=== PATIENT | female | born 1950 | race Caucasian/White ===

== ENCOUNTER 2016-05-12 15:25 | Emergency (ER) | payer MEDICARE, OTHER ==
[~2016-05-12] VITALS: Ht 160 cm; Wt 66.4 kg
[~2016-05-12 15:25] MED LIST: FOLI1 PO; MULT-29 PO; QUET100T PO; THIA100 PO
[2016-05-12 16:32] VITALS: BP 107/71
[2016-05-12] MEDS ORDERED: TRAZ-147 PO (16:42)
[2016-05-12] MEDS ORDERED: OMEP20 PO (16:42)
[2016-05-12] MEDS ORDERED: ADV250 IH (16:42)
[2016-05-12] MEDS ORDERED: AMLO-511 PO (16:42)
[2016-05-12] MEDS ORDERED: OXYB5 PO (16:42)
[2016-05-12] MEDS ORDERED: ALBU8HFA IH (16:42)
[2016-05-12] MEDS ORDERED: TRIF10 PO (16:42)
== END 2016-05-12 17:41 | disposition left against medical advice (07) ==
LOC: EMS 15:29
DX: Z00.8 Encounter for other general examination (principal); Z53.21 Procedure and treatment not carried out due to patient leaving prior to being seen by health care provider

== ENCOUNTER 2016-05-12 19:05 | Inpatient (IN) | payer MEDICARE, MEDICAID ==
[~2016-05-12] VITALS: Ht 162.6 cm; Wt 59.5 kg
[~2016-05-12 19:05] MED LIST changes: +ADV250 IH; +ALBU8HFA IH; +AMLO-511 PO; +OMEP20 PO; +OXYB5 PO; +TRAZ-147 PO; +TRIF10 PO
[2016-05-12 20:26] LABS: BASOPHILS % (AUTO) 0.9 % (0.0-2.0); EOSINOPHILS % (AUTO) 1.4 % (1.0-6.0); HEMATOCRIT 43.2 % (36-46); HEMOGLOBIN 14.3 g/dL (12.0-16.0); LYMPHOCYTES # (AUTO) 2.2 K/uL (1.0-4.8); LYMPHOCYTES % (AUTO) 24.7 % (22.0-44.0); MEAN CORPUSCULAR HEMOGLOBIN 29.6 pg (26.0-34.0); MEAN CORPUSCULAR HGB CONC 33.1 G/dL (31.0-37.0); MEAN CORPUSCULAR VOLUME 89 fL (80-100); MONOCYTES # (AUTO) 0.8 K/uL (0.1-1.0); MONOCYTES % (AUTO) 8.6 % (2.0-9.0); NEUTROPHILS # (AUTO) 5.8 K/uL (1.8-7.7); NEUTROPHILS % (AUTO) 64.4 % (40.0-70.0); PLATELET COUNT (AUTO) 319 K/uL (150-450); RED BLOOD CELL COUNT(AUTO) 4.83 MIL/uL (4.00-5.20); RED CELL DISTRIBUTION WIDTH 15.6 % (11.5-14.5)
[2016-05-12 20:36] LABS: ANION GAP 16 mmol/L (8-16); CALCIUM, TOTAL 8.7 mg/dL (8.8-10.5); CARBON DIOXIDE 21 mmol/L (22-29); CHLORIDE 106 mmol/L (98-107); CREATININE 1.09 mg/dL (0.60-1.30); GLOMERULAR FILTR. RATE CALC 50 mL/min (>60); POTASSIUM 3.3 mmol/L (3.5-5.1); SODIUM SERUM 143 mmol/L (136-145); UREA NITROGEN, BLOOD 27 mg/dL (7-18)
[2016-05-12 20:42] LABS: ALANINE AMINOTRANSFERASE 27 U/L (12-78); ALBUMIN 3.7 g/dL (3.4-5.0); ASPARTATE AMINOTRANSFERASE 43 U/L (15-37); BILIRUBIN,TOTAL 0.3 mg/dL (0.1-1.0); TOTAL PROTEIN, SERUM 7.2 g/dL (6.4-8.2)
[2016-05-12] MEDS ORDERED: MAGNESIUM HYDROXIDE SUSPENSION 30 ML UDCUP PO PRN (21:45)
[2016-05-12] MEDS ORDERED: ACETAMINOPHEN 325 MG TABLET PO PRN (21:45)
[2016-05-12] MEDS ORDERED: LOPERAMIDE HCL 2 MG CAPSULE PO PRN (21:45)
[2016-05-12] MEDS ORDERED: MAG HYDROX/AL HYDROX/SIMETH ES 30 ML SUSPENSION UDCUP PO PRN (21:45)
[2016-05-12] MEDS ORDERED: PROMETHAZINE HCL 25 MG TABLET PO PRN (21:45)
[2016-05-12] MEDS: ZOLPIDEM TARTRATE 10 MG TABLET PO PRN (22:01)
[2016-05-12] MEDS ORDERED: POTASSIUM CHLORIDE 20 MEQ ER TABLET PO ONE (22:15)
[2016-05-13 02:03] VITALS: BP 140/69
[2016-05-13] MEDS ORDERED: INFLUENZA VIRUS VACCINE QVS 2016-17 (3YR+)/PF 60 MCG/0.5 ML SYRINGE IM ONE (03:00)
[2016-05-13 03:35] LABS: APPEARANCE,URINE TURBID (CLEAR); GLUCOSE, URINE (UA) NEGATIVE (NEGATIVE); KETONES,URINE NEGATIVE (NEGATIVE); LEUKOCYTE ESTERASE ,URINE NEGATIVE (NEGATIVE); OCCULT BLOOD,URINE NEGATIVE (NEGATIVE); PH,URINE 5.5 (5.0-8.0); PROTEIN,URINE NEGATIVE (NEGATIVE)
[2016-05-13 03:39] LABS: ADD UA MICROSCOPIC NO
[2016-05-13 08:38] VITALS: BP 133/74
[2016-05-13] MEDS ORDERED: CloNIDine HCL 0.1 MG TABLET PO PRN (13:45)
[2016-05-13] MEDS ORDERED: LOPERAMIDE HCL 2 MG CAPSULE PO PRN (13:45)
[2016-05-13] MEDS ORDERED: PETROLATUM,WHITE 71 GM JELLY TP PRN (13:45)
[2016-05-13] MEDS ORDERED: ONDANSETRON HCL 4 MG TABLET PO PRN (13:45)
[2016-05-13] MEDS ORDERED: MAG HYDROX/AL HYDROX/SIMETH ES 30 ML SUSPENSION UDCUP PO PRN (13:45)
[2016-05-13] MEDS ORDERED: BACITRACIN 28.4 GM OINTMENT TP PRN (13:45)
[2016-05-13] MEDS ORDERED: ACETAMINOPHEN 325 MG TABLET PO PRN (13:45)
[2016-05-13] MEDS ORDERED: MAGNESIUM HYDROXIDE SUSPENSION 30 ML UDCUP PO PRN (13:45)
[2016-05-13] MEDS ORDERED: BENZOCAINE/MENTHOL LOZENGE [8 LOZENGES/PACKET] MM PRN (14:00)
[2016-05-13] MEDS: OXYBUTYNIN CHLORIDE 5 MG TABLET PO SCH (17:09)
[2016-05-13] MEDS: LORazepam 2 MG TABLET PO PRN (17:09)
[2016-05-14] MEDS: ZOLPIDEM TARTRATE 10 MG TABLET PO PRN (00:11)
[2016-05-14 05:18] VITALS: BP 140/80
[2016-05-14 07:11] LABS: ANION GAP 14 mmol/L (8-16); CALCIUM, TOTAL 8.5 mg/dL (8.8-10.5); CARBON DIOXIDE 24 mmol/L (22-29); CHLORIDE 110 mmol/L (98-107); CHOL/HDL RATIO 2.6 (3.9-5.7); CREATININE 0.77 mg/dL (0.60-1.30); GLOMERULAR FILTR. RATE CALC > 60 mL/min (>60); POTASSIUM 3.5 mmol/L (3.5-5.1); SODIUM SERUM 148 mmol/L (136-145); THYROID STIMULATING HORMONE 0.11 uIU/mL (0.36-3.74); UREA NITROGEN, BLOOD 32 mg/dL (7-18)
[2016-05-14] MEDS: OXYBUTYNIN CHLORIDE 5 MG TABLET PO SCH ×2 (07:58→16:11)
[2016-05-14] MEDS: HALOPERIDOL 5 MG TABLET PO SCH ×2 (07:58→16:11)
[2016-05-14] MEDS: BENZTROPINE MESYLATE 0.5 MG TABLET PO SCH ×2 (07:58→16:12)
[2016-05-14] MEDS: LORazepam 2 MG TABLET PO PRN ×3 (07:59→20:15)
[2016-05-14 08:29] VITALS: BP 143/83
[2016-05-14] MEDS: HALOPERIDOL 5 MG TABLET PO PRN (13:48)
[2016-05-14 22:34] VITALS: BP 142/78
[2016-05-15] MEDS: ZOLPIDEM TARTRATE 10 MG TABLET PO PRN (02:15)
[2016-05-15] MEDS: LORazepam 2 MG TABLET PO PRN ×3 (04:04→13:38)
[2016-05-15 06:10] VITALS: BP 139/76
[2016-05-15 08:00] VITALS: BP 148/60
[2016-05-15] MEDS: BENZTROPINE MESYLATE 0.5 MG TABLET PO SCH ×2 (08:26→16:24)
[2016-05-15] MEDS: OXYBUTYNIN CHLORIDE 5 MG TABLET PO SCH ×2 (08:27→16:24)
[2016-05-15] MEDS: HALOPERIDOL 5 MG TABLET PO SCH ×2 (08:27→16:24)
[2016-05-15] MEDS: HALOPERIDOL 5 MG TABLET PO PRN (13:38)
[2016-05-15 19:16] VITALS: BP 138/79
[2016-05-16] MEDS: HALOPERIDOL 5 MG TABLET PO PRN ×2 (03:37→14:19)
[2016-05-16] MEDS: LORazepam 2 MG TABLET PO PRN ×3 (04:34→14:19)
[2016-05-16 08:05] VITALS: BP 136/64
[2016-05-16] MEDS: HALOPERIDOL 5 MG TABLET PO SCH ×2 (08:19→16:02)
[2016-05-16] MEDS: BENZTROPINE MESYLATE 0.5 MG TABLET PO SCH ×2 (08:20→16:02)
[2016-05-16] MEDS: OXYBUTYNIN CHLORIDE 5 MG TABLET PO SCH ×2 (08:20→16:02)
[2016-05-16] MEDS: ALBUTEROL SULFATE HFA 90 MCG/PUFF 8 GM INHALER IH PRN ×2 (08:23→14:23)
[2016-05-16] MEDS: NICOTINE 7 MG/24 HOUR PATCH TD ONE ×2 (11:50→12:05)
[2016-05-16 16:35] VITALS: BP 146/69
[2016-05-17] MEDS: LORazepam 2 MG TABLET PO PRN ×3 (04:21→13:03)
[2016-05-17 04:30] VITALS: BP 141/63
[2016-05-17] MEDS: OXYBUTYNIN CHLORIDE 5 MG TABLET PO SCH ×2 (08:15→16:06)
[2016-05-17] MEDS: CHOLECALCIFEROL (VIT D3) 1,000 UNITS TABLET PO SCH (08:15)
[2016-05-17] MEDS: BENZTROPINE MESYLATE 0.5 MG TABLET PO SCH ×2 (08:15→16:06)
[2016-05-17] MEDS: HALOPERIDOL 10 MG TABLET PO SCH ×2 (08:15→16:06)
[2016-05-17] MEDS: ALBUTEROL SULFATE HFA 90 MCG/PUFF 8 GM INHALER IH PRN ×2 (08:16→23:36)
[2016-05-17 08:30] VITALS: BP 139/52
[2016-05-17] MEDS: HALOPERIDOL 5 MG TABLET PO PRN (13:02)
[2016-05-17] MEDS: IBUPROFEN 600 MG TABLET PO PRN ×2 (14:17→23:36)
[2016-05-17 20:10] VITALS: BP 138/78
[2016-05-17] MEDS ORDERED: DIVALPROEX SODIUM 500 MG ER TABLET PO SCH (21:00)
[2016-05-17] MEDS: ZOLPIDEM TARTRATE 10 MG TABLET PO PRN (21:01)
[2016-05-17 23:37] VITALS: BP 120/70
[2016-05-18] MEDS: BENZTROPINE MESYLATE 0.5 MG TABLET PO SCH ×2 (07:40→17:21)
[2016-05-18] MEDS: OXYBUTYNIN CHLORIDE 5 MG TABLET PO SCH ×2 (07:40→17:21)
[2016-05-18] MEDS: LORazepam 2 MG TABLET PO PRN (07:40)
[2016-05-18] MEDS: CHOLECALCIFEROL (VIT D3) 1,000 UNITS TABLET PO SCH (07:40)
[2016-05-18] MEDS: ALBUTEROL SULFATE HFA 90 MCG/PUFF 8 GM INHALER IH PRN ×3 (07:41→20:42)
[2016-05-18] MEDS: HALOPERIDOL 10 MG TABLET PO SCH ×2 (07:41→17:21)
[2016-05-18 08:00] VITALS: BP 142/75
[2016-05-18] MEDS ORDERED: DiphenhydrAMINE HCL 50 MG/ML VIAL IM ONE (10:15)
[2016-05-18] MEDS ORDERED: LORazepam 2 MG/ML VIAL IM ONE (10:15)
[2016-05-18] MEDS ORDERED: HALOPERIDOL LACTATE 5 MG/ML VIAL IM ONE (10:15)
[2016-05-18] MEDS: NICOTINE 21 MG/24 HOUR PATCH TD SCH (10:18)
[2016-05-18 16:09] VITALS: BP 144/71
[2016-05-18] MEDS: IBUPROFEN 600 MG TABLET PO PRN (17:38)
[2016-05-18] MEDS ORDERED: DIVALPROEX SODIUM 500 MG ER TABLET PO SCH (21:00)
[2016-05-19 04:33] VITALS: BP 140/76
[2016-05-19] MEDS: IBUPROFEN 600 MG TABLET PO PRN (04:33)
[2016-05-19 06:33] LABS: ALANINE AMINOTRANSFERASE 22 U/L (12-78); ALBUMIN 3.4 g/dL (3.4-5.0); ANION GAP 6 mmol/L (8-16); ASPARTATE AMINOTRANSFERASE 16 U/L (15-37); BILIRUBIN,TOTAL 0.2 mg/dL (0.1-1.0); CALCIUM, TOTAL 8.6 mg/dL (8.8-10.5); CARBON DIOXIDE 30 mmol/L (22-29); CHLORIDE 106 mmol/L (98-107); CREATININE 0.68 mg/dL (0.60-1.30); GLOMERULAR FILTR. RATE CALC > 60 mL/min (>60); POTASSIUM 4.1 mmol/L (3.5-5.1); SODIUM SERUM 142 mmol/L (136-145); TOTAL PROTEIN, SERUM 6.5 g/dL (6.4-8.2); UREA NITROGEN, BLOOD 13 mg/dL (7-18); VALPROIC ACID 9 mcg/mL (50-100)
[2016-05-19 06:51] LABS: BASOPHILS % (AUTO) 0.8 % (0.0-2.0); EOSINOPHILS % (AUTO) 2.5 % (1.0-6.0); HEMATOCRIT 43.6 % (36-46); LYMPHOCYTES % (AUTO) 30.2 % (22.0-44.0); MEAN CORPUSCULAR HEMOGLOBIN 29.1 pg (26.0-34.0); MEAN CORPUSCULAR HGB CONC 32.2 G/dL (31.0-37.0); MEAN CORPUSCULAR VOLUME 90 fL (80-100); MONOCYTES # (AUTO) 0.6 K/uL (0.1-1.0); NEUTROPHILS # (AUTO) 3.7 K/uL (1.8-7.7); NEUTROPHILS % (AUTO) 57.5 % (40.0-70.0); PLATELET COUNT (AUTO) 231 K/uL (150-450); RED BLOOD CELL COUNT(AUTO) 4.82 MIL/uL (4.00-5.20); RED CELL DISTRIBUTION WIDTH 15.1 % (11.5-14.5); WHITE BLOOD COUNT (AUTO) 6.5 K/uL (4.5-11.0)
[2016-05-19 08:00] VITALS: BP 140/60
[2016-05-19] MEDS: OXYBUTYNIN CHLORIDE 5 MG TABLET PO SCH (08:00)
[2016-05-19] MEDS: BENZTROPINE MESYLATE 0.5 MG TABLET PO SCH (08:00)
[2016-05-19] MEDS: CHOLECALCIFEROL (VIT D3) 1,000 UNITS TABLET PO SCH (08:00)
[2016-05-19] MEDS: HALOPERIDOL 10 MG TABLET PO SCH (08:00)
[2016-05-19] MEDS: NICOTINE 21 MG/24 HOUR PATCH TD SCH (08:01)
[2016-05-19] MEDS ORDERED: DIVA500T35 PO (12:15)
[2016-05-19] MEDS ORDERED: BENZ0.5T6 PO (12:15)
[2016-05-19] MEDS ORDERED: HALO10 PO (12:16)
== END 2016-05-19 14:00 | disposition home or self-care (01) | DRG 885 ==
LOC: EMS 19:07 → EEVIPCON 19:07 → 3EX 05-13 01:08
PROVIDERS: ADMIT Psychiatry & Neurology Psychiatry; ATTEND Psychiatry & Neurology Psychiatry
DX: F25.0 Schizoaffective disorder, bipolar type (principal); R45.851 Suicidal ideations; F15.90 Other stimulant use, unspecified, uncomplicated; F10.10 Alcohol abuse, uncomplicated; E87.6 Hypokalemia; E83.51 Hypocalcemia; E78.00 Pure hypercholesterolemia, unspecified; F17.210 Nicotine dependence, cigarettes, uncomplicated; H91.90 Unspecified hearing loss, unspecified ear; I10 Essential (primary) hypertension; F19.10 Other psychoactive substance abuse, uncomplicated; J44.9 Chronic obstructive pulmonary disease, unspecified; K21.9 Gastro-esophageal reflux disease without esophagitis; M19.90 Unspecified osteoarthritis, unspecified site; R32 Unspecified urinary incontinence; Z59.0 Homelessness; Z28.21 Immunization not carried out because of patient refusal; Z88.0 Allergy status to penicillin; Z79.51 Long term (current) use of inhaled steroids; Z79.899 Other long term (current) drug therapy; Z88.8 Allergy status to other drugs, medicaments and biological substances
CPT/HCPCS: 82306; 84443; 99285; G0480; J1200; J1630; J2060; J3535

== ENCOUNTER 2017-01-12 11:47 | Inpatient (IN) | payer MEDICARE, OTHER ==
[~2017-01-12] VITALS: Ht 160 cm; Wt 59.6 kg
[~2017-01-12 11:47] MED LIST changes: -ADV250 IH; -ALBU8HFA IH; -AMLO-511 PO; +BENZ0.5T6 PO; +DIVA500T35 PO; -FOLI1 PO; +HALO10 PO; -MULT-29 PO; -OMEP20 PO; -QUET100T PO; -THIA100 PO; -TRAZ-147 PO; -TRIF10 PO
[2017-01-12 14:10] VITALS: BP 125/59
[2017-01-12] MEDS ORDERED: ONDANSETRON HCL 4 MG/2 ML VIAL IVP PRN (15:00)
[2017-01-12 15:17] VITALS: BP 117/68
[2017-01-12 16:55] LABS: BASOPHILS # (AUTO) 0.04 K/uL (0.00-0.20); BASOPHILS % (AUTO) 0.6 % (0.0-2.0); EOSINOPHILS # (AUTO) 0.42 K/uL (0.00-0.70); EOSINOPHILS % (AUTO) 6.65 % (1.0-6.0); HEMOGLOBIN 12.3 g/dL (12.0-16.0); LYMPHOCYTES # (AUTO) 1.9 K/uL (1.0-4.8); LYMPHOCYTES % (AUTO) 29.4 % (22.0-44.0); MEAN CORPUSCULAR HEMOGLOBIN 27.1 pg (26.0-34.0); MEAN CORPUSCULAR HGB CONC 30.7 G/dL (31.0-37.0); MEAN CORPUSCULAR VOLUME 88 fL (80-100); MONOCYTES # (AUTO) 0.6 K/uL (0.1-1.0); MONOCYTES % (AUTO) 9.7 % (2.0-9.0); NEUTROPHILS # (AUTO) 3.4 K/uL (1.8-7.7); NEUTROPHILS % (AUTO) 53.6 % (40.0-70.0); PLATELET COUNT (AUTO) 310 K/uL (150-450); RED BLOOD CELL COUNT(AUTO) 4.53 MIL/uL (4.00-5.20); RED CELL DISTRIBUTION WIDTH 16.2 % (11.5-14.5); WHITE BLOOD COUNT (AUTO) 6.3 K/uL (4.5-11.0)
[2017-01-12 17:13] LABS: PROTHROMBIN TIME 10.6 SEC (9.4-11.6)
[2017-01-12 17:28] LABS: ALANINE AMINOTRANSFERASE 23 U/L (12-78); ANION GAP 12 mmol/L (8-16); ASPARTATE AMINOTRANSFERASE 13 U/L (15-37); BILIRUBIN,TOTAL 0.2 mg/dL (0.1-1.0); CALCIUM, TOTAL 8.7 mg/dL (8.8-10.5); CARBON DIOXIDE 21 mmol/L (22-29); CHLORIDE 106 mmol/L (98-107); CREATININE 0.62 mg/dL (0.60-1.30); GLOMERULAR FILTR. RATE CALC > 60 mL/min (>60); POTASSIUM 3.8 mmol/L (3.5-5.1); SODIUM SERUM 139 mmol/L (136-145); TOTAL PROTEIN, SERUM 6.5 g/dL (6.4-8.2); UREA NITROGEN, BLOOD 16 mg/dL (7-18)
[2017-01-12] MEDS ORDERED: -PHARMACY VACCINE NOTE- MISC ONE ×2 (18:00)
[2017-01-12 19:47] VITALS: BP 128/64
[2017-01-12] MEDS: OXYBUTYNIN CHLORIDE 5 MG TABLET PO SCH (20:16)
[2017-01-12] MEDS: MIRTAZAPINE 15 MG TABLET PO SCH (20:17)
[2017-01-12] MEDS: LEVOFLOXACIN 500 MG TABLET PO SCH (20:17)
[2017-01-12] MEDS: TRIFLUOPERAZINE HCL 10 MG TABLET PO SCH (20:18)
[2017-01-12] MEDS: HALOPERIDOL 10 MG TABLET PO SCH (20:18)
[2017-01-12] MEDS: BENZTROPINE MESYLATE 0.5 MG TABLET PO SCH (20:18)
[2017-01-12 23:24] VITALS: BP 123/63
[2017-01-13] MEDS: SODIUM CHLORIDE 0.9% 1,000 ML IV SCH ×2 (04:24→20:42)
[2017-01-13 05:10] VITALS: BP 126/67
[2017-01-13] MEDS: OMEPRAZOLE 20 MG CAPSULE PO SCH (06:03)
[2017-01-13 07:05] LABS: BASOPHILS % (AUTO) 1.1 % (0.0-2.0); EOSINOPHILS % (AUTO) 5.9 % (1.0-6.0); HEMATOCRIT 37.9 % (36-46); HEMOGLOBIN 12.8 g/dL (12.0-16.0); LYMPHOCYTES # (AUTO) 1.5 K/uL (1.0-4.8); LYMPHOCYTES % (AUTO) 21.4 % (22.0-44.0); MEAN CORPUSCULAR HEMOGLOBIN 29.6 pg (26.0-34.0); MEAN CORPUSCULAR HGB CONC 33.7 G/dL (31.0-37.0); MEAN CORPUSCULAR VOLUME 88 fL (80-100); MONOCYTES # (AUTO) 0.6 K/uL (0.1-1.0); NEUTROPHILS # (AUTO) 4.4 K/uL (1.8-7.7); NEUTROPHILS % (AUTO) 62.6 % (40.0-70.0); PLATELET COUNT (AUTO) 289 K/uL (150-450)
[2017-01-13 07:14] LABS: ANION GAP 10 mmol/L (8-16); CALCIUM, TOTAL 8.8 mg/dL (8.8-10.5); CARBON DIOXIDE 24 mmol/L (22-29); CHLORIDE 105 mmol/L (98-107); CREATININE 0.65 mg/dL (0.60-1.30); GLOMERULAR FILTR. RATE CALC > 60 mL/min (>60); POTASSIUM 4.1 mmol/L (3.5-5.1); SODIUM SERUM 139 mmol/L (136-145); UREA NITROGEN, BLOOD 13 mg/dL (7-18)
[2017-01-13 07:54] VITALS: BP 142/73
[2017-01-13] MEDS: OXYBUTYNIN CHLORIDE 5 MG TABLET PO SCH ×2 (08:15→20:35)
[2017-01-13] MEDS: BENZTROPINE MESYLATE 0.5 MG TABLET PO SCH ×2 (08:15→20:35)
[2017-01-13] MEDS: TRIFLUOPERAZINE HCL 10 MG TABLET PO SCH ×2 (08:15→21:00)
[2017-01-13] MEDS: LEVOFLOXACIN 500 MG TABLET PO SCH (08:15)
[2017-01-13] MEDS: HALOPERIDOL 10 MG TABLET PO SCH ×2 (08:15→20:35)
[2017-01-13] MEDS: ASPIRIN 325 MG TABLET PO SCH (08:15)
[2017-01-13] MEDS: AmLODIPine BESYLATE 5 MG TABLET PO SCH (08:16)
[2017-01-13 11:32] VITALS: BP 135/67
[2017-01-13] MEDS: FLUTICASONE/VILANTEROL 200-25 MCG/INH INHALER [14] IH SCH (14:30)
[2017-01-13] MEDS: ALBUTEROL SULFATE HFA 90 MCG/PUFF 8 GM INHALER IH PRN (14:31)
[2017-01-13] MEDS ORDERED: MAGNESIUM SULFATE 2 GM in DEXTROSE 5%-WATER 50 ML IV PRN (14:45)
[2017-01-13] MEDS ORDERED: MAGNESIUM SULFATE 4 GM/WATER 100 ML IV PRN (14:45)
[2017-01-13] MEDS: MAGNESIUM OXIDE 400 MG TABLET PO PRN (14:48)
[2017-01-13] MEDS ORDERED: LEVOFLOXACIN 500 MG TABLET PO SCH (15:30)
[2017-01-13 16:06] VITALS: BP 126/77
[2017-01-13 19:56] VITALS: BP 118/48
[2017-01-13] MEDS: MIRTAZAPINE 15 MG TABLET PO SCH (20:35)
[2017-01-13 23:06] VITALS: BP 137/54
[2017-01-14 04:12] VITALS: BP 118/52
[2017-01-14] MEDS: OMEPRAZOLE 20 MG CAPSULE PO SCH (06:12)
[2017-01-14 08:00] VITALS: BP 148/69
[2017-01-14] MEDS: FLUTICASONE/VILANTEROL 200-25 MCG/INH INHALER [14] IH SCH (08:26)
[2017-01-14] MEDS: TRIFLUOPERAZINE HCL 10 MG TABLET PO SCH ×2 (08:26→19:54)
[2017-01-14] MEDS: ASPIRIN 325 MG TABLET PO SCH (08:27)
[2017-01-14] MEDS: OXYBUTYNIN CHLORIDE 5 MG TABLET PO SCH ×2 (08:27→19:53)
[2017-01-14] MEDS: HALOPERIDOL 10 MG TABLET PO SCH ×2 (08:27→19:54)
[2017-01-14] MEDS: LEVOFLOXACIN 500 MG TABLET PO SCH (08:27)
[2017-01-14] MEDS: BENZTROPINE MESYLATE 0.5 MG TABLET PO SCH ×2 (08:27→19:53)
[2017-01-14] MEDS: AmLODIPine BESYLATE 5 MG TABLET PO SCH (08:28)
[2017-01-14] MEDS: SODIUM CHLORIDE 0.9% 1,000 ML IV SCH (09:48)
[2017-01-14] MEDS ORDERED: *CLINICAL-GENTAMICIN DOSING CLINICAL ONE ×2 (10:15)
[2017-01-14] MEDS: NICOTINE 21 MG/24 HOUR PATCH TD SCH (11:10)
[2017-01-14 11:43] VITALS: BP 132/74
[2017-01-14 14:32] LABS: APPEARANCE,URINE CLOUDY (CLEAR); GLUCOSE, URINE (UA) NEGATIVE (NEGATIVE); KETONES,URINE NEGATIVE (NEGATIVE); LEUKOCYTE ESTERASE ,URINE LARGE (NEGATIVE); OCCULT BLOOD,URINE SMALL (NEGATIVE); PH,URINE 6.5 (5.0-8.0); PROTEIN,URINE NEGATIVE (NEGATIVE)
[2017-01-14 14:41] LABS: RBC,URINE 0-2 /HPF (0-2); SQUAMOUS EPITHELIAL CELL,UR Few /LPF (None Seen); WBC,URINE 51-100 /HPF (0-5)
[2017-01-14 16:07] VITALS: BP 124/65
[2017-01-14] MEDS: GENTAMICIN 100 MG/NACL ISO-OSM 50 ML IV SCH (16:17)
[2017-01-14] MEDS: MAGNESIUM OXIDE 400 MG TABLET PO PRN ×3 (16:38→21:46)
[2017-01-14 19:44] VITALS: BP 142/69
[2017-01-14] MEDS: MIRTAZAPINE 15 MG TABLET PO SCH (19:54)
[2017-01-14 23:41] VITALS: BP 143/70
[2017-01-15] MEDS: GENTAMICIN 100 MG/NACL ISO-OSM 50 ML IV SCH ×4 (00:59→22:56)
[2017-01-15 04:10] VITALS: BP 132/69
[2017-01-15] MEDS: ALBUTEROL SULFATE HFA 90 MCG/PUFF 8 GM INHALER IH PRN (04:53)
[2017-01-15 06:14] LABS: ANION GAP 9 mmol/L (8-16); CALCIUM, TOTAL 8.8 mg/dL (8.8-10.5); CARBON DIOXIDE 26 mmol/L (22-29); CHLORIDE 105 mmol/L (98-107); GLOMERULAR FILTR. RATE CALC > 60 mL/min (>60); POTASSIUM 3.7 mmol/L (3.5-5.1); SODIUM SERUM 140 mmol/L (136-145); UREA NITROGEN, BLOOD 11 mg/dL (7-18)
[2017-01-15] MEDS: OMEPRAZOLE 20 MG CAPSULE PO SCH (06:23)
[2017-01-15 06:48] LABS: BASOPHILS # (AUTO) 0.07 K/uL (0.00-0.20); BASOPHILS % (AUTO) 1.1 % (0.0-2.0); EOSINOPHILS # (AUTO) 0.28 K/uL (0.00-0.70); EOSINOPHILS % (AUTO) 4.28 % (1.0-6.0); HEMATOCRIT 41.8 % (36-46); HEMOGLOBIN 14.1 g/dL (12.0-16.0); LYMPHOCYTES # (AUTO) 1.9 K/uL (1.0-4.8); MEAN CORPUSCULAR HEMOGLOBIN 29.8 pg (26.0-34.0); MEAN CORPUSCULAR HGB CONC 33.8 G/dL (31.0-37.0); MEAN CORPUSCULAR VOLUME 88 fL (80-100); MONOCYTES # (AUTO) 0.5 K/uL (0.1-1.0); MONOCYTES % (AUTO) 7.4 % (2.0-9.0); NEUTROPHILS # (AUTO) 3.8 K/uL (1.8-7.7); NEUTROPHILS % (AUTO) 58.1 % (40.0-70.0); PLATELET COUNT (AUTO) 295 K/uL (150-450); RED BLOOD CELL COUNT(AUTO) 4.74 MIL/uL (4.00-5.20); RED CELL DISTRIBUTION WIDTH 16.2 % (11.5-14.5); WHITE BLOOD COUNT (AUTO) 6.5 K/uL (4.5-11.0)
[2017-01-15 07:34] VITALS: BP 132/67
[2017-01-15] MEDS: ASPIRIN 325 MG TABLET PO SCH (07:58)
[2017-01-15] MEDS: FLUTICASONE/VILANTEROL 200-25 MCG/INH INHALER [14] IH SCH (07:58)
[2017-01-15] MEDS: OXYBUTYNIN CHLORIDE 5 MG TABLET PO SCH ×2 (07:58→19:59)
[2017-01-15] MEDS: BENZTROPINE MESYLATE 0.5 MG TABLET PO SCH ×2 (07:58→19:54)
[2017-01-15] MEDS: TRIFLUOPERAZINE HCL 10 MG TABLET PO SCH ×2 (07:59→19:54)
[2017-01-15] MEDS: AmLODIPine BESYLATE 5 MG TABLET PO SCH (07:59)
[2017-01-15] MEDS: NICOTINE 21 MG/24 HOUR PATCH TD SCH (07:59)
[2017-01-15] MEDS: HALOPERIDOL 10 MG TABLET PO SCH ×2 (07:59→19:55)
[2017-01-15 13:11] VITALS: BP 121/58
[2017-01-15 19:33] VITALS: BP 128/57
[2017-01-15] MEDS: MIRTAZAPINE 15 MG TABLET PO SCH (19:59)
[2017-01-15 23:46] VITALS: BP 121/59
[2017-01-16 04:15] VITALS: BP 134/67
[2017-01-16] MEDS: OMEPRAZOLE 20 MG CAPSULE PO SCH (05:41)
[2017-01-16] MEDS: OxyCODONE HCL/ACETAMINOPHEN 5-325 MG TABLET PO PRN ×3 (06:50→18:24)
[2017-01-16 07:20] VITALS: BP 135/58
[2017-01-16 07:29] LABS: ANION GAP 5 mmol/L (8-16); CALCIUM, TOTAL 9.2 mg/dL (8.8-10.5); CARBON DIOXIDE 30 mmol/L (22-29); CHLORIDE 102 mmol/L (98-107); CREATININE 0.76 mg/dL (0.60-1.30); GLOMERULAR FILTR. RATE CALC > 60 mL/min (>60); POTASSIUM 3.9 mmol/L (3.5-5.1); SODIUM SERUM 137 mmol/L (136-145); UREA NITROGEN, BLOOD 17 mg/dL (7-18)
[2017-01-16 07:42] LABS: APPEARANCE,URINE TURBID (CLEAR); GLUCOSE, URINE (UA) NEGATIVE (NEGATIVE); KETONES,URINE NEGATIVE (NEGATIVE); LEUKOCYTE ESTERASE ,URINE LARGE (NEGATIVE); OCCULT BLOOD,URINE SMALL (NEGATIVE); PH,URINE 6.5 (5.0-8.0); PROTEIN,URINE NEGATIVE (NEGATIVE)
[2017-01-16] MEDS: GENTAMICIN 100 MG/NACL ISO-OSM 50 ML IV SCH ×3 (07:44→22:28)
[2017-01-16] MEDS: NICOTINE 21 MG/24 HOUR PATCH TD SCH (08:22)
[2017-01-16] MEDS: OXYBUTYNIN CHLORIDE 5 MG TABLET PO SCH ×2 (08:22→20:09)
[2017-01-16] MEDS: TRIFLUOPERAZINE HCL 10 MG TABLET PO SCH ×2 (08:22→20:09)
[2017-01-16] MEDS: HALOPERIDOL 10 MG TABLET PO SCH ×2 (08:22→20:09)
[2017-01-16] MEDS: ASPIRIN 325 MG TABLET PO SCH (08:22)
[2017-01-16] MEDS: AmLODIPine BESYLATE 5 MG TABLET PO SCH (08:23)
[2017-01-16] MEDS: FLUTICASONE/VILANTEROL 200-25 MCG/INH INHALER [14] IH SCH (08:23)
[2017-01-16] MEDS: BENZTROPINE MESYLATE 0.5 MG TABLET PO SCH ×2 (08:23→20:09)
[2017-01-16 08:43] LABS: SQUAMOUS EPITHELIAL CELL,UR Few /LPF (None Seen); WBC,URINE Full Field /HPF (0-5)
[2017-01-16 11:30] VITALS: BP 128/59
[2017-01-16] MEDS ORDERED: IOVERSOL 350 MG/ML 100 ML VIAL ONE (13:12)
[2017-01-16 15:31] VITALS: BP 130/67
[2017-01-16 19:33] VITALS: BP 154/73
[2017-01-16] MEDS: NITROFURANTOIN/NITROFURAN MAC 100 MG CAPSULE [MACROBID] PO SCH (20:09)
[2017-01-16] MEDS: MIRTAZAPINE 15 MG TABLET PO SCH (20:09)
[2017-01-16] MEDS: SODIUM CHLORIDE 0.9% 1,000 ML IV SCH (22:28)
[2017-01-17] VITALS (7 sets, daily range): BP systolic 112–148; BP diastolic 43–78
[2017-01-17] MEDS: OMEPRAZOLE 20 MG CAPSULE PO SCH (06:01)
[2017-01-17] MEDS: GENTAMICIN 100 MG/NACL ISO-OSM 50 ML IV SCH ×2 (06:02→15:10)
[2017-01-17] MEDS: OxyCODONE HCL/ACETAMINOPHEN 5-325 MG TABLET PO PRN ×3 (06:02→16:37)
[2017-01-17 07:15] LABS: BASOPHILS % (AUTO) 0.6 % (0.0-2.0); EOSINOPHILS % (AUTO) 2.8 % (1.0-6.0); HEMATOCRIT 43.3 % (36-46); HEMOGLOBIN 14.6 g/dL (12.0-16.0); LYMPHOCYTES # (AUTO) 2.3 K/uL (1.0-4.8); LYMPHOCYTES % (AUTO) 25.9 % (22.0-44.0); MEAN CORPUSCULAR HEMOGLOBIN 29.7 pg (26.0-34.0); MEAN CORPUSCULAR HGB CONC 33.7 G/dL (31.0-37.0); MEAN CORPUSCULAR VOLUME 88 fL (80-100); MONOCYTES # (AUTO) 0.5 K/uL (0.1-1.0); MONOCYTES % (AUTO) 5.7 % (2.0-9.0); NEUTROPHILS # (AUTO) 5.9 K/uL (1.8-7.7); PLATELET COUNT (AUTO) 309 K/uL (150-450); RED BLOOD CELL COUNT(AUTO) 4.91 MIL/uL (4.00-5.20); RED CELL DISTRIBUTION WIDTH 15.2 % (11.5-14.5)
[2017-01-17 07:42] LABS: ANION GAP 6 mmol/L (8-16); CALCIUM, TOTAL 8.9 mg/dL (8.8-10.5); CARBON DIOXIDE 28 mmol/L (22-29); CHLORIDE 102 mmol/L (98-107); GLOMERULAR FILTR. RATE CALC > 60 mL/min (>60); POTASSIUM 4.1 mmol/L (3.5-5.1); SODIUM SERUM 136 mmol/L (136-145); UREA NITROGEN, BLOOD 17 mg/dL (7-18)
[2017-01-17] MEDS: AmLODIPine BESYLATE 5 MG TABLET PO SCH (08:52)
[2017-01-17] MEDS: HALOPERIDOL 10 MG TABLET PO SCH ×2 (08:52→20:34)
[2017-01-17] MEDS: TRIFLUOPERAZINE HCL 10 MG TABLET PO SCH ×2 (08:52→20:34)
[2017-01-17] MEDS: BENZTROPINE MESYLATE 0.5 MG TABLET PO SCH ×2 (08:52→20:34)
[2017-01-17] MEDS: NICOTINE 21 MG/24 HOUR PATCH TD SCH (08:52)
[2017-01-17] MEDS: ASPIRIN 325 MG TABLET PO SCH (08:52)
[2017-01-17] MEDS: NITROFURANTOIN/NITROFURAN MAC 100 MG CAPSULE [MACROBID] PO SCH ×2 (08:52→20:34)
[2017-01-17] MEDS: FLUTICASONE/VILANTEROL 200-25 MCG/INH INHALER [14] IH SCH (08:52)
[2017-01-17] MEDS: OXYBUTYNIN CHLORIDE 5 MG TABLET PO SCH ×2 (08:52→20:34)
[2017-01-17] MEDS: SODIUM CHLORIDE 0.9% 1,000 ML IV SCH (12:49)
[2017-01-17] MEDS: MIRTAZAPINE 15 MG TABLET PO SCH (20:41)
[2017-01-18] MEDS: SODIUM CHLORIDE 0.9% 1,000 ML IV SCH (01:33)
[2017-01-18] MEDS: OxyCODONE HCL/ACETAMINOPHEN 5-325 MG TABLET PO PRN ×4 (02:42→17:27)
[2017-01-18 05:07] VITALS: BP 123/56
[2017-01-18] MEDS: GENTAMICIN 120 MG/NACL ISO-OSM 100 ML IV SCH ×2 (05:18→18:08)
[2017-01-18] MEDS ORDERED: GENTAMICIN 100 MG/NACL ISO-OSM 50 ML IV SCH (06:00)
[2017-01-18] MEDS: OMEPRAZOLE 20 MG CAPSULE PO SCH (06:31)
[2017-01-18 06:56] LABS: ANION GAP 10 mmol/L (8-16); CALCIUM, TOTAL 9.2 mg/dL (8.8-10.5); CARBON DIOXIDE 26 mmol/L (22-29); CHLORIDE 104 mmol/L (98-107); GLOMERULAR FILTR. RATE CALC > 60 mL/min (>60); SODIUM SERUM 140 mmol/L (136-145); UREA NITROGEN, BLOOD 13 mg/dL (7-18)
[2017-01-18 07:34] VITALS: BP 109/48
[2017-01-18] MEDS: ASPIRIN 325 MG TABLET PO SCH (08:33)
[2017-01-18] MEDS: AmLODIPine BESYLATE 5 MG TABLET PO SCH (08:33)
[2017-01-18] MEDS: NITROFURANTOIN/NITROFURAN MAC 100 MG CAPSULE [MACROBID] PO SCH ×2 (08:34→21:14)
[2017-01-18] MEDS: BENZTROPINE MESYLATE 0.5 MG TABLET PO SCH ×2 (08:34→21:14)
[2017-01-18] MEDS: NICOTINE 21 MG/24 HOUR PATCH TD SCH (08:34)
[2017-01-18] MEDS: TRIFLUOPERAZINE HCL 10 MG TABLET PO SCH ×2 (08:34→21:14)
[2017-01-18] MEDS: HALOPERIDOL 10 MG TABLET PO SCH ×2 (08:35→21:14)
[2017-01-18] MEDS: ALBUTEROL SULFATE HFA 90 MCG/PUFF 8 GM INHALER IH PRN (08:35)
[2017-01-18] MEDS: FLUTICASONE/VILANTEROL 200-25 MCG/INH INHALER [14] IH SCH (08:35)
[2017-01-18] MEDS: OXYBUTYNIN CHLORIDE 5 MG TABLET PO SCH ×2 (08:39→21:14)
[2017-01-18 11:15] VITALS: BP 146/70
[2017-01-18 15:59] VITALS: BP 128/53
[2017-01-18 19:16] VITALS: BP_SYST 108; BP_SYST 130; BP_DIAS 52; BP_DIAS 53
[2017-01-18] MEDS: MIRTAZAPINE 15 MG TABLET PO SCH (21:14)
[2017-01-18 23:20] VITALS: BP 129/54
[2017-01-19] MEDS: ZOLPIDEM TARTRATE 5 MG TABLET PO PRN (00:05)
[2017-01-19] MEDS: OxyCODONE HCL/ACETAMINOPHEN 5-325 MG TABLET PO PRN ×4 (00:05→16:34)
[2017-01-19 04:35] VITALS: BP 144/76
[2017-01-19] MEDS: GENTAMICIN 120 MG/NACL ISO-OSM 100 ML IV SCH ×2 (05:32→17:53)
[2017-01-19] MEDS: OMEPRAZOLE 20 MG CAPSULE PO SCH (05:32)
[2017-01-19] MEDS: SODIUM CHLORIDE 0.9% 1,000 ML IV SCH ×2 (05:37→17:54)
[2017-01-19 06:44] LABS: ANION GAP 5 mmol/L (8-16); CALCIUM, TOTAL 9.1 mg/dL (8.8-10.5); CARBON DIOXIDE 31 mmol/L (22-29); CHLORIDE 103 mmol/L (98-107); GLOMERULAR FILTR. RATE CALC > 60 mL/min (>60); POTASSIUM 4.3 mmol/L (3.5-5.1); SODIUM SERUM 139 mmol/L (136-145); UREA NITROGEN, BLOOD 12 mg/dL (7-18)
[2017-01-19 07:26] VITALS: BP 134/65
[2017-01-19] MEDS: TRIFLUOPERAZINE HCL 10 MG TABLET PO SCH ×2 (08:56→20:13)
[2017-01-19] MEDS: NITROFURANTOIN/NITROFURAN MAC 100 MG CAPSULE [MACROBID] PO SCH ×2 (08:56→20:13)
[2017-01-19] MEDS: AmLODIPine BESYLATE 5 MG TABLET PO SCH (08:56)
[2017-01-19] MEDS: NICOTINE 21 MG/24 HOUR PATCH TD SCH (08:56)
[2017-01-19] MEDS: BENZTROPINE MESYLATE 0.5 MG TABLET PO SCH ×2 (08:56→20:13)
[2017-01-19] MEDS: OXYBUTYNIN CHLORIDE 5 MG TABLET PO SCH ×2 (08:56→20:13)
[2017-01-19] MEDS: FLUTICASONE/VILANTEROL 200-25 MCG/INH INHALER [14] IH SCH (08:56)
[2017-01-19] MEDS: HALOPERIDOL 10 MG TABLET PO SCH ×2 (08:57→20:13)
[2017-01-19] MEDS: ASPIRIN 325 MG TABLET PO SCH (08:58)
[2017-01-19 12:01] VITALS: BP 133/76
[2017-01-19 15:40] VITALS: BP 110/56
[2017-01-19 19:28] VITALS: BP 135/66
[2017-01-19] MEDS: MIRTAZAPINE 15 MG TABLET PO SCH (20:13)
[2017-01-20] VITALS (7 sets, daily range): BP systolic 104–143; BP diastolic 53–66
[2017-01-20] MEDS: OxyCODONE HCL/ACETAMINOPHEN 5-325 MG TABLET PO PRN ×2 (05:28→11:56)
[2017-01-20] MEDS: OMEPRAZOLE 20 MG CAPSULE PO SCH (05:30)
[2017-01-20] MEDS: ALBUTEROL SULFATE HFA 90 MCG/PUFF 8 GM INHALER IH PRN (05:40)
[2017-01-20] MEDS: GENTAMICIN 120 MG/NACL ISO-OSM 100 ML IV SCH ×2 (06:00→17:10)
[2017-01-20] MEDS: SODIUM CHLORIDE 0.9% 1,000 ML IV SCH ×3 (06:00→21:02)
[2017-01-20 06:29] LABS: ANION GAP 6 mmol/L (8-16); CALCIUM, TOTAL 9.1 mg/dL (8.8-10.5); CARBON DIOXIDE 28 mmol/L (22-29); CHLORIDE 103 mmol/L (98-107); CREATININE 0.71 mg/dL (0.60-1.30); GLOMERULAR FILTR. RATE CALC > 60 mL/min (>60); POTASSIUM 4.1 mmol/L (3.5-5.1); SODIUM SERUM 137 mmol/L (136-145); UREA NITROGEN, BLOOD 15 mg/dL (7-18)
[2017-01-20] MEDS: ASPIRIN 325 MG TABLET PO SCH (08:00)
[2017-01-20] MEDS: NICOTINE 21 MG/24 HOUR PATCH TD SCH (09:07)
[2017-01-20] MEDS: FLUTICASONE/VILANTEROL 200-25 MCG/INH INHALER [14] IH SCH (09:10)
[2017-01-20] MEDS: TRIFLUOPERAZINE HCL 10 MG TABLET PO SCH ×2 (09:15→21:03)
[2017-01-20] MEDS: HALOPERIDOL 10 MG TABLET PO SCH ×2 (09:20→21:03)
[2017-01-20] MEDS: BENZTROPINE MESYLATE 0.5 MG TABLET PO SCH ×2 (09:20→21:02)
[2017-01-20] MEDS: NITROFURANTOIN/NITROFURAN MAC 100 MG CAPSULE [MACROBID] PO SCH ×2 (09:21→21:03)
[2017-01-20] MEDS: OXYBUTYNIN CHLORIDE 5 MG TABLET PO SCH ×2 (09:24→21:02)
[2017-01-20] MEDS: AmLODIPine BESYLATE 5 MG TABLET PO SCH (09:24)
[2017-01-20] MEDS: MIRTAZAPINE 15 MG TABLET PO SCH (21:03)
[2017-01-20] MEDS: ZOLPIDEM TARTRATE 5 MG TABLET PO PRN (23:43)
[2017-01-21 04:55] VITALS: BP 140/68
[2017-01-21] MEDS: GENTAMICIN 120 MG/NACL ISO-OSM 100 ML IV SCH ×2 (05:29→20:28)
[2017-01-21] MEDS: OMEPRAZOLE 20 MG CAPSULE PO SCH (05:35)
[2017-01-21] MEDS: OxyCODONE HCL/ACETAMINOPHEN 5-325 MG TABLET PO PRN ×2 (05:35→13:17)
[2017-01-21] MEDS: ALBUTEROL SULFATE HFA 90 MCG/PUFF 8 GM INHALER IH PRN (06:22)
[2017-01-21 07:51] VITALS: BP 128/58
[2017-01-21 08:32] LABS: ANION GAP 3 mmol/L (8-16); CARBON DIOXIDE 30 mmol/L (22-29); CHLORIDE 103 mmol/L (98-107); GLOMERULAR FILTR. RATE CALC > 60 mL/min (>60); SODIUM SERUM 136 mmol/L (136-145); UREA NITROGEN, BLOOD 14 mg/dL (7-18)
[2017-01-21] MEDS: HALOPERIDOL 10 MG TABLET PO SCH ×2 (08:34→20:28)
[2017-01-21] MEDS: TRIFLUOPERAZINE HCL 10 MG TABLET PO SCH ×2 (08:34→20:28)
[2017-01-21] MEDS: NITROFURANTOIN/NITROFURAN MAC 100 MG CAPSULE [MACROBID] PO SCH ×2 (08:34→20:27)
[2017-01-21] MEDS: FLUTICASONE/VILANTEROL 200-25 MCG/INH INHALER [14] IH SCH (08:35)
[2017-01-21] MEDS: OXYBUTYNIN CHLORIDE 5 MG TABLET PO SCH ×2 (08:35→20:28)
[2017-01-21] MEDS: AmLODIPine BESYLATE 5 MG TABLET PO SCH (08:35)
[2017-01-21] MEDS: ASPIRIN 325 MG TABLET PO SCH (08:35)
[2017-01-21] MEDS: BENZTROPINE MESYLATE 0.5 MG TABLET PO SCH ×2 (08:35→20:28)
[2017-01-21] MEDS: NICOTINE 21 MG/24 HOUR PATCH TD SCH (08:36)
[2017-01-21 11:21] VITALS: BP 129/73
[2017-01-21 15:23] VITALS: BP 123/68
[2017-01-21 20:02] VITALS: BP 128/64
[2017-01-21] MEDS: MIRTAZAPINE 15 MG TABLET PO SCH (20:27)
[2017-01-21 23:58] VITALS: BP 129/65
[2017-01-22 04:57] VITALS: BP 129/63
[2017-01-22] MEDS: OMEPRAZOLE 20 MG CAPSULE PO SCH (05:28)
[2017-01-22] MEDS: GENTAMICIN 120 MG/NACL ISO-OSM 100 ML IV SCH (05:28)
[2017-01-22 07:57] VITALS: BP 131/67
[2017-01-22] MEDS: ASPIRIN 325 MG TABLET PO SCH (08:17)
[2017-01-22] MEDS: BENZTROPINE MESYLATE 0.5 MG TABLET PO SCH ×2 (08:17→20:01)
[2017-01-22] MEDS: TRIFLUOPERAZINE HCL 10 MG TABLET PO SCH ×2 (08:17→20:01)
[2017-01-22] MEDS: HALOPERIDOL 10 MG TABLET PO SCH ×2 (08:17→20:01)
[2017-01-22] MEDS: OXYBUTYNIN CHLORIDE 5 MG TABLET PO SCH ×2 (08:17→20:01)
[2017-01-22] MEDS: NITROFURANTOIN/NITROFURAN MAC 100 MG CAPSULE [MACROBID] PO SCH ×2 (08:17→20:01)
[2017-01-22] MEDS: AmLODIPine BESYLATE 5 MG TABLET PO SCH (08:18)
[2017-01-22] MEDS: FLUTICASONE/VILANTEROL 200-25 MCG/INH INHALER [14] IH SCH (08:18)
[2017-01-22] MEDS: NICOTINE 21 MG/24 HOUR PATCH TD SCH (08:18)
[2017-01-22 08:33] LABS: ANION GAP 9 mmol/L (8-16); CALCIUM, TOTAL 9.6 mg/dL (8.8-10.5); CARBON DIOXIDE 28 mmol/L (22-29); CHLORIDE 101 mmol/L (98-107); CREATININE 0.65 mg/dL (0.60-1.30); GLOMERULAR FILTR. RATE CALC > 60 mL/min (>60); POTASSIUM 4.5 mmol/L (3.5-5.1); SODIUM SERUM 138 mmol/L (136-145); UREA NITROGEN, BLOOD 15 mg/dL (7-18)
[2017-01-22] MEDS: OxyCODONE HCL/ACETAMINOPHEN 5-325 MG TABLET PO PRN ×2 (11:38→20:02)
[2017-01-22] MEDS: ALBUTEROL SULFATE HFA 90 MCG/PUFF 8 GM INHALER IH PRN (11:38)
[2017-01-22 11:58] VITALS: BP 141/70
[2017-01-22 16:07] VITALS: BP 112/58
[2017-01-22] MEDS: SODIUM CHLORIDE 0.9% 1,000 ML IV SCH (20:00)
[2017-01-22] MEDS: GENTAMICIN 100 MG/NACL ISO-OSM 50 ML IV SCH (20:01)
[2017-01-22] MEDS: MIRTAZAPINE 15 MG TABLET PO SCH (20:02)
[2017-01-22 20:07] VITALS: BP 122/67
[2017-01-22 23:46] VITALS: BP 130/58
[2017-01-23 04:36] VITALS: BP 129/60
[2017-01-23] MEDS: OMEPRAZOLE 20 MG CAPSULE PO SCH (06:30)
[2017-01-23 06:42] LABS: BASOPHILS % (AUTO) 1.7 % (0.0-2.0); EOSINOPHILS % (AUTO) 3.9 % (1.0-6.0); HEMOGLOBIN 13.4 g/dL (12.0-16.0); LYMPHOCYTES % (AUTO) 29.8 % (22.0-44.0); MEAN CORPUSCULAR HEMOGLOBIN 29.5 pg (26.0-34.0); MEAN CORPUSCULAR HGB CONC 33.4 G/dL (31.0-37.0); MEAN CORPUSCULAR VOLUME 88 fL (80-100); MONOCYTES # (AUTO) 0.6 K/uL (0.1-1.0); MONOCYTES % (AUTO) 8.3 % (2.0-9.0); NEUTROPHILS # (AUTO) 3.8 K/uL (1.8-7.7); NEUTROPHILS % (AUTO) 56.3 % (40.0-70.0); PLATELET COUNT (AUTO) 261 K/uL (150-450); RED BLOOD CELL COUNT(AUTO) 4.54 MIL/uL (4.00-5.20); WHITE BLOOD COUNT (AUTO) 6.7 K/uL (4.5-11.0)
[2017-01-23] MEDS ORDERED: RINGERS SOLUTION,LACTATED 1,000 ML IV SCH (06:45)
[2017-01-23 06:47] LABS: ANION GAP 7 mmol/L (8-16); CARBON DIOXIDE 28 mmol/L (22-29); CHLORIDE 104 mmol/L (98-107); CREATININE 0.76 mg/dL (0.60-1.30); GLOMERULAR FILTR. RATE CALC > 60 mL/min (>60); POTASSIUM 4.4 mmol/L (3.5-5.1); SODIUM SERUM 139 mmol/L (136-145); UREA NITROGEN, BLOOD 15 mg/dL (7-18)
[2017-01-23] MEDS ORDERED: RINGERS SOLUTION,LACTATED 1,000 ML IV ONE (06:51)
[2017-01-23] MEDS ORDERED: GELATIN SPONGE,ABSORBABLE 100 MM TP ONE (07:11)
[2017-01-23] MEDS ORDERED: SODIUM CHLORIDE 0.9% 0 ML ONE ×2 (07:12→09:35)
[2017-01-23] MEDS ORDERED: THROMBIN, BOVINE 20000 UNITS/VIAL POWDER TP ONE (07:12)
[2017-01-23] MEDS: GENTAMICIN 100 MG/NACL ISO-OSM 50 ML IV SCH ×2 (08:00→20:10)
[2017-01-23] MEDS ORDERED: SODIUM CL IRRIG SOLN BAG 3,000 ML IRRIG ONE (08:37)
[2017-01-23] MEDS ORDERED: HYDROmorphone 2 MG/ML SYRINGE IVP PRN (09:00)
[2017-01-23] MEDS: AmLODIPine BESYLATE 5 MG TABLET PO SCH (09:00)
[2017-01-23] MEDS ORDERED: BUPIVACAINE LIPOSOME/PF 1.3%-13.3MG/ML SUSPENSION 20 ML VIAL INJ ONE (09:00)
[2017-01-23] MEDS: BENZTROPINE MESYLATE 0.5 MG TABLET PO SCH ×2 (09:00→20:11)
[2017-01-23] MEDS: FLUTICASONE/VILANTEROL 200-25 MCG/INH INHALER [14] IH SCH (09:00)
[2017-01-23] MEDS ORDERED: FentaNYL CITRATE-PF 100 MCG/2 ML VIAL IVP PRN (09:00)
[2017-01-23] MEDS ORDERED: MEPERIDINE-PF 25 MG/ML SYRINGE IVP PRN (09:00)
[2017-01-23] MEDS: NICOTINE 21 MG/24 HOUR PATCH TD SCH (09:00)
[2017-01-23] MEDS: HALOPERIDOL 10 MG TABLET PO SCH ×2 (09:00→20:10)
[2017-01-23] MEDS: TRIFLUOPERAZINE HCL 10 MG TABLET PO SCH ×2 (09:00→20:10)
[2017-01-23] MEDS ORDERED: BUPIVACAINE HCL/PF 0.5% 30 ML VIAL ONE (09:46)
[2017-01-23] MEDS ORDERED: SUCCINYLCHOLINE CHLORIDE 20 MG/ML 10 ML VIAL IVP ONE (12:00)
[2017-01-23] MEDS ORDERED: DEXAMETHASONE SOD PHOS 4 MG/ML VIAL IVP ONE (12:00)
[2017-01-23] MEDS ORDERED: ALBUTEROL SULFATE HFA 90 MCG/PUFF 8 GM INHALER IH ONE (12:00)
[2017-01-23] MEDS ORDERED: LIDOCAINE HCL/PF 2% 5 ML VIAL INJ ONE (12:00)
[2017-01-23] MEDS ORDERED: PROPOFOL 1% 20 ML VIAL IVP ONE (12:00)
[2017-01-23] MEDS ORDERED: ROCURONIUM BROMIDE 10 MG/ML 5 ML VIAL IVP ONE (12:00)
[2017-01-23] MEDS ORDERED: GLYCOPYRROLATE 0.2 MG/ML VIAL IM ONE (12:00)
[2017-01-23] MEDS ORDERED: NEOSTIGMINE METHYLSULFATE 1 MG/ML 10 ML VIAL IVP ONE (12:00)
[2017-01-23] MEDS ORDERED: METOCLOPRAMIDE HCL 5 MG/ML 2 ML VIAL IVP ONE (12:00)
[2017-01-23] MEDS ORDERED: ONDANSETRON HCL 4 MG/2 ML VIAL IVP ONE (12:00)
[2017-01-23 13:00] VITALS: BP 126/68
[2017-01-23 13:30] VITALS: BP 132/65
[2017-01-23] MEDS: OxyCODONE HCL/ACETAMINOPHEN 5-325 MG TABLET PO PRN ×2 (14:35→19:34)
[2017-01-23 15:59] VITALS: BP 124/58
[2017-01-23] MEDS ORDERED: MORPHINE SULFATE 2 MG/ML SYRINGE IVP PRN (16:30)
[2017-01-23] MEDS: MORPHINE SULFATE 2 MG/ML SYRINGE IVP PRN ×2 (17:02→21:44)
[2017-01-23] MEDS: SODIUM CHLORIDE 0.9% 1,000 ML IV SCH (18:50)
[2017-01-23 19:39] VITALS: BP 137/68
[2017-01-23] MEDS: MIRTAZAPINE 15 MG TABLET PO SCH (20:10)
[2017-01-23 23:14] VITALS: BP 126/63
[2017-01-24] MEDS: OxyCODONE HCL/ACETAMINOPHEN 5-325 MG TABLET PO PRN ×3 (00:52→22:20)
[2017-01-24] MEDS: MORPHINE SULFATE 2 MG/ML SYRINGE IVP PRN ×4 (02:03→23:56)
[2017-01-24 04:59] VITALS: BP 122/60
[2017-01-24] MEDS: OMEPRAZOLE 20 MG CAPSULE PO SCH (05:39)
[2017-01-24 07:00] VITALS: BP 129/61
[2017-01-24] MEDS: OXYGEN THERAPY IH SCH ×2 (08:00→20:00)
[2017-01-24] MEDS: ALBUTEROL SULFATE HFA 90 MCG/PUFF 8 GM INHALER IH PRN (09:04)
[2017-01-24] MEDS: BENZTROPINE MESYLATE 0.5 MG TABLET PO SCH ×2 (09:04→19:55)
[2017-01-24] MEDS: GENTAMICIN 100 MG/NACL ISO-OSM 50 ML IV SCH (09:04)
[2017-01-24] MEDS: NICOTINE 21 MG/24 HOUR PATCH TD SCH (09:05)
[2017-01-24] MEDS: HALOPERIDOL 10 MG TABLET PO SCH ×2 (09:05→19:55)
[2017-01-24] MEDS: TRIFLUOPERAZINE HCL 10 MG TABLET PO SCH ×2 (09:05→19:55)
[2017-01-24] MEDS: FLUTICASONE/VILANTEROL 200-25 MCG/INH INHALER [14] IH SCH (09:06)
[2017-01-24] MEDS: AmLODIPine BESYLATE 5 MG TABLET PO SCH (09:06)
[2017-01-24] MEDS: SODIUM CHLORIDE 0.9% 1,000 ML IV SCH ×2 (09:09→22:02)
[2017-01-24 09:14] LABS: BASOPHILS % (AUTO) 0.5 % (0.0-2.0); EOSINOPHILS % (AUTO) 0.3 % (1.0-6.0); HEMATOCRIT 35.1 % (36-46); HEMOGLOBIN 11.8 g/dL (12.0-16.0); LYMPHOCYTES # (AUTO) 1.9 K/uL (1.0-4.8); LYMPHOCYTES % (AUTO) 13.5 % (22.0-44.0); MEAN CORPUSCULAR HEMOGLOBIN 29.8 pg (26.0-34.0); MEAN CORPUSCULAR HGB CONC 33.7 G/dL (31.0-37.0); MEAN CORPUSCULAR VOLUME 88 fL (80-100); MONOCYTES # (AUTO) 0.7 K/uL (0.1-1.0); MONOCYTES % (AUTO) 5.1 % (2.0-9.0); NEUTROPHILS # (AUTO) 11.3 K/uL (1.8-7.7); NEUTROPHILS % (AUTO) 80.6 % (40.0-70.0); PLATELET COUNT (AUTO) 276 K/uL (150-450); RED BLOOD CELL COUNT(AUTO) 3.97 MIL/uL (4.00-5.20); RED CELL DISTRIBUTION WIDTH 14.8 % (11.5-14.5)
[2017-01-24 09:20] LABS: CALCIUM, TOTAL 8.7 mg/dL (8.8-10.5); CREATININE 1.35 mg/dL (0.60-1.30); POTASSIUM 4.4 mmol/L (3.5-5.1)
[2017-01-24 11:06] VITALS: BP 141/66
[2017-01-24] MEDS ORDERED: KETAMINE HCL 50 MG/ML 10 ML VIAL IVP ONE (12:00)
[2017-01-24] MEDS ORDERED: MIDAZOLAM HCL 2 MG/2 ML VIAL IVP ONE (12:00)
[2017-01-24] MEDS ORDERED: FentaNYL CITRATE-PF 100 MCG/2 ML VIAL IVP ONE (12:00)
[2017-01-24] MEDS: HYDROmorphone 2 MG/ML SYRINGE IVP PRN ×2 (12:05→16:02)
[2017-01-24 15:38] VITALS: BP 133/70
[2017-01-24] MEDS: MIRTAZAPINE 15 MG TABLET PO SCH (19:55)
[2017-01-24 19:59] VITALS: BP 140/71
[2017-01-25] VITALS (7 sets, daily range): BP systolic 118–157; BP diastolic 56–86
[2017-01-25] MEDS: OxyCODONE HCL/ACETAMINOPHEN 5-325 MG TABLET PO PRN ×3 (02:24→16:21)
[2017-01-25] MEDS: MORPHINE SULFATE 2 MG/ML SYRINGE IVP PRN ×3 (04:02→20:12)
[2017-01-25] MEDS: OMEPRAZOLE 20 MG CAPSULE PO SCH ×2 (05:25→08:40)
[2017-01-25 06:35] LABS: CALCIUM, TOTAL 8.6 mg/dL (8.8-10.5); CREATININE 1.37 mg/dL (0.60-1.30); POTASSIUM 4.2 mmol/L (3.5-5.1)
[2017-01-25 07:00] LABS: BASOPHILS % (AUTO) 0.2 % (0.0-2.0); EOSINOPHILS % (AUTO) 0.2 % (1.0-6.0); HEMATOCRIT 36.5 % (36-46); HEMOGLOBIN 12.3 g/dL (12.0-16.0); LYMPHOCYTES # (AUTO) 1.4 K/uL (1.0-4.8); LYMPHOCYTES % (AUTO) 8.2 % (22.0-44.0); MEAN CORPUSCULAR HEMOGLOBIN 29.5 pg (26.0-34.0); MEAN CORPUSCULAR HGB CONC 33.6 G/dL (31.0-37.0); MEAN CORPUSCULAR VOLUME 88 fL (80-100); MONOCYTES % (AUTO) 5.7 % (2.0-9.0); NEUTROPHILS # (AUTO) 14.9 K/uL (1.8-7.7); NEUTROPHILS % (AUTO) 85.7 % (40.0-70.0); PLATELET COUNT (AUTO) 243 K/uL (150-450); RED BLOOD CELL COUNT(AUTO) 4.15 MIL/uL (4.00-5.20); RED CELL DISTRIBUTION WIDTH 14.8 % (11.5-14.5); WHITE BLOOD COUNT (AUTO) 17.4 K/uL (4.5-11.0)
[2017-01-25] MEDS ORDERED: GENTAMICIN 100 MG/NACL ISO-OSM 50 ML IV SCH (08:00)
[2017-01-25] MEDS: OXYGEN THERAPY IH SCH (08:00)
[2017-01-25] MEDS: AmLODIPine BESYLATE 5 MG TABLET PO SCH (08:41)
[2017-01-25] MEDS: HYDROmorphone 2 MG/ML SYRINGE IVP PRN ×2 (08:41→17:30)
[2017-01-25] MEDS: BENZTROPINE MESYLATE 0.5 MG TABLET PO SCH ×2 (08:41→20:05)
[2017-01-25] MEDS: NICOTINE 21 MG/24 HOUR PATCH TD SCH (08:42)
[2017-01-25] MEDS: TRIFLUOPERAZINE HCL 10 MG TABLET PO SCH ×2 (08:42→20:05)
[2017-01-25] MEDS: HALOPERIDOL 10 MG TABLET PO SCH ×2 (08:42→20:06)
[2017-01-25] MEDS: FLUTICASONE/VILANTEROL 200-25 MCG/INH INHALER [14] IH SCH (08:43)
[2017-01-25] MEDS: ALBUTEROL SULFATE HFA 90 MCG/PUFF 8 GM INHALER IH PRN (08:43)
[2017-01-25 08:59] LABS: RBC MORPHOLOGY COMMENT NORMAL RBC MORPH
[2017-01-25] MEDS: SODIUM CHLORIDE 0.9% 1,000 ML IV SCH (09:20)
[2017-01-25] MEDS: NITROFURANTOIN/NITROFURAN MAC 100 MG CAPSULE [MACROBID] PO SCH ×2 (13:06→20:05)
[2017-01-25] MEDS ORDERED: TIGECYCLINE 100 MG in SODIUM CHLORIDE 0.9% 100 ML IV ONE (17:00)
[2017-01-25] MEDS: MIRTAZAPINE 15 MG TABLET PO SCH (20:05)
[2017-01-25 20:54] LABS: ADD UA MICROSCOPIC YES; APPEARANCE,URINE CLOUDY (CLEAR); GLUCOSE, URINE (UA) NEGATIVE (NEGATIVE); KETONES,URINE 15 mg/dL (NEGATIVE); LEUKOCYTE ESTERASE ,URINE MODERATE (NEGATIVE); OCCULT BLOOD,URINE LARGE (NEGATIVE); PH,URINE 6.5 (5.0-8.0); PROTEIN,URINE POS 1+ (NEGATIVE)
[2017-01-25 20:59] LABS: RBC,URINE 26-50 /HPF (0-2); SQUAMOUS EPITHELIAL CELL,UR Moderate /LPF (None Seen)
[2017-01-26] MEDS: MORPHINE SULFATE 2 MG/ML SYRINGE IVP PRN ×5 (00:17→19:59)
[2017-01-26] MEDS: SODIUM CHLORIDE 0.9% 1,000 ML IV SCH ×2 (00:22→17:35)
[2017-01-26] MEDS: TIGECYCLINE 50 MG in SODIUM CHLORIDE 0.9% 50 ML IV SCH ×2 (04:21→17:34)
[2017-01-26 04:50] VITALS: BP 143/66
[2017-01-26 06:48] LABS: BASOPHILS # (AUTO) 0.03 K/uL (0.00-0.20); BASOPHILS % (AUTO) 0.2 % (0.0-2.0); EOSINOPHILS # (AUTO) 0.06 K/uL (0.00-0.70); EOSINOPHILS % (AUTO) 0.29 % (1.0-6.0); HEMATOCRIT 34.7 % (36-46); HEMOGLOBIN 11.6 g/dL (12.0-16.0); LYMPHOCYTES # (AUTO) 1.3 K/uL (1.0-4.8); LYMPHOCYTES % (AUTO) 6.8 % (22.0-44.0); MEAN CORPUSCULAR HEMOGLOBIN 29.7 pg (26.0-34.0); MEAN CORPUSCULAR HGB CONC 33.5 G/dL (31.0-37.0); MEAN CORPUSCULAR VOLUME 88 fL (80-100); MONOCYTES # (AUTO) 0.9 K/uL (0.1-1.0); MONOCYTES % (AUTO) 4.4 % (2.0-9.0); NEUTROPHILS # (AUTO) 17.4 K/uL (1.8-7.7); PLATELET COUNT (AUTO) 234 K/uL (150-450); RED BLOOD CELL COUNT(AUTO) 3.93 MIL/uL (4.00-5.20); RED CELL DISTRIBUTION WIDTH 14.4 % (11.5-14.5); WHITE BLOOD COUNT (AUTO) 19.7 K/uL (4.5-11.0)
[2017-01-26] MEDS: OxyCODONE HCL/ACETAMINOPHEN 5-325 MG TABLET PO PRN ×4 (06:52→22:11)
[2017-01-26 07:03] LABS: NEUTROPHILS % (AUTO) 88.4 % (40.0-70.0)
[2017-01-26 07:06] LABS: ALBUMIN 2.5 g/dL (3.4-5.0); BILIRUBIN,TOTAL 0.5 mg/dL (0.1-1.0); CREATININE 1.25 mg/dL (0.60-1.30); MAGNESIUM 1.7 mg/dL (1.80-2.40); TOTAL PROTEIN, SERUM 6.2 g/dL (6.4-8.2)
[2017-01-26 07:25] VITALS: BP 130/59
[2017-01-26 07:39] LABS: PROCALCITONIN (PCT) 0.58 ng/mL (<0.50)
[2017-01-26] MEDS: AmLODIPine BESYLATE 5 MG TABLET PO SCH (09:20)
[2017-01-26] MEDS: NITROFURANTOIN/NITROFURAN MAC 100 MG CAPSULE [MACROBID] PO SCH ×2 (09:20→19:58)
[2017-01-26] MEDS: BENZTROPINE MESYLATE 0.5 MG TABLET PO SCH ×2 (09:21→19:58)
[2017-01-26] MEDS: NICOTINE 21 MG/24 HOUR PATCH TD SCH (09:21)
[2017-01-26] MEDS: TRIFLUOPERAZINE HCL 10 MG TABLET PO SCH ×2 (09:21→19:58)
[2017-01-26] MEDS: FLUTICASONE/VILANTEROL 200-25 MCG/INH INHALER [14] IH SCH (09:21)
[2017-01-26] MEDS: HALOPERIDOL 10 MG TABLET PO SCH ×2 (09:21→19:58)
[2017-01-26] MEDS: ALBUTEROL SULFATE HFA 90 MCG/PUFF 8 GM INHALER IH PRN (09:22)
[2017-01-26 11:07] VITALS: BP 125/58
[2017-01-26 16:00] VITALS: BP 123/59
[2017-01-26] MEDS: MIRTAZAPINE 15 MG TABLET PO SCH (19:58)
[2017-01-26] MEDS: MAGNESIUM HYDROXIDE SUSPENSION 30 ML UDCUP PO PRN (19:58)
[2017-01-26] MEDS: OXYGEN THERAPY IH SCH (20:00)
[2017-01-26 20:36] VITALS: BP 115/66
[2017-01-27 00:43] VITALS: BP 118/59
[2017-01-27] MEDS: MORPHINE SULFATE 2 MG/ML SYRINGE IVP PRN ×6 (00:53→21:58)
[2017-01-27] MEDS: OxyCODONE HCL/ACETAMINOPHEN 5-325 MG TABLET PO PRN ×4 (03:52→19:23)
[2017-01-27 04:21] VITALS: BP 137/66
[2017-01-27] MEDS: TIGECYCLINE 50 MG in SODIUM CHLORIDE 0.9% 50 ML IV SCH ×2 (04:26→17:14)
[2017-01-27] MEDS: OMEPRAZOLE 20 MG CAPSULE PO SCH (05:01)
[2017-01-27] MEDS: SODIUM CHLORIDE 0.9% 1,000 ML IV SCH ×2 (05:01→08:11)
[2017-01-27 07:25] VITALS: BP 135/66
[2017-01-27 07:27] LABS: BASOPHILS % (AUTO) 0.3 % (0.0-2.0); HEMOGLOBIN 11.6 g/dL (12.0-16.0); LYMPHOCYTES # (AUTO) 1.2 K/uL (1.0-4.8); LYMPHOCYTES % (AUTO) 10.3 % (22.0-44.0); MEAN CORPUSCULAR HEMOGLOBIN 29.7 pg (26.0-34.0); MEAN CORPUSCULAR VOLUME 88 fL (80-100); MONOCYTES # (AUTO) 0.8 K/uL (0.1-1.0); MONOCYTES % (AUTO) 6.7 % (2.0-9.0); NEUTROPHILS # (AUTO) 9.4 K/uL (1.8-7.7); NEUTROPHILS % (AUTO) 80.7 % (40.0-70.0); PLATELET COUNT (AUTO) 284 K/uL (150-450); RED BLOOD CELL COUNT(AUTO) 3.89 MIL/uL (4.00-5.20); RED CELL DISTRIBUTION WIDTH 14.5 % (11.5-14.5); WHITE BLOOD COUNT (AUTO) 11.7 K/uL (4.5-11.0)
[2017-01-27] MEDS: OXYGEN THERAPY IH SCH ×2 (08:00→20:00)
[2017-01-27] MEDS: TRIFLUOPERAZINE HCL 10 MG TABLET PO SCH ×2 (08:05→19:58)
[2017-01-27] MEDS: BENZTROPINE MESYLATE 0.5 MG TABLET PO SCH ×2 (08:05→19:58)
[2017-01-27] MEDS: AmLODIPine BESYLATE 5 MG TABLET PO SCH (08:05)
[2017-01-27] MEDS: HALOPERIDOL 10 MG TABLET PO SCH ×2 (08:05→19:58)
[2017-01-27] MEDS: NITROFURANTOIN/NITROFURAN MAC 100 MG CAPSULE [MACROBID] PO SCH ×2 (08:05→19:58)
[2017-01-27] MEDS: NICOTINE 21 MG/24 HOUR PATCH TD SCH (08:09)
[2017-01-27] MEDS: ALBUTEROL SULFATE HFA 90 MCG/PUFF 8 GM INHALER IH PRN (08:10)
[2017-01-27] MEDS: FLUTICASONE/VILANTEROL 200-25 MCG/INH INHALER [14] IH SCH (08:11)
[2017-01-27 11:10] VITALS: BP 119/58
[2017-01-27 15:26] VITALS: BP 104/53
[2017-01-27] MEDS: MAGNESIUM OXIDE 400 MG TABLET PO PRN ×2 (17:59→22:00)
[2017-01-27] MEDS: MAGNESIUM HYDROXIDE SUSPENSION 30 ML UDCUP PO PRN (18:50)
[2017-01-27 19:47] VITALS: BP 122/61
[2017-01-27] MEDS: MIRTAZAPINE 15 MG TABLET PO SCH (19:58)
[2017-01-28] VITALS (7 sets, daily range): BP systolic 109–154; BP diastolic 58–78
[2017-01-28] MEDS: OxyCODONE HCL/ACETAMINOPHEN 5-325 MG TABLET PO PRN ×5 (00:42→20:17)
[2017-01-28] MEDS: MORPHINE SULFATE 2 MG/ML SYRINGE IVP PRN ×5 (02:08→21:50)
[2017-01-28] MEDS: TIGECYCLINE 50 MG in SODIUM CHLORIDE 0.9% 50 ML IV SCH (06:14)
[2017-01-28] MEDS: OMEPRAZOLE 20 MG CAPSULE PO SCH (06:14)
[2017-01-28] MEDS: MAGNESIUM OXIDE 400 MG TABLET PO PRN (06:19)
[2017-01-28] MEDS: OXYGEN THERAPY IH SCH (08:00)
[2017-01-28] MEDS: HALOPERIDOL 10 MG TABLET PO SCH ×2 (08:09→20:18)
[2017-01-28] MEDS: AmLODIPine BESYLATE 5 MG TABLET PO SCH (08:09)
[2017-01-28] MEDS: TRIFLUOPERAZINE HCL 10 MG TABLET PO SCH ×2 (08:09→20:18)
[2017-01-28] MEDS: BENZTROPINE MESYLATE 0.5 MG TABLET PO SCH ×2 (08:09→20:18)
[2017-01-28] MEDS: NITROFURANTOIN/NITROFURAN MAC 100 MG CAPSULE [MACROBID] PO SCH ×2 (08:09→20:18)
[2017-01-28] MEDS: DOXYCYCLINE 100 MG CAPSULE PO SCH ×2 (08:09→20:18)
[2017-01-28] MEDS: FLUTICASONE/VILANTEROL 200-25 MCG/INH INHALER [14] IH SCH (08:14)
[2017-01-28] MEDS: ALBUTEROL SULFATE HFA 90 MCG/PUFF 8 GM INHALER IH PRN (08:15)
[2017-01-28] MEDS: NICOTINE 21 MG/24 HOUR PATCH TD SCH (09:00)
[2017-01-28] MEDS: SODIUM CHLORIDE 0.9% 1,000 ML IV SCH (10:50)
[2017-01-28 11:59] LABS: HEMATOCRIT 38.3 % (36-46); HEMOGLOBIN 12.9 g/dL (12.0-16.0); LYMPHOCYTES # (AUTO) 2.4 K/uL (1.0-4.8); LYMPHOCYTES % (AUTO) 20.5 % (22.0-44.0); MEAN CORPUSCULAR HEMOGLOBIN 29.6 pg (26.0-34.0); MEAN CORPUSCULAR HGB CONC 33.6 G/dL (31.0-37.0); MEAN CORPUSCULAR VOLUME 88 fL (80-100); MONOCYTES # (AUTO) 0.9 K/uL (0.1-1.0); MONOCYTES % (AUTO) 8.1 % (2.0-9.0); NEUTROPHILS # (AUTO) 7.8 K/uL (1.8-7.7); NEUTROPHILS % (AUTO) 67.4 % (40.0-70.0); PLATELET COUNT (AUTO) 409 K/uL (150-450); RED BLOOD CELL COUNT(AUTO) 4.36 MIL/uL (4.00-5.20); RED CELL DISTRIBUTION WIDTH 15.1 % (11.5-14.5); WHITE BLOOD COUNT (AUTO) 11.6 K/uL (4.5-11.0)
[2017-01-28] MEDS: MIRTAZAPINE 15 MG TABLET PO SCH (20:18)
[2017-01-29] MEDS: OxyCODONE HCL/ACETAMINOPHEN 5-325 MG TABLET PO PRN ×2 (02:03→19:56)
[2017-01-29 04:55] VITALS: BP 128/67
[2017-01-29] MEDS: MORPHINE SULFATE 2 MG/ML SYRINGE IVP PRN ×4 (05:11→22:08)
[2017-01-29] MEDS: OMEPRAZOLE 20 MG CAPSULE PO SCH (06:44)
[2017-01-29 07:35] VITALS: BP 152/70
[2017-01-29] MEDS: SODIUM CHLORIDE 0.9% 1,000 ML IV SCH (08:12)
[2017-01-29] MEDS: FLUTICASONE/VILANTEROL 200-25 MCG/INH INHALER [14] IH SCH (09:00)
[2017-01-29] MEDS: HALOPERIDOL 10 MG TABLET PO SCH ×2 (09:00→19:56)
[2017-01-29] MEDS: NITROFURANTOIN/NITROFURAN MAC 100 MG CAPSULE [MACROBID] PO SCH ×2 (09:33→19:56)
[2017-01-29] MEDS: BENZTROPINE MESYLATE 0.5 MG TABLET PO SCH ×2 (09:33→19:56)
[2017-01-29] MEDS: DOXYCYCLINE 100 MG CAPSULE PO SCH ×2 (09:33→19:56)
[2017-01-29] MEDS: NICOTINE 21 MG/24 HOUR PATCH TD SCH (09:33)
[2017-01-29] MEDS: TRIFLUOPERAZINE HCL 10 MG TABLET PO SCH ×2 (09:33→19:56)
[2017-01-29] MEDS: AmLODIPine BESYLATE 5 MG TABLET PO SCH (09:33)
[2017-01-29 10:59] VITALS: BP 130/64
[2017-01-29 15:48] VITALS: BP 109/53
[2017-01-29 19:26] VITALS: BP 129/66
[2017-01-29] MEDS: MIRTAZAPINE 15 MG TABLET PO SCH (19:56)
[2017-01-30 01:28] VITALS: BP 147/72
[2017-01-30] MEDS: OxyCODONE HCL/ACETAMINOPHEN 5-325 MG TABLET PO PRN ×4 (01:30→16:02)
[2017-01-30 03:36] VITALS: BP 135/75
[2017-01-30] MEDS: MORPHINE SULFATE 2 MG/ML SYRINGE IVP PRN ×3 (03:48→13:53)
[2017-01-30 06:08] LABS: BASOPHILS % (AUTO) 0.8 % (0.0-2.0); EOSINOPHILS % (AUTO) 3.7 % (1.0-6.0); HEMATOCRIT 38.3 % (36-46); HEMOGLOBIN 12.8 g/dL (12.0-16.0); LYMPHOCYTES # (AUTO) 2.2 K/uL (1.0-4.8); LYMPHOCYTES % (AUTO) 22.5 % (22.0-44.0); MEAN CORPUSCULAR HEMOGLOBIN 29.5 pg (26.0-34.0); MEAN CORPUSCULAR HGB CONC 33.6 G/dL (31.0-37.0); MEAN CORPUSCULAR VOLUME 88 fL (80-100); MONOCYTES % (AUTO) 9.7 % (2.0-9.0); NEUTROPHILS # (AUTO) 6.2 K/uL (1.8-7.7); NEUTROPHILS % (AUTO) 63.3 % (40.0-70.0); PLATELET COUNT (AUTO) 411 K/uL (150-450); RED BLOOD CELL COUNT(AUTO) 4.35 MIL/uL (4.00-5.20); RED CELL DISTRIBUTION WIDTH 14.7 % (11.5-14.5); WHITE BLOOD COUNT (AUTO) 9.8 K/uL (4.5-11.0)
[2017-01-30] MEDS: OMEPRAZOLE 20 MG CAPSULE PO SCH (06:38)
[2017-01-30 06:52] LABS: CALCIUM, TOTAL 9.1 mg/dL (8.8-10.5); CREATININE 1.44 mg/dL (0.60-1.30); POTASSIUM 4.4 mmol/L (3.5-5.1)
[2017-01-30] MEDS: OXYGEN THERAPY IH SCH (07:35)
[2017-01-30] MEDS: FLUTICASONE/VILANTEROL 200-25 MCG/INH INHALER [14] IH SCH (07:38)
[2017-01-30] MEDS: ALBUTEROL SULFATE HFA 90 MCG/PUFF 8 GM INHALER IH PRN (07:38)
[2017-01-30] MEDS: BENZTROPINE MESYLATE 0.5 MG TABLET PO SCH (07:47)
[2017-01-30] MEDS: DOXYCYCLINE 100 MG CAPSULE PO SCH (07:47)
[2017-01-30 07:48] VITALS: BP 150/57
[2017-01-30] MEDS: AmLODIPine BESYLATE 5 MG TABLET PO SCH (07:48)
[2017-01-30] MEDS: TRIFLUOPERAZINE HCL 10 MG TABLET PO SCH (07:48)
[2017-01-30] MEDS: NITROFURANTOIN/NITROFURAN MAC 100 MG CAPSULE [MACROBID] PO SCH (07:48)
[2017-01-30] MEDS: HALOPERIDOL 10 MG TABLET PO SCH (07:48)
[2017-01-30] MEDS: NICOTINE 21 MG/24 HOUR PATCH TD SCH (07:50)
[2017-01-30] MEDS: SODIUM CHLORIDE 0.9% 1,000 ML IV SCH (08:12)
[2017-01-30 12:03] VITALS: BP 120/59
[2017-01-30 15:39] VITALS: BP 110/60
== END 2017-01-30 16:50 | disposition home or self-care (01) | DRG 853 ==
LOC: 6N 13:54
PROVIDERS: ADMIT Internal Medicine; ATTEND Internal Medicine
PROC: 0TT14ZZ Resection of Left Kidney, Percutaneous Endoscopic Approach (ICD-10-PCS; principal; 2017-01-23 07:30)
DX: A41.9 Sepsis, unspecified organism (principal); J18.9 Pneumonia, unspecified organism; N17.9 Acute kidney failure, unspecified; C64.2 Malignant neoplasm of left kidney, except renal pelvis; F20.0 Paranoid schizophrenia; N39.0 Urinary tract infection, site not specified; B96.20 Unspecified Escherichia coli [E. coli] as the cause of diseases classified elsewhere; F15.90 Other stimulant use, unspecified, uncomplicated; J44.9 Chronic obstructive pulmonary disease, unspecified; F17.210 Nicotine dependence, cigarettes, uncomplicated; Z16.24 Resistance to multiple antibiotics; G89.29 Other chronic pain; H91.90 Unspecified hearing loss, unspecified ear; I10 Essential (primary) hypertension; K21.9 Gastro-esophageal reflux disease without esophagitis; K66.0 Peritoneal adhesions (postprocedural) (postinfection); Z87.440 Personal history of urinary (tract) infections; Z88.0 Allergy status to penicillin
CPT/HCPCS: 71020; 74010; 74178; 76770; 76775; 83735; 84145; 86850; 86900; 86901; 86920; 87040; 87086; 88307; 88313; 88342; 93005; 97162; C9290; G0238; J0330; J1100; J1170; J1580; J2250; J2270; J2405; J2704; J2765; J3010; J3243; J3490; J3535; J7030; J7050; J7120

== ENCOUNTER 2017-02-01 04:14 | Emergency (ER) | payer MEDICARE, OTHER ==
[~2017-02-01] VITALS: Ht 160 cm; Wt 66.0 kg
[2017-02-01] MEDS ORDERED: DOXY100C PO (04:27)
[2017-02-01] MEDS ORDERED: OMEP20 PO (04:27)
[2017-02-01] MEDS ORDERED: MIRT15 PO (04:27)
[2017-02-01] MEDS ORDERED: AMLO-511 PO (04:27)
[2017-02-01] MEDS ORDERED: NITR25OR3 PO (04:27)
[2017-02-01] MEDS ORDERED: NITR50CA PO (04:27)
[2017-02-01] MEDS ORDERED: FLUT220HFA IH (04:27)
[2017-02-01 06:12] LABS: BASOPHILS # (AUTO) 0.15 K/uL (0.00-0.20); BASOPHILS % (AUTO) 0.9 % (0.0-2.0); EOSINOPHILS # (AUTO) 0.28 K/uL (0.00-0.70); EOSINOPHILS % (AUTO) 1.68 % (1.0-6.0); HEMATOCRIT 38.5 % (36-46); HEMOGLOBIN 12.7 g/dL (12.0-16.0); LYMPHOCYTES # (AUTO) 2.9 K/uL (1.0-4.8); LYMPHOCYTES % (AUTO) 17.3 % (22.0-44.0); MEAN CORPUSCULAR HEMOGLOBIN 28.9 pg (26.0-34.0); MEAN CORPUSCULAR VOLUME 88 fL (80-100); MONOCYTES # (AUTO) 0.3 K/uL (0.1-1.0); MONOCYTES % (AUTO) 1.8 % (2.0-9.0); NEUTROPHILS # (AUTO) 13.2 K/uL (1.8-7.7); NEUTROPHILS % (AUTO) 78.4 % (40.0-70.0); RED CELL DISTRIBUTION WIDTH 14.8 % (11.5-14.5); WHITE BLOOD COUNT (AUTO) 16.9 K/uL (4.5-11.0)
[2017-02-01 06:22] LABS: CALCIUM, TOTAL 9.3 mg/dL (8.8-10.5); CREATININE 1.44 mg/dL (0.60-1.30); POTASSIUM 4.8 mmol/L (3.5-5.1)
[2017-02-01] MEDS ORDERED: SODIUM CHLORIDE 0.9% 1,000 ML IV ONE (06:45)
[2017-02-01] MEDS ORDERED: LEVOFLOXACIN 750 MG/D5% WATER 150 ML IV ONE (07:00)
[2017-02-01 07:18] LABS: PLATELET COUNT (AUTO) 131 K/uL (150-450)
[2017-02-01 07:19] LABS: RBC MORPHOLOGY COMMENT NORMAL RBC MORPH
[2017-02-01 09:45] VITALS: BP 130/76
== END 2017-02-01 09:47 | disposition home or self-care (01) ==
LOC: EMS 04:16
DX: T81.30XA Disruption of wound, unspecified, initial encounter (principal); J44.9 Chronic obstructive pulmonary disease, unspecified; E78.00 Pure hypercholesterolemia, unspecified; I10 Essential (primary) hypertension; F17.210 Nicotine dependence, cigarettes, uncomplicated; Z88.0 Allergy status to penicillin
CPT/HCPCS: 36415; 80048; 85025; 87070; 87077; 87205; 96361; 96374; 99284; J1956; J7030

== ENCOUNTER 2017-02-02 12:54 | Inpatient (IN) | payer MEDICARE, OTHER ==
[~2017-02-02] VITALS: Ht 162.6 cm; Wt 61.0 kg
[~2017-02-02 12:54] MED LIST changes: +AMLO-511 PO; -DIVA500T35 PO; +DOXY100C PO; +FLUT220HFA IH; +FentaNYL CITRATE-PF 100 MCG/2 ML VIAL IVP ONE; +LIDOCAINE HCL/PF 2% 5 ML VIAL INJ ONE; +MIDAZOLAM HCL 2 MG/2 ML VIAL IVP ONE; +MIRT15 PO; +NITR25OR3 PO; +NITR50CA PO; +OMEP20 PO; +PROPOFOL 1% 20 ML VIAL IVP ONE; +ROCURONIUM BROMIDE 10 MG/ML 5 ML VIAL IVP ONE; +SUCCINYLCHOLINE CHLORIDE 20 MG/ML 10 ML VIAL IVP ONE
[2017-02-02] MEDS ORDERED: SODIUM CHLORIDE 0.9% 1,000 ML IV ONE ×3 (13:00→14:30)
[2017-02-02] MEDS ORDERED: MORPHINE SULFATE 2 MG/ML SYRINGE IVP ONE (13:15)
[2017-02-02] MEDS ORDERED: MORPHINE SULFATE 4 MG/ML SYRINGE IVP ONE ×3 (13:15→13:45)
[2017-02-02] MEDS ORDERED: ONDANSETRON HCL 4 MG/2 ML VIAL IVP ONE (13:15)
[2017-02-02 13:23] LABS: BASOPHILS % (AUTO) 0.2 % (0.0-2.0); HEMATOCRIT 35.8 % (36-46); HEMOGLOBIN 12.1 g/dL (12.0-16.0); LYMPHOCYTES # (AUTO) 1.1 K/uL (1.0-4.8); LYMPHOCYTES % (AUTO) 5.8 % (22.0-44.0); MEAN CORPUSCULAR HEMOGLOBIN 29.8 pg (26.0-34.0); MEAN CORPUSCULAR HGB CONC 33.6 G/dL (31.0-37.0); MEAN CORPUSCULAR VOLUME 89 fL (80-100); MONOCYTES % (AUTO) 5.2 % (2.0-9.0); NEUTROPHILS # (AUTO) 16.1 K/uL (1.8-7.7); NEUTROPHILS % (AUTO) 87.8 % (40.0-70.0); PLATELET COUNT (AUTO) 495 K/uL (150-450); RED BLOOD CELL COUNT(AUTO) 4.04 MIL/uL (4.00-5.20); RED CELL DISTRIBUTION WIDTH 14.9 % (11.5-14.5); WHITE BLOOD COUNT (AUTO) 18.4 K/uL (4.5-11.0)
[2017-02-02] MEDS ORDERED: CeFAZolin 1 GM/DEXTROSE 50 ML IV ONE (13:30)
[2017-02-02 13:35] LABS: CALCIUM, TOTAL 9.2 mg/dL (8.8-10.5); CREATININE 1.29 mg/dL (0.60-1.30); POTASSIUM 4.4 mmol/L (3.5-5.1)
[2017-02-02 13:41] LABS: BILIRUBIN,TOTAL 0.3 mg/dL (0.1-1.0); TOTAL PROTEIN, SERUM 6.7 g/dL (6.4-8.2)
[2017-02-02 13:49] LABS: APPEARANCE,URINE CLEAR (CLEAR); GLUCOSE, URINE (UA) NEGATIVE (NEGATIVE); KETONES,URINE TRACE mg/dL (NEGATIVE); LEUKOCYTE ESTERASE ,URINE SMALL (NEGATIVE); OCCULT BLOOD,URINE NEGATIVE (NEGATIVE); PH,URINE 5.5 (5.0-8.0); PROTEIN,URINE TRACE (NEGATIVE)
[2017-02-02 13:51] LABS: ADD UA MICROSCOPIC YES
[2017-02-02 13:58] LABS: RBC,URINE 0-2 /HPF (0-2)
[2017-02-02 13:59] LABS: SQUAMOUS EPITHELIAL CELL,UR Few /LPF (None Seen)
[2017-02-02 14:00] LABS: PROTHROMBIN TIME 10.6 SEC (9.4-11.6)
[2017-02-02] MEDS ORDERED: RINGERS SOLUTION,LACTATED 1,000 ML IV ONE ×2 (14:05→14:16)
[2017-02-02] MEDS ORDERED: HYDROmorphone 2 MG/ML SYRINGE IVP ONE (14:15)
[2017-02-02] MEDS ORDERED: ACETAMINOPHEN 325 MG TABLET PO PRN (14:30)
[2017-02-02] MEDS ORDERED: ONDANSETRON HCL 4 MG/2 ML VIAL IVP PRN (14:30)
[2017-02-02] MEDS ORDERED: 0.9% SODIUM CHLORIDE 10 ML SYRINGE IVP PRN (14:30)
[2017-02-02] MEDS ORDERED: CefoTEtan DISOD 2 GM/DEXTROSE 50 ML IV ONE (14:59)
[2017-02-02] MEDS ORDERED: BACITRACIN 50,000 UNITS/VIAL ONE (15:11)
[2017-02-02] MEDS ORDERED: SODIUM CHLORIDE 0.9% 10 ML ONE (15:12)
[2017-02-02] MEDS ORDERED: MEPERIDINE-PF 25 MG/ML SYRINGE IVP PRN (15:45)
[2017-02-02] MEDS ORDERED: HYDROmorphone 2 MG/ML SYRINGE IVP PRN (15:45)
[2017-02-02] MEDS ORDERED: FentaNYL CITRATE-PF 100 MCG/2 ML VIAL IVP PRN (15:45)
[2017-02-02] MEDS ORDERED: MEPERIDINE-PF 25 MG/ML SYRINGE ONE (16:39)
[2017-02-02 17:35] VITALS: BP 145/69
[2017-02-02] MEDS: MORPHINE SULFATE 4 MG/ML SYRINGE IVP PRN ×2 (18:23→23:47)
[2017-02-02 19:47] VITALS: BP 136/60
[2017-02-02] MEDS: OXYGEN THERAPY IH SCH (20:05)
[2017-02-02 23:55] VITALS: BP 117/47
[2017-02-03] MEDS: MORPHINE SULFATE 4 MG/ML SYRINGE IVP PRN ×5 (04:19→21:01)
[2017-02-03] MEDS: CefoTEtan DISOD 2 GM/DEXTROSE 50 ML IV SCH ×2 (04:19→16:16)
[2017-02-03 05:13] VITALS: BP 110/53
[2017-02-03 06:08] LABS: BASOPHILS % (AUTO) 0.2 % (0.0-2.0); EOSINOPHILS % (AUTO) 0.3 % (1.0-6.0); HEMATOCRIT 32.6 % (36-46); HEMOGLOBIN 10.9 g/dL (12.0-16.0); LYMPHOCYTES # (AUTO) 1.3 K/uL (1.0-4.8); LYMPHOCYTES % (AUTO) 5.5 % (22.0-44.0); MEAN CORPUSCULAR HEMOGLOBIN 29.6 pg (26.0-34.0); MEAN CORPUSCULAR HGB CONC 33.3 G/dL (31.0-37.0); MEAN CORPUSCULAR VOLUME 89 fL (80-100); MONOCYTES # (AUTO) 0.8 K/uL (0.1-1.0); MONOCYTES % (AUTO) 3.2 % (2.0-9.0); NEUTROPHILS # (AUTO) 21.7 K/uL (1.8-7.7); PLATELET COUNT (AUTO) 447 K/uL (150-450); RED BLOOD CELL COUNT(AUTO) 3.67 MIL/uL (4.00-5.20); RED CELL DISTRIBUTION WIDTH 15.1 % (11.5-14.5); WHITE BLOOD COUNT (AUTO) 23.9 K/uL (4.5-11.0)
[2017-02-03 06:29] LABS: ALBUMIN 1.8 g/dL (3.4-5.0); BILIRUBIN,TOTAL 0.3 mg/dL (0.1-1.0); CREATININE 1.15 mg/dL (0.60-1.30); MAGNESIUM 1.5 mg/dL (1.80-2.40); POTASSIUM 4.6 mmol/L (3.5-5.1); TOTAL PROTEIN, SERUM 4.9 g/dL (6.4-8.2)
[2017-02-03 07:00] LABS: NEUTROPHILS % (AUTO) 90.8 % (40.0-70.0)
[2017-02-03 07:01] LABS: RBC MORPHOLOGY COMMENT NORMAL RBC MORPH
[2017-02-03 07:46] VITALS: BP 100/53
[2017-02-03] MEDS ORDERED: SODIUM CHLORIDE 0.9% IRRIG BTL 1,000 ML IRRIG ONE (08:58)
[2017-02-03] MEDS ORDERED: MAGNESIUM SULFATE 2 GM in DEXTROSE 5%-WATER 50 ML IV PRN (09:00)
[2017-02-03] MEDS ORDERED: MAGNESIUM SULFATE 4 GM/WATER 100 ML IV PRN (09:00)
[2017-02-03] MEDS: AmLODIPine BESYLATE 5 MG TABLET PO SCH (09:00)
[2017-02-03] MEDS: BENZTROPINE MESYLATE 0.5 MG TABLET PO SCH ×2 (09:52→19:48)
[2017-02-03] MEDS: OXYBUTYNIN CHLORIDE 5 MG TABLET PO SCH ×2 (09:52→19:48)
[2017-02-03] MEDS: FAMOTIDINE 20 MG TABLET PO SCH ×2 (09:53→19:48)
[2017-02-03] MEDS: MAGNESIUM OXIDE 400 MG TABLET PO PRN ×2 (09:53→12:28)
[2017-02-03] MEDS: HALOPERIDOL 10 MG TABLET PO SCH ×2 (09:53→19:48)
[2017-02-03] MEDS: POTASSIUM CHL 20 MEQ/D5LR 1,000 ML IV SCH ×2 (09:53→21:03)
[2017-02-03] MEDS: FLUTICASONE PROPIONATE HFA 220 MCG/PUFF 12 GM INHR IH SCH (09:53)
[2017-02-03] MEDS: OXYGEN THERAPY IH SCH ×2 (09:54→21:02)
[2017-02-03 11:44] VITALS: BP 104/56
[2017-02-03 19:31] VITALS: BP 97/48
[2017-02-03] MEDS: MIRTAZAPINE 15 MG TABLET PO SCH (19:48)
[2017-02-03 23:20] VITALS: BP 117/44
[2017-02-04] MEDS: MORPHINE SULFATE 4 MG/ML SYRINGE IVP PRN ×5 (00:33→21:47)
[2017-02-04] MEDS: HYDROCODONE/ACETAMINOPHEN 5-325 MG TABLET PO PRN ×3 (02:48→18:28)
[2017-02-04] MEDS: CefoTEtan DISOD 2 GM/DEXTROSE 50 ML IV SCH ×2 (04:16→16:16)
[2017-02-04 05:09] VITALS: BP 130/52
[2017-02-04 06:04] LABS: BASOPHILS % (AUTO) 0.1 % (0.0-2.0); EOSINOPHILS % (AUTO) 2.2 % (1.0-6.0); LYMPHOCYTES # (AUTO) 2.3 K/uL (1.0-4.8); LYMPHOCYTES % (AUTO) 11.8 % (22.0-44.0); MEAN CORPUSCULAR HEMOGLOBIN 29.5 pg (26.0-34.0); MEAN CORPUSCULAR HGB CONC 33.3 G/dL (31.0-37.0); MEAN CORPUSCULAR VOLUME 89 fL (80-100); MONOCYTES # (AUTO) 1.1 K/uL (0.1-1.0); MONOCYTES % (AUTO) 5.7 % (2.0-9.0); NEUTROPHILS # (AUTO) 15.4 K/uL (1.8-7.7); NEUTROPHILS % (AUTO) 80.2 % (40.0-70.0); PLATELET COUNT (AUTO) 397 K/uL (150-450); RED BLOOD CELL COUNT(AUTO) 3.38 MIL/uL (4.00-5.20); WHITE BLOOD COUNT (AUTO) 19.3 K/uL (4.5-11.0)
[2017-02-04] MEDS: POTASSIUM CHL 20 MEQ/D5LR 1,000 ML IV SCH (06:06)
[2017-02-04 06:09] LABS: CALCIUM, TOTAL 8.5 mg/dL (8.8-10.5); CREATININE 1.34 mg/dL (0.60-1.30); MAGNESIUM 1.8 mg/dL (1.80-2.40); POTASSIUM 4.7 mmol/L (3.5-5.1)
[2017-02-04 07:42] VITALS: BP 120/48
[2017-02-04] MEDS: FLUTICASONE PROPIONATE HFA 220 MCG/PUFF 12 GM INHR IH SCH (07:50)
[2017-02-04] MEDS: FAMOTIDINE 20 MG TABLET PO SCH ×2 (07:51→20:29)
[2017-02-04] MEDS: HALOPERIDOL 10 MG TABLET PO SCH ×2 (07:51→20:30)
[2017-02-04] MEDS: OXYBUTYNIN CHLORIDE 5 MG TABLET PO SCH ×2 (07:51→20:30)
[2017-02-04] MEDS: BENZTROPINE MESYLATE 0.5 MG TABLET PO SCH ×2 (07:51→20:29)
[2017-02-04] MEDS: OXYGEN THERAPY IH SCH (07:56)
[2017-02-04] MEDS: MULTIVITAMINS WITH MINERALS, THERAPEUTIC TABLET PO SCH (08:00)
[2017-02-04] MEDS ORDERED: VANCOMYCIN HCL 1 GM/D5% WATER 200 ML IV ONE ×2 (10:00)
[2017-02-04 11:34] VITALS: BP 132/58
[2017-02-04] MEDS: AmLODIPine BESYLATE 5 MG TABLET PO SCH (11:56)
[2017-02-04] MEDS ORDERED: SODIUM CHLORIDE 0.9% 500 ML IV ONE (13:44)
[2017-02-04 15:36] VITALS: BP 121/59
[2017-02-04] MEDS: MIRTAZAPINE 15 MG TABLET PO SCH (20:29)
[2017-02-04 20:31] VITALS: BP 141/61
[2017-02-04 23:05] VITALS: BP 136/60
[2017-02-05] MEDS: POTASSIUM CHL 20 MEQ/D5LR 1,000 ML IV SCH (00:18)
[2017-02-05] MEDS: HYDROCODONE/ACETAMINOPHEN 5-325 MG TABLET PO PRN ×4 (01:52→20:27)
[2017-02-05 03:46] VITALS: BP 131/49
[2017-02-05] MEDS: CefoTEtan DISOD 2 GM/DEXTROSE 50 ML IV SCH ×2 (05:21→16:26)
[2017-02-05] MEDS: MORPHINE SULFATE 4 MG/ML SYRINGE IVP PRN ×5 (05:21→23:33)
[2017-02-05 06:30] LABS: CALCIUM, TOTAL 8.5 mg/dL (8.8-10.5); CREATININE 1.02 mg/dL (0.60-1.30); POTASSIUM 4.4 mmol/L (3.5-5.1)
[2017-02-05 07:48] VITALS: BP 132/54
[2017-02-05] MEDS: MULTIVITAMINS WITH MINERALS, THERAPEUTIC TABLET PO SCH (08:24)
[2017-02-05] MEDS: FLUTICASONE PROPIONATE HFA 220 MCG/PUFF 12 GM INHR IH SCH (08:24)
[2017-02-05] MEDS: HALOPERIDOL 10 MG TABLET PO SCH ×2 (08:24→20:27)
[2017-02-05] MEDS: FAMOTIDINE 20 MG TABLET PO SCH ×2 (08:24→20:27)
[2017-02-05] MEDS: VANCOMYCIN HCL 1 GM/D5% WATER 200 ML IV SCH (08:24)
[2017-02-05] MEDS: BENZTROPINE MESYLATE 0.5 MG TABLET PO SCH ×2 (08:25→20:27)
[2017-02-05] MEDS: AmLODIPine BESYLATE 5 MG TABLET PO SCH (08:29)
[2017-02-05] MEDS: OXYBUTYNIN CHLORIDE 5 MG TABLET PO SCH ×2 (08:29→20:27)
[2017-02-05 11:25] LABS: BASOPHILS % (AUTO) 0.3 % (0.0-2.0); EOSINOPHILS % (AUTO) 2.8 % (1.0-6.0); HEMATOCRIT 30.1 % (36-46); HEMOGLOBIN 10.2 g/dL (12.0-16.0); LYMPHOCYTES # (AUTO) 1.9 K/uL (1.0-4.8); LYMPHOCYTES % (AUTO) 12.7 % (22.0-44.0); MEAN CORPUSCULAR HEMOGLOBIN 29.8 pg (26.0-34.0); MEAN CORPUSCULAR VOLUME 88 fL (80-100); MONOCYTES # (AUTO) 0.8 K/uL (0.1-1.0); MONOCYTES % (AUTO) 4.9 % (2.0-9.0); NEUTROPHILS # (AUTO) 12.2 K/uL (1.8-7.7); NEUTROPHILS % (AUTO) 79.3 % (40.0-70.0); PLATELET COUNT (AUTO) 419 K/uL (150-450); RED BLOOD CELL COUNT(AUTO) 3.42 MIL/uL (4.00-5.20); RED CELL DISTRIBUTION WIDTH 14.7 % (11.5-14.5); WHITE BLOOD COUNT (AUTO) 15.4 K/uL (4.5-11.0)
[2017-02-05 11:34] VITALS: BP 129/62
[2017-02-05 16:08] VITALS: BP 118/46
[2017-02-05] MEDS: OXYGEN THERAPY IH SCH (16:27)
[2017-02-05 19:19] VITALS: BP 123/60
[2017-02-05] MEDS ORDERED: MAGNESIUM HYDROXIDE SUSPENSION 30 ML UDCUP PO PRN (20:15)
[2017-02-05] MEDS ORDERED: MACR100 PO (20:16)
[2017-02-05] MEDS: MIRTAZAPINE 15 MG TABLET PO SCH (20:27)
[2017-02-05] MEDS: DOCUSATE SODIUM 100 MG CAPSULE PO SCH (20:32)
[2017-02-05 23:21] VITALS: BP 140/68
[2017-02-06] MEDS: HYDROCODONE/ACETAMINOPHEN 5-325 MG TABLET PO PRN ×2 (02:17→08:40)
[2017-02-06 03:43] VITALS: BP 130/70
[2017-02-06] MEDS: MORPHINE SULFATE 4 MG/ML SYRINGE IVP PRN ×5 (03:43→21:02)
[2017-02-06] MEDS: CefoTEtan DISOD 2 GM/DEXTROSE 50 ML IV SCH ×2 (05:00→17:37)
[2017-02-06 07:06] VITALS: BP 136/68
[2017-02-06 07:06] LABS: CREATININE 1.33 mg/dL (0.60-1.30); POTASSIUM 4.3 mmol/L (3.5-5.1)
[2017-02-06 07:18] VITALS: BP 130/79
[2017-02-06] MEDS: AmLODIPine BESYLATE 5 MG TABLET PO SCH (08:38)
[2017-02-06] MEDS: FAMOTIDINE 20 MG TABLET PO SCH ×2 (08:38→21:01)
[2017-02-06] MEDS: MULTIVITAMINS WITH MINERALS, THERAPEUTIC TABLET PO SCH (08:39)
[2017-02-06] MEDS: OXYBUTYNIN CHLORIDE 5 MG TABLET PO SCH ×2 (08:39→21:01)
[2017-02-06] MEDS: DOCUSATE SODIUM 100 MG CAPSULE PO SCH ×2 (08:39→21:01)
[2017-02-06] MEDS: BENZTROPINE MESYLATE 0.5 MG TABLET PO SCH ×2 (08:40→21:01)
[2017-02-06] MEDS: OXYGEN THERAPY IH SCH (08:40)
[2017-02-06] MEDS: HALOPERIDOL 10 MG TABLET PO SCH ×2 (08:40→21:01)
[2017-02-06] MEDS: FLUTICASONE PROPIONATE HFA 220 MCG/PUFF 12 GM INHR IH SCH (08:40)
[2017-02-06] MEDS: VANCOMYCIN HCL 1 GM/D5% WATER 200 ML IV SCH (08:40)
[2017-02-06] MEDS ORDERED: SODIUM CHLORIDE 0.9% 500 ML IV ONE (17:48)
[2017-02-06 19:48] VITALS: BP 123/56
[2017-02-06] MEDS: MIRTAZAPINE 15 MG TABLET PO SCH (21:01)
[2017-02-07 00:07] VITALS: BP 135/64
[2017-02-07] MEDS: HYDROmorphone 2 MG/ML SYRINGE IVP PRN ×4 (00:34→12:50)
[2017-02-07 03:51] VITALS: BP 124/67
[2017-02-07] MEDS: CefoTEtan DISOD 2 GM/DEXTROSE 50 ML IV SCH ×2 (04:26→16:20)
[2017-02-07 06:48] LABS: CALCIUM, TOTAL 8.9 mg/dL (8.8-10.5); CREATININE 1.41 mg/dL (0.60-1.30); POTASSIUM 4.3 mmol/L (3.5-5.1)
[2017-02-07 07:22] VITALS: BP 126/62
[2017-02-07] MEDS ORDERED: VANCOMYCIN HCL 500 MG in DEXTROSE 5%-WATER 100 ML IV SCH (08:00)
[2017-02-07] MEDS: OXYBUTYNIN CHLORIDE 5 MG TABLET PO SCH ×2 (08:02→20:11)
[2017-02-07] MEDS: FAMOTIDINE 20 MG TABLET PO SCH ×2 (08:02→20:11)
[2017-02-07] MEDS: DOCUSATE SODIUM 100 MG CAPSULE PO SCH ×2 (08:03→20:11)
[2017-02-07] MEDS: AmLODIPine BESYLATE 5 MG TABLET PO SCH (08:03)
[2017-02-07] MEDS: MULTIVITAMINS WITH MINERALS, THERAPEUTIC TABLET PO SCH (08:03)
[2017-02-07] MEDS: VANCOMYCIN HCL 500 MG in DEXTROSE 5%-WATER 100 ML IV SCH ×2 (08:04→20:12)
[2017-02-07] MEDS: HALOPERIDOL 10 MG TABLET PO SCH ×2 (08:04→20:11)
[2017-02-07] MEDS: FLUTICASONE PROPIONATE HFA 220 MCG/PUFF 12 GM INHR IH SCH (08:05)
[2017-02-07] MEDS: BENZTROPINE MESYLATE 0.5 MG TABLET PO SCH ×2 (08:05→20:11)
[2017-02-07] MEDS: OXYGEN THERAPY IH SCH ×2 (08:09→20:00)
[2017-02-07 11:22] VITALS: BP 130/64
[2017-02-07 15:51] VITALS: BP 111/59
[2017-02-07] MEDS: HYDROCODONE/ACETAMINOPHEN 5-325 MG TABLET PO PRN ×2 (16:22→20:29)
[2017-02-07 19:53] VITALS: BP 119/52
[2017-02-07] MEDS: MIRTAZAPINE 15 MG TABLET PO SCH (20:11)
[2017-02-08] MEDS: HYDROCODONE/ACETAMINOPHEN 5-325 MG TABLET PO PRN ×4 (03:02→17:09)
[2017-02-08 03:30] VITALS: BP 124/58
[2017-02-08] MEDS: CefoTEtan DISOD 2 GM/DEXTROSE 50 ML IV SCH ×2 (05:18→17:09)
[2017-02-08 06:54] LABS: CALCIUM, TOTAL 8.9 mg/dL (8.8-10.5); CREATININE 1.24 mg/dL (0.60-1.30); POTASSIUM 4.1 mmol/L (3.5-5.1)
[2017-02-08 07:57] VITALS: BP 134/57
[2017-02-08] MEDS: OXYGEN THERAPY IH SCH ×2 (08:00→19:54)
[2017-02-08] MEDS: OXYBUTYNIN CHLORIDE 5 MG TABLET PO SCH ×2 (08:36→19:53)
[2017-02-08] MEDS: FLUTICASONE PROPIONATE HFA 220 MCG/PUFF 12 GM INHR IH SCH (08:36)
[2017-02-08] MEDS: BENZTROPINE MESYLATE 0.5 MG TABLET PO SCH ×2 (08:36→19:53)
[2017-02-08] MEDS: AmLODIPine BESYLATE 5 MG TABLET PO SCH (08:36)
[2017-02-08] MEDS: FAMOTIDINE 20 MG TABLET PO SCH ×2 (08:36→19:53)
[2017-02-08] MEDS: HALOPERIDOL 10 MG TABLET PO SCH ×2 (08:36→19:53)
[2017-02-08] MEDS: MULTIVITAMINS WITH MINERALS, THERAPEUTIC TABLET PO SCH (08:36)
[2017-02-08] MEDS: DOCUSATE SODIUM 100 MG CAPSULE PO SCH ×2 (08:36→19:53)
[2017-02-08] MEDS: VANCOMYCIN HCL 500 MG in DEXTROSE 5%-WATER 100 ML IV SCH ×2 (08:45→19:53)
[2017-02-08 11:49] VITALS: BP 118/65
[2017-02-08 15:46] VITALS: BP 116/47
[2017-02-08] MEDS ORDERED: SODIUM CHLORIDE 0.9% 500 ML IV ONE (16:44)
[2017-02-08] MEDS: MIRTAZAPINE 15 MG TABLET PO SCH (19:53)
[2017-02-08 20:07] VITALS: BP 130/55
[2017-02-08 23:29] VITALS: BP 127/62
[2017-02-09] MEDS: HYDROCODONE/ACETAMINOPHEN 5-325 MG TABLET PO PRN ×5 (01:23→19:18)
[2017-02-09 04:46] VITALS: BP 122/54
[2017-02-09] MEDS: CefoTEtan DISOD 2 GM/DEXTROSE 50 ML IV SCH ×2 (05:06→17:18)
[2017-02-09] MEDS ORDERED: SODIUM CHLORIDE 0.9% 500 ML IV ONE (05:10)
[2017-02-09 07:08] LABS: CALCIUM, TOTAL 9.1 mg/dL (8.8-10.5); CREATININE 1.27 mg/dL (0.60-1.30); POTASSIUM 4.2 mmol/L (3.5-5.1)
[2017-02-09 08:15] VITALS: BP 120/61
[2017-02-09] MEDS: MULTIVITAMINS WITH MINERALS, THERAPEUTIC TABLET PO SCH (08:59)
[2017-02-09] MEDS: BENZTROPINE MESYLATE 0.5 MG TABLET PO SCH (08:59)
[2017-02-09] MEDS: FAMOTIDINE 20 MG TABLET PO SCH (08:59)
[2017-02-09] MEDS: HALOPERIDOL 10 MG TABLET PO SCH (08:59)
[2017-02-09] MEDS: AmLODIPine BESYLATE 5 MG TABLET PO SCH (08:59)
[2017-02-09] MEDS: OXYBUTYNIN CHLORIDE 5 MG TABLET PO SCH (08:59)
[2017-02-09] MEDS: DOCUSATE SODIUM 100 MG CAPSULE PO SCH (09:00)
[2017-02-09] MEDS: VANCOMYCIN HCL 500 MG in DEXTROSE 5%-WATER 100 ML IV SCH (09:00)
[2017-02-09] MEDS: FLUTICASONE PROPIONATE HFA 220 MCG/PUFF 12 GM INHR IH SCH (09:01)
[2017-02-09] MEDS: OXYGEN THERAPY IH SCH (09:01)
[2017-02-09 11:36] VITALS: BP 129/85
== END 2017-02-09 19:40 | DRG 907 ==
LOC: EMS 13:05 → 6N 14:13
PROVIDERS: ADMIT Internal Medicine; ATTEND Internal Medicine
PROC: 0WQF0ZZ Repair Abdominal Wall, Open Approach (ICD-10-PCS; 2017-02-02)
PROC: 0WJP0ZZ Inspection of Gastrointestinal Tract, Open Approach (ICD-10-PCS; principal; 2017-02-02 14:30)
PROC: 05HC33Z Insertion of Infusion Device into Left Basilic Vein, Percutaneous Approach (ICD-10-PCS; 2017-02-09)
PROC: B54NZZA Ultrasonography of Left Upper Extremity Veins, Guidance (ICD-10-PCS; 2017-02-09)
DX: T81.30XA Disruption of wound, unspecified, initial encounter (principal); A41.9 Sepsis, unspecified organism; C64.2 Malignant neoplasm of left kidney, except renal pelvis; F20.9 Schizophrenia, unspecified; J44.9 Chronic obstructive pulmonary disease, unspecified; E78.00 Pure hypercholesterolemia, unspecified; B95.7 Other staphylococcus as the cause of diseases classified elsewhere; N39.0 Urinary tract infection, site not specified; F17.200 Nicotine dependence, unspecified, uncomplicated; G89.29 Other chronic pain; H91.90 Unspecified hearing loss, unspecified ear; I10 Essential (primary) hypertension; K21.9 Gastro-esophageal reflux disease without esophagitis; Z16.24 Resistance to multiple antibiotics; Z85.528 Personal history of other malignant neoplasm of kidney; Z88.0 Allergy status to penicillin; Z90.5 Acquired absence of kidney
CPT/HCPCS: 83735; 86850; 86900; 86901; 87040; 87070; 87081; 87086; 87205; 93005; 96361; 96365; 96374; 96375; 96376; 97116; 97162; 97530; 99291; G0238; J0330; J0690; J1170; J2175; J2250; J2270; J2405; J2704; J3010; J3370; J3480; J3490; J3535; J7030; J7040; J7060; J7120

== ENCOUNTER 2017-07-10 06:35 | Inpatient (IN) | payer MEDICARE, OTHER ==
[~2017-07-10] VITALS: Ht 162.6 cm; Wt 61.2 kg
[~2017-07-10 06:35] MED LIST changes: +BENZ0.5T44 PO; -BENZ0.5T6 PO; -FentaNYL CITRATE-PF 100 MCG/2 ML VIAL IVP ONE; -LIDOCAINE HCL/PF 2% 5 ML VIAL INJ ONE; +MACR100 PO; -MIDAZOLAM HCL 2 MG/2 ML VIAL IVP ONE; -NITR25OR3 PO; -NITR50CA PO; -PROPOFOL 1% 20 ML VIAL IVP ONE; -ROCURONIUM BROMIDE 10 MG/ML 5 ML VIAL IVP ONE; -SUCCINYLCHOLINE CHLORIDE 20 MG/ML 10 ML VIAL IVP ONE
[2017-07-10] MEDS ORDERED: AMLO-512 PO (06:44)
[2017-07-10] MEDS ORDERED: ASCO500 PO (06:44)
[2017-07-10] MEDS ORDERED: BENZ0.5T44 PO (06:44)
[2017-07-10] MEDS ORDERED: AMIT25TA9 PO (06:44)
[2017-07-10] MEDS ORDERED: TRIF10 PO (06:44)
[2017-07-10] MEDS ORDERED: ZINC220 PO (06:44)
[2017-07-10] MEDS ORDERED: TRAZ-147 PO (06:44)
[2017-07-10] MEDS ORDERED: TIOT4MIS2 IH (06:44)
[2017-07-10] MEDS ORDERED: RANI150T7 PO (06:44)
[2017-07-10] MEDS ORDERED: FLUT1BLS IH (06:44)
[2017-07-10 08:04] LABS: BASOPHILS % (AUTO) 0.2 % (0.0-2.0); EOSINOPHILS % (AUTO) 0.2 % (1.0-6.0); HEMATOCRIT 34.7 % (36-46); HEMOGLOBIN 11.9 g/dL (12.0-16.0); LYMPHOCYTES # (AUTO) 0.8 K/uL (1.0-4.8); LYMPHOCYTES % (AUTO) 6.2 % (22.0-44.0); MEAN CORPUSCULAR HEMOGLOBIN 29.3 pg (26.0-34.0); MEAN CORPUSCULAR HGB CONC 34.4 G/dL (31.0-37.0); MEAN CORPUSCULAR VOLUME 85 fL (80-100); MONOCYTES # (AUTO) 0.7 K/uL (0.1-1.0); MONOCYTES % (AUTO) 5.9 % (2.0-9.0); NEUTROPHILS # (AUTO) 11.1 K/uL (1.8-7.7); PLATELET COUNT (AUTO) 274 K/uL (150-450); RED BLOOD CELL COUNT(AUTO) 4.07 MIL/uL (4.00-5.20); RED CELL DISTRIBUTION WIDTH 16.1 % (11.5-14.5)
[2017-07-10 08:08] LABS: NEUTROPHILS % (AUTO) 87.5 % (40.0-70.0)
[2017-07-10 08:16] LABS: ANION GAP 7 mmol/L (8-16); CALCIUM, TOTAL 9.4 mg/dL (8.8-10.5); CARBON DIOXIDE 26 mmol/L (22-29); CHLORIDE 104 mmol/L (98-107); CREATININE 1.21 mg/dL (0.60-1.30); GLOMERULAR FILTR. RATE CALC 44 mL/min (>60); GLUCOSE,RANDOM 94 mg/dL (70-110); POTASSIUM 3.8 mmol/L (3.5-5.1); SODIUM SERUM 137 mmol/L (136-145); UREA NITROGEN, BLOOD 31 mg/dL (7-18)
[2017-07-10 08:17] LABS: INR 0.9 (0.9-1.1); PROTHROMBIN TIME 9.3 SEC (9.4-11.6)
[2017-07-10 08:23] LABS: ALANINE AMINOTRANSFERASE 16 U/L (12-78); ALBUMIN 2.6 g/dL (3.4-5.0); ALKALINE PHOSPHATASE 103 U/L (46-116); ASPARTATE AMINOTRANSFERASE 15 U/L (15-37); BILIRUBIN,TOTAL 0.6 mg/dL (0.1-1.0); CREATINE KINASE, TOTAL 52 U/L (26-192); TOTAL PROTEIN, SERUM 7.2 g/dL (6.4-8.2)
[2017-07-10 08:44] LABS: B-TYPE NATRIURETIC PEPTIDE 64 pg/mL (0-100)
[2017-07-10 08:57] LABS: APPEARANCE,URINE CLOUDY (CLEAR); BILIRUBIN,URINE NEGATIVE (NEGATIVE); GLUCOSE, URINE (UA) NEGATIVE (NEGATIVE); KETONES,URINE TRACE mg/dL (NEGATIVE); LEUKOCYTE ESTERASE ,URINE MODERATE (NEGATIVE); NITRATE,URINE POSITIVE (NEGATIVE); OCCULT BLOOD,URINE SMALL (NEGATIVE); PROTEIN,URINE SEE CONFIRM (NEGATIVE)
[2017-07-10 09:12] LABS: SULFOSALICYLIC ACID,URINE 2+ (Negative)
[2017-07-10 09:13] LABS: BACTERIA,URINE Moderate /HPF (None Seen); RBC,URINE 0-2 /HPF (0-2); SQUAMOUS EPITHELIAL CELL,UR Few /LPF (None Seen); WBC,URINE >100 /HPF (0-5)
[2017-07-10] MEDS ORDERED: SODIUM CHLORIDE 0.9% 500 ML IV ONE (10:00)
[2017-07-10] MEDS ORDERED: MECLIZINE HCL 25 MG TABLET PO ONE (10:00)
[2017-07-10 11:05] LABS: AMPHET/METH SCREEN,URINE POSITIVE (NEGATIVE); BARBITURATE SCREEN, URINE NEGATIVE (NEGATIVE); BENZODIAZEPINES SCREEN,URINE NEGATIVE (NEGATIVE); CANNABINOID SCREEN,URINE NEGATIVE (NEGATIVE); COCAINE SCREEN,URINE NEGATIVE (NEGATIVE); METHADONE SCREEN, URINE NEGATIVE (NEGATIVE); OPIATE SCREEN,URINE NEGATIVE (NEGATIVE)
[2017-07-10 11:07] LABS: PHENCYCLIDINE SCREEN,URINE NEGATIVE (NEGATIVE)
[2017-07-10] MEDS ORDERED: MAGNESIUM HYDROXIDE SUSPENSION 30 ML UDCUP PO PRN (11:30)
[2017-07-10] MEDS ORDERED: ZOLPIDEM TARTRATE 5 MG TABLET PO PRN (11:30)
[2017-07-10] MEDS ORDERED: HYDROCODONE/ACETAMINOPHEN 5-325 MG TABLET PO PRN (11:30)
[2017-07-10] MEDS ORDERED: LEVOFLOXACIN 750 MG/D5% WATER 150 ML IV ONE (11:30)
[2017-07-10] MEDS ORDERED: BISACODYL 10 MG RECTAL RECTAL SUPPOSITORY PR PRN (11:30)
[2017-07-10] MEDS ORDERED: ONDANSETRON HCL 4 MG/2 ML VIAL IVP PRN (11:30)
[2017-07-10] MEDS ORDERED: *CLINICAL-LEVOFLOXACIN IVPB DOSING CLINICAL ONE (11:30)
[2017-07-10] MEDS ORDERED: SODIUM CHLORIDE 0.9% 1,000 ML IV ONE ×2 (11:30)
[2017-07-10] MEDS ORDERED: MORPHINE SULFATE 4 MG/ML SYRINGE IVP PRN (11:30)
[2017-07-10 15:12] VITALS: BP 131/58
[2017-07-10] MEDS: HEPARIN SODIUM,PORCINE 5,000 UNITS/ML VIAL SQ SCH ×3 (16:00→23:51)
[2017-07-10] MEDS: ZINC SULFATE 220 MG CAPSULE PO SCH ×2 (16:14→20:27)
[2017-07-10] MEDS ORDERED: DIAZEPAM 5 MG TABLET PO PRN (17:15)
[2017-07-10 19:48] VITALS: BP 127/54
[2017-07-10] MEDS: MIRTAZAPINE 15 MG TABLET PO SCH (20:27)
[2017-07-10] MEDS: OLANZapine 5 MG RAPDIS TABLET PO SCH (20:27)
[2017-07-10] MEDS: DOCUSATE SODIUM 100 MG CAPSULE PO SCH (20:27)
[2017-07-10] MEDS ORDERED: TraZODone HCL 100 MG TABLET PO SCH (21:00)
[2017-07-10] MEDS ORDERED: BENZTROPINE MESYLATE 0.5 MG TABLET PO SCH (21:00)
[2017-07-10] MEDS ORDERED: TRIFLUOPERAZINE HCL 10 MG TABLET PO SCH (21:00)
[2017-07-10] MEDS ORDERED: AMITRIPTYLINE HCL 25 MG TABLET PO SCH (21:00)
[2017-07-10 23:57] VITALS: BP 132/61
[2017-07-11 06:15] VITALS: BP 123/85
[2017-07-11] MEDS ORDERED: DIAZEPAM 5 MG TABLET PO PRN (07:00)
[2017-07-11 07:31] VITALS: BP 128/62
[2017-07-11] MEDS ORDERED: [UNRECOGNIZED DRUG - OTHER] IH SCH (09:00)
[2017-07-11] MEDS: DIAZEPAM 5 MG TABLET PO SCH ×4 (09:09→20:01)
[2017-07-11] MEDS: HEPARIN SODIUM,PORCINE 5,000 UNITS/ML VIAL SQ SCH ×3 (09:09→23:47)
[2017-07-11] MEDS: PANTOPRAZOLE SODIUM 40 MG DR TABLET PO SCH (09:10)
[2017-07-11] MEDS: DOCUSATE SODIUM 100 MG CAPSULE PO SCH ×2 (09:10→20:01)
[2017-07-11] MEDS: AmLODIPine BESYLATE 10 MG TABLET PO SCH (09:10)
[2017-07-11] MEDS: FLUTICASONE/VILANTEROL 200-25 MCG/INH INHALER [14] IH SCH (09:10)
[2017-07-11] MEDS: ZINC SULFATE 220 MG CAPSULE PO SCH ×3 (09:11→20:01)
[2017-07-11 11:39] VITALS: BP 118/60
[2017-07-11] MEDS: NICOTINE 21 MG/24 HOUR PATCH TD SCH (16:08)
[2017-07-11] MEDS: ASCORBIC ACID 500 MG TABLET PO SCH (16:09)
[2017-07-11] MEDS: ACETAMINOPHEN 325 MG TABLET PO PRN (18:18)
[2017-07-11] MEDS: MIRTAZAPINE 15 MG TABLET PO SCH (20:01)
[2017-07-11] MEDS: OLANZapine 5 MG RAPDIS TABLET PO SCH (20:02)
[2017-07-11 20:26] VITALS: BP 133/65
[2017-07-12] MEDS: ACETAMINOPHEN 325 MG TABLET PO PRN ×2 (00:36→10:41)
[2017-07-12 00:54] VITALS: BP 118/57
[2017-07-12 04:24] VITALS: BP 131/69
[2017-07-12 07:49] VITALS: BP 116/64
[2017-07-12] MEDS: AmLODIPine BESYLATE 10 MG TABLET PO SCH (09:50)
[2017-07-12] MEDS: DOCUSATE SODIUM 100 MG CAPSULE PO SCH (09:50)
[2017-07-12] MEDS: ZINC SULFATE 220 MG CAPSULE PO SCH ×2 (09:50→17:26)
[2017-07-12] MEDS: PANTOPRAZOLE SODIUM 40 MG DR TABLET PO SCH (09:50)
[2017-07-12] MEDS: HEPARIN SODIUM,PORCINE 5,000 UNITS/ML VIAL SQ SCH ×2 (09:51→17:26)
[2017-07-12] MEDS: ASCORBIC ACID 500 MG TABLET PO SCH (09:51)
[2017-07-12] MEDS: DIAZEPAM 5 MG TABLET PO SCH ×4 (09:52→17:26)
[2017-07-12] MEDS: FLUTICASONE/VILANTEROL 200-25 MCG/INH INHALER [14] IH SCH (09:52)
[2017-07-12] MEDS: NICOTINE 21 MG/24 HOUR PATCH TD SCH (09:54)
[2017-07-12] MEDS ORDERED: LEVOFLOXACIN 750 MG/D5% WATER 150 ML IV SCH (10:00)
[2017-07-12] MEDS ORDERED: SODIUM CHLORIDE 0.9% 250 ML IV ONE (10:39)
[2017-07-12 13:25] LABS: BASOPHILS % (AUTO) 0.6 % (0.0-2.0); HEMATOCRIT 35.5 % (36-46); LYMPHOCYTES # (AUTO) 1.5 K/uL (1.0-4.8); LYMPHOCYTES % (AUTO) 13.2 % (22.0-44.0); MEAN CORPUSCULAR HEMOGLOBIN 28.9 pg (26.0-34.0); MEAN CORPUSCULAR HGB CONC 33.9 G/dL (31.0-37.0); MEAN CORPUSCULAR VOLUME 85 fL (80-100); MONOCYTES % (AUTO) 8.6 % (2.0-9.0); NEUTROPHILS # (AUTO) 8.7 K/uL (1.8-7.7); NEUTROPHILS % (AUTO) 76.6 % (40.0-70.0); PLATELET COUNT (AUTO) 351 K/uL (150-450); RED BLOOD CELL COUNT(AUTO) 4.16 MIL/uL (4.00-5.20); RED CELL DISTRIBUTION WIDTH 15.5 % (11.5-14.5)
[2017-07-12 13:35] LABS: ANION GAP 7 mmol/L (8-16); CALCIUM, TOTAL 8.5 mg/dL (8.8-10.5); CARBON DIOXIDE 28 mmol/L (22-29); CHLORIDE 103 mmol/L (98-107); CREATININE 1.15 mg/dL (0.60-1.30); GLOMERULAR FILTR. RATE CALC 47 mL/min (>60); GLUCOSE,RANDOM 176 mg/dL (70-110); POTASSIUM 3.5 mmol/L (3.5-5.1); SODIUM SERUM 138 mmol/L (136-145); UREA NITROGEN, BLOOD 19 mg/dL (7-18)
[2017-07-12 13:41] LABS: ALBUMIN 2.1 g/dL (3.4-5.0); ALKALINE PHOSPHATASE 79 U/L (46-116); ASPARTATE AMINOTRANSFERASE 8 U/L (15-37); BILIRUBIN,TOTAL 0.3 mg/dL (0.1-1.0)
[2017-07-12 13:52] LABS: ALANINE AMINOTRANSFERASE < 6 U/L (12-78)
[2017-07-12 15:41] VITALS: BP 114/58
[2017-07-12] MEDS ORDERED: LEVO500 PO (18:15)
[2017-07-12] MEDS ORDERED: DIAZ5 PO ×2 (18:16→18:19)
[2017-07-12] MEDS ORDERED: OLANZapine 10 MG RAPDIS TABLET PO SCH (21:00)
[2017-07-13] MEDS ORDERED: DIAZEPAM 5 MG TABLET PO PRN (07:00)
[2017-07-13] MEDS ORDERED: DIAZEPAM 5 MG TABLET PO SCH (09:00)
[2017-07-14] MEDS ORDERED: DIAZEPAM 5 MG TABLET PO PRN (07:00)
== END 2017-07-12 19:15 | disposition home or self-care (01) | DRG 871 ==
LOC: EMS 06:36 → 4E 11:20 → 6N 07-11 17:16
PROVIDERS: ADMIT Internal Medicine; ATTEND Internal Medicine
DX: A41.9 Sepsis, unspecified organism (principal); E43 Unspecified severe protein-calorie malnutrition; N39.0 Urinary tract infection, site not specified; F25.9 Schizoaffective disorder, unspecified; E78.5 Hyperlipidemia, unspecified; F17.210 Nicotine dependence, cigarettes, uncomplicated; H91.90 Unspecified hearing loss, unspecified ear; I10 Essential (primary) hypertension; J44.9 Chronic obstructive pulmonary disease, unspecified; K21.9 Gastro-esophageal reflux disease without esophagitis; M19.90 Unspecified osteoarthritis, unspecified site; Z91.19 Patient's noncompliance with other medical treatment and regimen; Z88.0 Allergy status to penicillin; Z79.899 Other long term (current) drug therapy; Z68.23 Body mass index [BMI] 23.0-23.9, adult
CPT/HCPCS: 87086; 93005; 96365; 96366; 99285; G0480; J1644; J1956; J7030; J7040; J7050

== ENCOUNTER 2017-12-31 10:43 | Emergency (ER) | payer MEDICARE ==
[~2017-12-31] VITALS: Ht 162.6 cm; Wt 61.0 kg
[~2017-12-31 10:43] MED LIST changes: -AMLO-511 PO; +AMLO-512 PO; +ASCO500 PO; +DIAZ5 PO; -DOXY100C PO; +FLUT1BLS IH; -FLUT220HFA IH; -HALO10 PO; +LEVO500 PO; -MACR100 PO; -OXYB5 PO; +RANI150T7 PO; +TIOT4MIS2 IH; +TRIF10 PO; +ZINC220 PO
[2017-12-31 10:48] VITALS: BP 67/40
[2017-12-31] MEDS ORDERED: ZIPR40CA2 PO (11:09)
[2017-12-31] MEDS ORDERED: SODIUM CHLORIDE 0.9% 1,000 ML IV ONE (11:15)
[2017-12-31] MEDS ORDERED: CALCIUM GLUCONATE 100 MG/ML 10 ML IVP ONE (11:45)
[2017-12-31] MEDS ORDERED: GLUCAGON,HUMAN RECOMBINANT 1 MG VIAL IVP ONE (11:45)
[2018-02-15] MEDS ORDERED: BENZ0.5T44 PO (09:58)
[2018-02-15] MEDS ORDERED: ZIPR60CA2 PO (09:58)
[2018-02-15] MEDS ORDERED: AMLO-512 PO (10:21)
[2018-02-15] MEDS ORDERED: TIOT185 IH (10:22)
[2018-02-15] MEDS ORDERED: OMEP20 PO (10:22)
[2018-02-15] MEDS ORDERED: FLUT1BLS IH (10:22)
== END 2017-12-31 11:17 | disposition other institution (70) ==
LOC: EMS 10:44
DX: R55 Syncope and collapse (principal); Z53.21 Procedure and treatment not carried out due to patient leaving prior to being seen by health care provider
CPT/HCPCS: 93005; J1610

== ENCOUNTER 2018-01-16 07:50 | Emergency (ER) | payer MEDICARE ==
[~2018-01-16] VITALS: Ht 160 cm; Wt 63.6 kg
[~2018-01-16 07:50] MED LIST changes: -DIAZ5 PO; -LEVO500 PO; -MIRT15 PO; -RANI150T7 PO; -TRIF10 PO; -ZINC220 PO; +ZIPR40CA2 PO
[2018-01-16] MEDS ORDERED: ZIPRASIDONE HCL 40 MG CAPSULE PO ONE (09:45)
[2018-01-16 09:46] VITALS: BP 136/62
== END 2018-01-16 10:13 | disposition home or self-care (01) ==
LOC: EMS 07:57
DX: F25.9 Schizoaffective disorder, unspecified (principal); I10 Essential (primary) hypertension; E78.00 Pure hypercholesterolemia, unspecified; J44.9 Chronic obstructive pulmonary disease, unspecified; F31.9 Bipolar disorder, unspecified; F17.210 Nicotine dependence, cigarettes, uncomplicated; Z76.0 Encounter for issue of repeat prescription; Z88.0 Allergy status to penicillin

== ENCOUNTER 2018-01-16 19:22 | Emergency (ER) | payer MEDICARE ==
[~2018-01-16] VITALS: Ht 160 cm; Wt 77.3 kg
[2018-01-16 19:35] VITALS: BP 140/70
== END 2018-01-16 21:15 | disposition left against medical advice (07) ==
LOC: EMS 19:23
DX: Z00.8 Encounter for other general examination (principal); Z53.21 Procedure and treatment not carried out due to patient leaving prior to being seen by health care provider

== ENCOUNTER 2018-02-18 23:05 | Inpatient (IN) | payer MEDICARE ==
[~2018-02-18] VITALS: Ht 160 cm; Wt 53.7 kg
[~2018-02-18 23:05] MED LIST changes: -ASCO500 PO; +TIOT185 IH; -TIOT4MIS2 IH; -ZIPR40CA2 PO; +ZIPR60CA2 PO
[2018-02-19 00:42] LABS: ANION GAP 9 mmol/L (8-16); CALCIUM, TOTAL 9.9 mg/dL (8.8-10.5); CARBON DIOXIDE 28 mmol/L (22-29); CHLORIDE 103 mmol/L (98-107); CREATININE 1.53 mg/dL (0.60-1.30); GLOMERULAR FILTR. RATE CALC 34 mL/min (>60); GLUCOSE,RANDOM 109 mg/dL (70-110); POTASSIUM 5.1 mmol/L (3.5-5.1); SODIUM SERUM 140 mmol/L (136-145); UREA NITROGEN, BLOOD 42 mg/dL (7-18)
[2018-02-19 00:43] LABS: BASOPHILS % (AUTO) 0.6 % (0.0-2.0); EOSINOPHILS % (AUTO) 0.2 % (1.0-6.0); HEMOGLOBIN 11.9 g/dL (12.0-16.0); LYMPHOCYTES # (AUTO) 0.9 K/uL (1.0-4.8); LYMPHOCYTES % (AUTO) 8.1 % (22.0-44.0); MEAN CORPUSCULAR HEMOGLOBIN 28.4 pg (26.0-34.0); MEAN CORPUSCULAR HGB CONC 33.8 G/dL (31.0-37.0); MEAN CORPUSCULAR VOLUME 84 fL (80-100); MONOCYTES # (AUTO) 0.7 K/uL (0.1-1.0); MONOCYTES % (AUTO) 6.3 % (2.0-9.0); NEUTROPHILS # (AUTO) 9.2 K/uL (1.8-7.7); NEUTROPHILS % (AUTO) 84.8 % (40.0-70.0); PLATELET COUNT (AUTO) 332 K/uL (150-450); RED BLOOD CELL COUNT(AUTO) 4.17 MIL/uL (4.00-5.20); RED CELL DISTRIBUTION WIDTH 14.6 % (11.5-14.5)
[2018-02-19] MEDS ORDERED: HALOPERIDOL 5 MG TABLET PO PRN (01:45)
[2018-02-19 03:20] VITALS: BP 131/66
[2018-02-19] MEDS ORDERED: -PHARMACY VACCINE NOTE- MISC ONE (06:00)
[2018-02-19 10:10] VITALS: BP 96/52
[2018-02-19] MEDS: BENZTROPINE MESYLATE 0.5 MG TABLET PO SCH ×3 (11:00→16:25)
[2018-02-19] MEDS ORDERED: PETROLATUM,WHITE 71 GM JELLY TP PRN (15:30)
[2018-02-19] MEDS ORDERED: MAGNESIUM HYDROXIDE SUSPENSION 30 ML UDCUP PO PRN (15:30)
[2018-02-19] MEDS ORDERED: CloNIDine HCL 0.1 MG TABLET PO PRN (15:30)
[2018-02-19] MEDS ORDERED: NICOTINE 14 MG/24 HOUR PATCH TD PRN (15:30)
[2018-02-19] MEDS ORDERED: ALBUTEROL SULFATE HFA 90 MCG/PUFF 8 GM INHALER IH PRN (15:30)
[2018-02-19] MEDS ORDERED: LOPERAMIDE HCL 2 MG CAPSULE PO PRN (15:30)
[2018-02-19] MEDS ORDERED: MAG HYDROX/AL HYDROX/SIMETH ES 30 ML SUSPENSION UDCUP PO PRN (15:30)
[2018-02-19] MEDS ORDERED: DOCUSATE SODIUM 100 MG CAPSULE PO PRN (15:30)
[2018-02-19] MEDS ORDERED: ONDANSETRON HCL 4 MG TABLET PO PRN (15:30)
[2018-02-19] MEDS: ZIPRASIDONE HCL 60 MG CAPSULE PO SCH (16:25)
[2018-02-19 20:23] VITALS: BP 104/54
[2018-02-19] MEDS: ZOLPIDEM TARTRATE 10 MG TABLET PO PRN (22:53)
[2018-02-19] MEDS: LEVOFLOXACIN 250 MG TABLET PO SCH (23:15)
[2018-02-20 02:00] VITALS: BP 114/65
[2018-02-20] MEDS: GuaiFENesin/D-METHORPHAN [SUGAR-FREE] 200-20MG/10 ML SYRUP UDCUP PO PRN (02:07)
[2018-02-20] MEDS: LEVOFLOXACIN 250 MG TABLET PO SCH ×2 (07:04→08:14)
[2018-02-20] MEDS: ZIPRASIDONE HCL 60 MG CAPSULE PO SCH ×2 (07:05→16:16)
[2018-02-20 08:05] VITALS: BP 109/60
[2018-02-20] MEDS: AmLODIPine BESYLATE 10 MG TABLET PO SCH (08:12)
[2018-02-20] MEDS: TIOTROPIUM BROMIDE 18 MCG/INH HANDIHALER [5] IH SCH (08:12)
[2018-02-20] MEDS: BENZTROPINE MESYLATE 0.5 MG TABLET PO SCH ×2 (08:13→16:16)
[2018-02-20] MEDS: FLUTICASONE/VILANTEROL 200-25 MCG/INH INHALER [14] IH SCH (08:13)
[2018-02-20] MEDS: OMEPRAZOLE 20 MG CAPSULE PO SCH (08:16)
[2018-02-20 16:30] VITALS: BP 116/55
[2018-02-21] MEDS: LORazepam 2 MG TABLET PO PRN (01:38)
[2018-02-21] MEDS: ZOLPIDEM TARTRATE 10 MG TABLET PO PRN (01:39)
[2018-02-21 01:44] VITALS: BP 152/73
[2018-02-21 03:15] VITALS: BP 125/59
[2018-02-21] MEDS: ZIPRASIDONE HCL 60 MG CAPSULE PO SCH ×2 (06:52→16:35)
[2018-02-21 07:22] LABS: CHOL/HDL RATIO 3.8 (3.9-5.7); THYROID STIMULATING HORMONE 0.36 uIU/mL (0.36-3.74)
[2018-02-21 08:39] VITALS: BP 123/63
[2018-02-21] MEDS: OMEPRAZOLE 20 MG CAPSULE PO SCH (08:39)
[2018-02-21] MEDS: LEVOFLOXACIN 250 MG TABLET PO SCH (08:39)
[2018-02-21] MEDS: AmLODIPine BESYLATE 10 MG TABLET PO SCH (08:40)
[2018-02-21] MEDS: BENZTROPINE MESYLATE 0.5 MG TABLET PO SCH ×2 (08:40→16:35)
[2018-02-21] MEDS: FLUTICASONE/VILANTEROL 200-25 MCG/INH INHALER [14] IH SCH (08:41)
[2018-02-21] MEDS: TIOTROPIUM BROMIDE 18 MCG/INH HANDIHALER [5] IH SCH (08:41)
[2018-02-21 17:43] VITALS: BP 108/54
[2018-02-21] MEDS: GuaiFENesin/D-METHORPHAN [SUGAR-FREE] 200-20MG/10 ML SYRUP UDCUP PO PRN (21:35)
[2018-02-22 00:12] VITALS: BP 125/66
[2018-02-22] MEDS: ZOLPIDEM TARTRATE 10 MG TABLET PO PRN (00:19)
[2018-02-22] MEDS: LORazepam 2 MG TABLET PO PRN (04:03)
[2018-02-22] MEDS: ZIPRASIDONE HCL 60 MG CAPSULE PO SCH ×2 (07:02→16:42)
[2018-02-22] MEDS: LEVOFLOXACIN 250 MG TABLET PO SCH ×2 (08:29→12:35)
[2018-02-22] MEDS: OMEPRAZOLE 20 MG CAPSULE PO SCH (08:30)
[2018-02-22] MEDS: FLUTICASONE/VILANTEROL 200-25 MCG/INH INHALER [14] IH SCH (08:30)
[2018-02-22] MEDS: AmLODIPine BESYLATE 10 MG TABLET PO SCH (08:30)
[2018-02-22] MEDS: BENZTROPINE MESYLATE 0.5 MG TABLET PO SCH ×2 (08:30→16:42)
[2018-02-22] MEDS: TIOTROPIUM BROMIDE 18 MCG/INH HANDIHALER [5] IH SCH (08:30)
[2018-02-22 09:50] VITALS: BP 134/64
[2018-02-22] MEDS ORDERED: GuaiFENesin/D-METHORPHAN [SUGAR-FREE] 200-20MG/10 ML SYRUP UDCUP PO PRN (12:00)
[2018-02-22 16:31] VITALS: BP 133/66
[2018-02-22] MEDS: GuaiFENesin SR 600 MG ER TABLET PO SCH (16:42)
[2018-02-23 00:05] VITALS: BP 124/60
[2018-02-23] MEDS: LORazepam 2 MG TABLET PO PRN (00:23)
[2018-02-23] MEDS: ZOLPIDEM TARTRATE 10 MG TABLET PO PRN ×2 (00:23→23:22)
[2018-02-23 03:29] VITALS: BP 131/62
[2018-02-23] MEDS: IBUPROFEN 400 MG TABLET PO PRN (03:31)
[2018-02-23] MEDS: ZIPRASIDONE HCL 60 MG CAPSULE PO SCH ×2 (06:59→16:45)
[2018-02-23] MEDS: LEVOFLOXACIN 250 MG TABLET PO SCH (08:38)
[2018-02-23] MEDS: OMEPRAZOLE 20 MG CAPSULE PO SCH (08:38)
[2018-02-23] MEDS: BENZTROPINE MESYLATE 0.5 MG TABLET PO SCH ×2 (08:39→16:45)
[2018-02-23] MEDS: AmLODIPine BESYLATE 10 MG TABLET PO SCH (08:39)
[2018-02-23] MEDS: TIOTROPIUM BROMIDE 18 MCG/INH HANDIHALER [5] IH SCH (08:40)
[2018-02-23] MEDS: GuaiFENesin SR 600 MG ER TABLET PO SCH ×2 (08:40→16:45)
[2018-02-23] MEDS: FLUTICASONE/VILANTEROL 200-25 MCG/INH INHALER [14] IH SCH (08:40)
[2018-02-23 09:14] VITALS: BP 129/72
[2018-02-23] MEDS: GuaiFENesin/D-METHORPHAN [SUGAR-FREE] 200-20MG/10 ML SYRUP UDCUP PO PRN (09:26)
[2018-02-23 13:57] LABS: AMPHET/METH SCREEN,URINE NEGATIVE (NEGATIVE); BARBITURATE SCREEN, URINE NEGATIVE (NEGATIVE); BENZODIAZEPINES SCREEN,URINE NEGATIVE (NEGATIVE); CANNABINOID SCREEN,URINE NEGATIVE (NEGATIVE); COCAINE SCREEN,URINE NEGATIVE (NEGATIVE); METHADONE SCREEN, URINE NEGATIVE (NEGATIVE); OPIATE SCREEN,URINE NEGATIVE (NEGATIVE); PHENCYCLIDINE SCREEN,URINE NEGATIVE (NEGATIVE)
[2018-02-23 14:02] LABS: APPEARANCE,URINE CLEAR (CLEAR); BILIRUBIN,URINE NEGATIVE (NEGATIVE); GLUCOSE, URINE (UA) NEGATIVE (NEGATIVE); KETONES,URINE NEGATIVE (NEGATIVE); LEUKOCYTE ESTERASE ,URINE NEGATIVE (NEGATIVE); NITRATE,URINE NEGATIVE (NEGATIVE); OCCULT BLOOD,URINE NEGATIVE (NEGATIVE); PROTEIN,URINE NEGATIVE (NEGATIVE); UROBILINOGEN,URINE 0.2 mg/dL (<=1.0)
[2018-02-23 16:00] VITALS: BP 104/54
[2018-02-24 01:00] VITALS: BP 144/69
[2018-02-24] MEDS: IBUPROFEN 400 MG TABLET PO PRN (01:25)
[2018-02-24 06:57] LABS: BASOPHILS % (AUTO) 0.6 % (0.0-2.0); HEMOGLOBIN 11.6 g/dL (12.0-16.0); LYMPHOCYTES # (AUTO) 2.4 K/uL (1.0-4.8); LYMPHOCYTES % (AUTO) 21.5 % (22.0-44.0); MEAN CORPUSCULAR HEMOGLOBIN 28.3 pg (26.0-34.0); MEAN CORPUSCULAR HGB CONC 34.2 G/dL (31.0-37.0); MEAN CORPUSCULAR VOLUME 83 fL (80-100); MONOCYTES # (AUTO) 0.8 K/uL (0.1-1.0); MONOCYTES % (AUTO) 6.9 % (2.0-9.0); NEUTROPHILS # (AUTO) 7.7 K/uL (1.8-7.7); PLATELET COUNT (AUTO) 368 K/uL (150-450); RED CELL DISTRIBUTION WIDTH 14.6 % (11.5-14.5)
[2018-02-24] MEDS: ZIPRASIDONE HCL 60 MG CAPSULE PO SCH ×2 (07:07→17:11)
[2018-02-24] MEDS: AmLODIPine BESYLATE 10 MG TABLET PO SCH (08:19)
[2018-02-24] MEDS: OMEPRAZOLE 20 MG CAPSULE PO SCH (08:19)
[2018-02-24] MEDS: GuaiFENesin SR 600 MG ER TABLET PO SCH ×2 (08:19→16:10)
[2018-02-24] MEDS: BENZTROPINE MESYLATE 0.5 MG TABLET PO SCH ×2 (08:19→16:09)
[2018-02-24] MEDS: FLUTICASONE/VILANTEROL 200-25 MCG/INH INHALER [14] IH SCH (08:20)
[2018-02-24] MEDS: TIOTROPIUM BROMIDE 18 MCG/INH HANDIHALER [5] IH SCH (08:31)
[2018-02-24] MEDS: LEVOFLOXACIN 250 MG TABLET PO SCH (09:21)
[2018-02-24 10:26] VITALS: BP 141/61
[2018-02-24] MEDS: ACETAMINOPHEN 325 MG TABLET PO PRN (16:38)
[2018-02-24 16:40] VITALS: BP 131/61
[2018-02-24 23:50] VITALS: BP 114/56
[2018-02-24] MEDS: ZOLPIDEM TARTRATE 10 MG TABLET PO PRN (23:54)
[2018-02-25 05:45] VITALS: BP 120/58
[2018-02-25] MEDS: ACETAMINOPHEN 325 MG TABLET PO PRN (05:47)
[2018-02-25] MEDS: ZIPRASIDONE HCL 60 MG CAPSULE PO SCH ×2 (07:24→16:51)
[2018-02-25] MEDS: GuaiFENesin SR 600 MG ER TABLET PO SCH ×2 (08:01→16:51)
[2018-02-25] MEDS: LEVOFLOXACIN 250 MG TABLET PO SCH (08:02)
[2018-02-25] MEDS: OMEPRAZOLE 20 MG CAPSULE PO SCH (08:02)
[2018-02-25] MEDS: BENZTROPINE MESYLATE 0.5 MG TABLET PO SCH ×2 (08:02→16:51)
[2018-02-25] MEDS: AmLODIPine BESYLATE 10 MG TABLET PO SCH (08:02)
[2018-02-25] MEDS: FLUTICASONE/VILANTEROL 200-25 MCG/INH INHALER [14] IH SCH (08:06)
[2018-02-25] MEDS: TIOTROPIUM BROMIDE 18 MCG/INH HANDIHALER [5] IH SCH (08:06)
[2018-02-25 09:23] VITALS: BP 122/60
[2018-02-25 16:25] VITALS: BP 117/67
[2018-02-25 23:47] VITALS: BP 133/49
[2018-02-25] MEDS: IBUPROFEN 400 MG TABLET PO PRN (23:50)
[2018-02-26] MEDS: ZIPRASIDONE HCL 60 MG CAPSULE PO SCH ×2 (06:32→19:11)
[2018-02-26 06:58] LABS: BASOPHILS % (AUTO) 0.6 % (0.0-2.0); HEMATOCRIT 36.7 % (36-46); HEMOGLOBIN 12.3 g/dL (12.0-16.0); LYMPHOCYTES # (AUTO) 1.9 K/uL (1.0-4.8); LYMPHOCYTES % (AUTO) 19.8 % (22.0-44.0); MEAN CORPUSCULAR HEMOGLOBIN 28.1 pg (26.0-34.0); MEAN CORPUSCULAR HGB CONC 33.4 G/dL (31.0-37.0); MEAN CORPUSCULAR VOLUME 84 fL (80-100); MONOCYTES # (AUTO) 0.8 K/uL (0.1-1.0); MONOCYTES % (AUTO) 7.9 % (2.0-9.0); NEUTROPHILS # (AUTO) 6.7 K/uL (1.8-7.7); NEUTROPHILS % (AUTO) 69.7 % (40.0-70.0); PLATELET COUNT (AUTO) 343 K/uL (150-450); RED BLOOD CELL COUNT(AUTO) 4.37 MIL/uL (4.00-5.20); RED CELL DISTRIBUTION WIDTH 14.7 % (11.5-14.5)
[2018-02-26 07:05] LABS: CALCIUM, TOTAL 9.5 mg/dL (8.8-10.5); CREATININE 1.1 mg/dL (0.60-1.30); POTASSIUM 4.2 mmol/L (3.5-5.1)
[2018-02-26] MEDS: OMEPRAZOLE 20 MG CAPSULE PO SCH (08:47)
[2018-02-26] MEDS: TIOTROPIUM BROMIDE 18 MCG/INH HANDIHALER [5] IH SCH (08:48)
[2018-02-26] MEDS: GuaiFENesin SR 600 MG ER TABLET PO SCH ×2 (08:48→16:12)
[2018-02-26] MEDS: BENZTROPINE MESYLATE 0.5 MG TABLET PO SCH ×2 (08:48→16:12)
[2018-02-26] MEDS: LEVOFLOXACIN 250 MG TABLET PO SCH (08:48)
[2018-02-26] MEDS: FLUTICASONE/VILANTEROL 200-25 MCG/INH INHALER [14] IH SCH (08:53)
[2018-02-26] MEDS: AmLODIPine BESYLATE 10 MG TABLET PO SCH (09:00)
[2018-02-26 09:38] VITALS: BP 109/58
[2018-02-26] MEDS: ACETAMINOPHEN 325 MG TABLET PO PRN (16:16)
[2018-02-26 16:17] VITALS: BP 105/69
[2018-02-26 17:30] VITALS: BP 110/60
[2018-02-27 02:05] VITALS: BP 114/59
[2018-02-27] MEDS: ZOLPIDEM TARTRATE 10 MG TABLET PO PRN (03:08)
[2018-02-27] MEDS: ZIPRASIDONE HCL 60 MG CAPSULE PO SCH ×2 (06:37→17:16)
[2018-02-27] MEDS: AmLODIPine BESYLATE 10 MG TABLET PO SCH (08:26)
[2018-02-27] MEDS: OMEPRAZOLE 20 MG CAPSULE PO SCH (08:26)
[2018-02-27] MEDS: LEVOFLOXACIN 250 MG TABLET PO SCH (08:27)
[2018-02-27] MEDS: BENZTROPINE MESYLATE 0.5 MG TABLET PO SCH ×2 (08:27→17:16)
[2018-02-27] MEDS: GuaiFENesin SR 600 MG ER TABLET PO SCH ×2 (08:27→17:16)
[2018-02-27] MEDS: TIOTROPIUM BROMIDE 18 MCG/INH HANDIHALER [5] IH SCH (08:27)
[2018-02-27] MEDS: FLUTICASONE/VILANTEROL 200-25 MCG/INH INHALER [14] IH SCH (08:29)
[2018-02-27 10:31] VITALS: BP 117/64
[2018-02-27 15:55] VITALS: BP 129/77
[2018-02-27] MEDS: IBUPROFEN 400 MG TABLET PO PRN (15:57)
[2018-02-27 16:37] VITALS: BP 129/77
[2018-02-28 00:21] VITALS: BP 116/55
[2018-02-28] MEDS: ZIPRASIDONE HCL 60 MG CAPSULE PO SCH ×2 (06:40→16:30)
[2018-02-28] MEDS: AmLODIPine BESYLATE 10 MG TABLET PO SCH (08:04)
[2018-02-28] MEDS: BENZTROPINE MESYLATE 0.5 MG TABLET PO SCH ×2 (08:06→16:30)
[2018-02-28] MEDS: TIOTROPIUM BROMIDE 18 MCG/INH HANDIHALER [5] IH SCH (08:06)
[2018-02-28] MEDS: OMEPRAZOLE 20 MG CAPSULE PO SCH (08:06)
[2018-02-28] MEDS: FLUTICASONE/VILANTEROL 200-25 MCG/INH INHALER [14] IH SCH (08:09)
[2018-02-28] MEDS: GuaiFENesin SR 600 MG ER TABLET PO SCH ×2 (08:09→16:30)
[2018-02-28] MEDS: LEVOFLOXACIN 250 MG TABLET PO SCH (08:14)
[2018-02-28 08:30] VITALS: BP 110/62
[2018-02-28 16:30] VITALS: BP 114/60
[2018-02-28] MEDS: IBUPROFEN 400 MG TABLET PO PRN (16:30)
[2018-02-28 17:30] VITALS: BP 127/59
[2018-03-01 00:10] VITALS: BP 126/66
[2018-03-01] MEDS: ZOLPIDEM TARTRATE 10 MG TABLET PO PRN (00:12)
[2018-03-01] MEDS: ZIPRASIDONE HCL 60 MG CAPSULE PO SCH (07:03)
[2018-03-01] MEDS: LEVOFLOXACIN 250 MG TABLET PO SCH (08:25)
[2018-03-01] MEDS: TIOTROPIUM BROMIDE 18 MCG/INH HANDIHALER [5] IH SCH (08:25)
[2018-03-01] MEDS: GuaiFENesin SR 600 MG ER TABLET PO SCH (08:25)
[2018-03-01] MEDS: FLUTICASONE/VILANTEROL 200-25 MCG/INH INHALER [14] IH SCH (08:25)
[2018-03-01] MEDS: AmLODIPine BESYLATE 10 MG TABLET PO SCH (08:26)
[2018-03-01] MEDS: BENZTROPINE MESYLATE 0.5 MG TABLET PO SCH (08:26)
[2018-03-01] MEDS: OMEPRAZOLE 20 MG CAPSULE PO SCH (08:26)
[2018-03-01 09:24] VITALS: BP 129/64
[2018-03-01] MEDS ORDERED: BENZ0.5T44 PO (12:03)
[2018-03-01] MEDS ORDERED: ZIPR60CA2 PO (12:03)
== END 2018-03-01 14:30 | disposition home or self-care (01) | DRG 885 ==
LOC: EMS 23:06 → 3EX 02-19 02:00
PROVIDERS: ADMIT Psychiatry & Neurology Psychiatry
DX: F20.0 Paranoid schizophrenia (principal); N17.9 Acute kidney failure, unspecified; J18.9 Pneumonia, unspecified organism; J44.0 Chronic obstructive pulmonary disease with (acute) lower respiratory infection; E78.00 Pure hypercholesterolemia, unspecified; E78.5 Hyperlipidemia, unspecified; E87.5 Hyperkalemia; F17.210 Nicotine dependence, cigarettes, uncomplicated; D64.9 Anemia, unspecified; I10 Essential (primary) hypertension; K21.9 Gastro-esophageal reflux disease without esophagitis; M19.90 Unspecified osteoarthritis, unspecified site; R26.81 Unsteadiness on feet; Z88.0 Allergy status to penicillin; Z71.6 Tobacco abuse counseling; Z90.5 Acquired absence of kidney
CPT/HCPCS: 80307; 84443; G0378; G0480

== ENCOUNTER 2018-07-03 12:09 | Inpatient (IN) | payer MEDICARE ==
[~2018-07-03] VITALS: Ht 162.6 cm; Wt 59.1 kg
[2018-07-03] MEDS ORDERED: TEMA15CA PO (12:57)
[2018-07-03] MEDS ORDERED: OMEP20 PO (12:57)
[2018-07-03] MEDS ORDERED: RISP.5 PO (12:57)
[2018-07-03] MEDS ORDERED: LORazepam 2 MG/ML VIAL IM ONE ×2 (13:45→16:30)
[2018-07-03] MEDS ORDERED: HALOPERIDOL LACTATE 5 MG/ML VIAL IM ONE ×2 (13:45→16:30)
[2018-07-03] MEDS ORDERED: DiphenhydrAMINE HCL 50 MG/ML VIAL IM ONE (13:45)
[2018-07-03] MEDS: MAGNESIUM SULFATE 2 GM, MVI, ADULT NO.1 WITH VIT K 10 ML, THIAMINE HCL 100 MG, FOLIC AC... IV ONE ×10 (16:02→17:14)
[2018-07-03] MEDS: SODIUM CHLORIDE 0.9% 1,000 ML IV ONE ×2 (16:04→16:43)
[2018-07-03 16:12] LABS: BASOPHILS % (AUTO) 1.4 % (0.0-2.0); EOSINOPHILS % (AUTO) 1.7 % (1.0-6.0); HEMATOCRIT 34.4 % (36-46); HEMOGLOBIN 11.2 g/dL (12.0-16.0); LYMPHOCYTES # (AUTO) 1.1 K/uL (1.0-4.8); LYMPHOCYTES % (AUTO) 15.4 % (22.0-44.0); MEAN CORPUSCULAR HEMOGLOBIN 26.3 pg (26.0-34.0); MEAN CORPUSCULAR HGB CONC 32.5 G/dL (31.0-37.0); MEAN CORPUSCULAR VOLUME 81 fL (80-100); MONOCYTES # (AUTO) 0.5 K/uL (0.1-1.0); MONOCYTES % (AUTO) 7.6 % (2.0-9.0); NEUTROPHILS # (AUTO) 5.2 K/uL (1.8-7.7); NEUTROPHILS % (AUTO) 73.9 % (40.0-70.0); PLATELET COUNT (AUTO) 254 K/uL (150-450); RED BLOOD CELL COUNT(AUTO) 4.26 MIL/uL (4.00-5.20); RED CELL DISTRIBUTION WIDTH 16.2 % (11.5-14.5)
[2018-07-03 16:47] LABS: ANION GAP 7 mmol/L (8-16); CALCIUM, TOTAL 8.7 mg/dL (8.8-10.5); CARBON DIOXIDE 28 mmol/L (22-29); CHLORIDE 107 mmol/L (98-107); GLOMERULAR FILTR. RATE CALC 55 mL/min (>60); GLUCOSE,RANDOM 80 mg/dL (70-110); SODIUM SERUM 142 mmol/L (136-145); UREA NITROGEN, BLOOD 20 mg/dL (7-18)
[2018-07-03 16:53] LABS: ALANINE AMINOTRANSFERASE 28 U/L (12-78); ALBUMIN 3.2 g/dL (3.4-5.0); ALKALINE PHOSPHATASE 98 U/L (46-116); ASPARTATE AMINOTRANSFERASE 26 U/L (15-37); BILIRUBIN,TOTAL 0.3 mg/dL (0.1-1.0); TOTAL PROTEIN, SERUM 6.2 g/dL (6.4-8.2)
[2018-07-03] MEDS ORDERED: HALOPERIDOL 5 MG TABLET PO PRN (17:00)
[2018-07-03] MEDS ORDERED: ZOLPIDEM TARTRATE 10 MG TABLET PO PRN (17:00)
[2018-07-03] MEDS ORDERED: ALBUTEROL SULFATE 2.5 MG/0.5 ML NEB SOLUTION NEB ONE (19:15)
[2018-07-03] MEDS ORDERED: IPRATROPIUM BROMIDE 0.5 MG/2.5 ML NEB SOLUTION NEB ONE (19:15)
[2018-07-03] MEDS ORDERED: PredniSONE 20 MG TABLET PO ONE (19:15)
[2018-07-03] MEDS ORDERED: 0.9% SODIUM CHLORIDE 5 ML NEB SOLUTION NEB ONE (19:40)
[2018-07-03] MEDS ORDERED: FLUMAZENIL 0.1 MG/ML 5 ML VIAL IVP STA (20:44)
[2018-07-03] MEDS ORDERED: LEVOFLOXACIN 750 MG/D5% WATER 150 ML IV ONE (22:45)
[2018-07-04] MEDS ORDERED: 0.9% SODIUM CHLORIDE 10 ML SYRINGE IVP PRN (02:15)
[2018-07-04] MEDS ORDERED: MAGNESIUM HYDROXIDE SUSPENSION 30 ML UDCUP PO PRN (02:15)
[2018-07-04] MEDS ORDERED: ONDANSETRON HCL 4 MG/2 ML VIAL IVP PRN (02:15)
[2018-07-04] MEDS ORDERED: LORazepam 2 MG/ML VIAL IVP ONE (02:15)
[2018-07-04] MEDS ORDERED: BISACODYL 10 MG RECTAL RECTAL SUPPOSITORY PR PRN (02:15)
[2018-07-04] MEDS ORDERED: ALBUTEROL SULFATE 2.5 MG/0.5 ML NEB SOLUTION NEB PRN (02:15)
[2018-07-04] MEDS: LEVOFLOXACIN 500 MG/D5% WATER 100 ML IV SCH (02:21)
[2018-07-04 05:11] LABS: BASOPHILS % (AUTO) 1.3 % (0.0-2.0); EOSINOPHILS % (AUTO) 1.8 % (1.0-6.0); HEMATOCRIT 31.1 % (36-46); HEMOGLOBIN 9.9 g/dL (12.0-16.0); LYMPHOCYTES # (AUTO) 0.9 K/uL (1.0-4.8); MEAN CORPUSCULAR HEMOGLOBIN 26.1 pg (26.0-34.0); MEAN CORPUSCULAR HGB CONC 31.7 G/dL (31.0-37.0); MEAN CORPUSCULAR VOLUME 82 fL (80-100); MONOCYTES # (AUTO) 0.5 K/uL (0.1-1.0); MONOCYTES % (AUTO) 8.8 % (2.0-9.0); NEUTROPHILS # (AUTO) 4.2 K/uL (1.8-7.7); NEUTROPHILS % (AUTO) 73.1 % (40.0-70.0); PLATELET COUNT (AUTO) 216 K/uL (150-450); RED BLOOD CELL COUNT(AUTO) 3.78 MIL/uL (4.00-5.20); RED CELL DISTRIBUTION WIDTH 15.9 % (11.5-14.5)
[2018-07-04 05:20] LABS: ANION GAP 9 mmol/L (8-16); CALCIUM, TOTAL 8.3 mg/dL (8.8-10.5); CARBON DIOXIDE 25 mmol/L (22-29); CHLORIDE 107 mmol/L (98-107); CREATININE 0.89 mg/dL (0.60-1.30); GLOMERULAR FILTR. RATE CALC > 60 mL/min (>60); GLUCOSE,RANDOM 82 mg/dL (70-110); POTASSIUM 3.9 mmol/L (3.5-5.1); SODIUM SERUM 141 mmol/L (136-145); UREA NITROGEN, BLOOD 14 mg/dL (7-18)
[2018-07-04] MEDS ORDERED: SODIUM CHLORIDE 0.9% 1,000 ML IV ONE (06:15)
[2018-07-04] MEDS: ACETAMINOPHEN 325 MG TABLET PO PRN ×2 (07:49→08:26)
[2018-07-04] MEDS: PANTOPRAZOLE SODIUM 40 MG DR TABLET PO SCH (07:49)
[2018-07-04] MEDS: LORazepam 2 MG TABLET PO PRN ×3 (08:25→21:00)
[2018-07-04] MEDS: IPRATROPIUM BROMIDE 0.5 MG/2.5 ML NEB SOLUTION NEB SCH ×3 (08:26→19:47)
[2018-07-04] MEDS: ALBUTEROL SULFATE 2.5 MG/0.5 ML NEB SOLUTION NEB SCH ×3 (08:26→19:47)
[2018-07-04 09:29] VITALS: BP 145/61
[2018-07-04 11:43] VITALS: BP 145/69
[2018-07-04 15:50] VITALS: BP 140/65
[2018-07-04] MEDS: ZIPRASIDONE HCL 40 MG CAPSULE PO SCH (18:00)
[2018-07-04 19:15] VITALS: BP 132/82
[2018-07-04 23:45] VITALS: BP 118/76
[2018-07-05] MEDS: LEVOFLOXACIN 500 MG/D5% WATER 100 ML IV SCH (02:36)
[2018-07-05] MEDS: IPRATROPIUM BROMIDE 0.5 MG/2.5 ML NEB SOLUTION NEB SCH ×4 (02:44→20:13)
[2018-07-05] MEDS: ALBUTEROL SULFATE 2.5 MG/0.5 ML NEB SOLUTION NEB SCH ×4 (02:45→20:12)
[2018-07-05 04:00] VITALS: BP 126/78
[2018-07-05 08:00] VITALS: BP 121/74
[2018-07-05] MEDS: ZIPRASIDONE HCL 40 MG CAPSULE PO SCH ×3 (08:00→18:00)
[2018-07-05] MEDS: IPRATROPIUM BROMIDE 0.5 MG/2.5 ML NEB SOLUTION NEB PRN (08:19)
[2018-07-05] MEDS: PANTOPRAZOLE SODIUM 40 MG DR TABLET PO SCH ×2 (09:00→09:06)
[2018-07-05 12:00] VITALS: BP 131/73
[2018-07-05 16:00] VITALS: BP 127/72
[2018-07-05 19:58] VITALS: BP 116/47
[2018-07-05 23:05] VITALS: BP 148/65
[2018-07-06] VITALS (7 sets, daily range): BP systolic 127–159; BP diastolic 54–75
[2018-07-06] MEDS: LEVOFLOXACIN 500 MG/D5% WATER 100 ML IV SCH (02:10)
[2018-07-06] MEDS: IPRATROPIUM BROMIDE 0.5 MG/2.5 ML NEB SOLUTION NEB SCH ×4 (02:51→19:16)
[2018-07-06] MEDS: ALBUTEROL SULFATE 2.5 MG/0.5 ML NEB SOLUTION NEB SCH ×4 (02:51→19:16)
[2018-07-06] MEDS: PANTOPRAZOLE SODIUM 40 MG DR TABLET PO SCH (08:00)
[2018-07-06] MEDS: ZIPRASIDONE HCL 40 MG CAPSULE PO SCH ×2 (08:01→18:02)
[2018-07-06] MEDS ORDERED: LEVO25VI4 IV (14:59)
[2018-07-06] MEDS ORDERED: BENZ-51 PO (14:59)
[2018-07-06] MEDS: LORazepam 2 MG TABLET PO PRN ×2 (15:27→21:23)
[2018-07-07] MEDS: ALBUTEROL SULFATE 2.5 MG/0.5 ML NEB SOLUTION NEB SCH ×2 (01:31→08:22)
[2018-07-07] MEDS: IPRATROPIUM BROMIDE 0.5 MG/2.5 ML NEB SOLUTION NEB SCH ×2 (01:31→08:22)
[2018-07-07] MEDS: LORazepam 2 MG TABLET PO PRN (03:05)
[2018-07-07 03:44] VITALS: BP 132/66
[2018-07-07] MEDS: IPRATROPIUM BROMIDE 0.5 MG/2.5 ML NEB SOLUTION NEB PRN (04:57)
[2018-07-07 07:22] VITALS: BP 121/57
[2018-07-07] MEDS: ZIPRASIDONE HCL 40 MG CAPSULE PO SCH (08:38)
[2018-07-07] MEDS: PANTOPRAZOLE SODIUM 40 MG DR TABLET PO SCH (08:38)
[2018-07-07] MEDS ORDERED: LEVOFLOXACIN 500 MG TABLET PO SCH (09:00)
== END 2018-07-07 12:10 | disposition home or self-care (01) | DRG 193 ==
LOC: EMS 12:09 → UNDOADMIN 16:41 → 3EC 16:41 → 5N 07-04 05:30
PROVIDERS: ADMIT Internal Medicine; ATTEND Internal Medicine
DX: J18.9 Pneumonia, unspecified organism (principal); J96.01 Acute respiratory failure with hypoxia; J44.0 Chronic obstructive pulmonary disease with (acute) lower respiratory infection; F20.0 Paranoid schizophrenia; K21.9 Gastro-esophageal reflux disease without esophagitis; F10.10 Alcohol abuse, uncomplicated; Y90.9 Presence of alcohol in blood, level not specified; F41.9 Anxiety disorder, unspecified; E78.00 Pure hypercholesterolemia, unspecified; I10 Essential (primary) hypertension; E78.5 Hyperlipidemia, unspecified; F31.9 Bipolar disorder, unspecified; Z88.0 Allergy status to penicillin; Z91.14 Patient's other noncompliance with medication regimen
CPT/HCPCS: 84145; 86738; 87040; 92610; 94640; 99291; G0378; G0480; J1200; J1630; J1956; J2060; J3411; J3475; J3490; J7030

== ENCOUNTER 2018-10-25 12:37 | Inpatient (IN) | payer MEDICARE ==
[~2018-10-25] VITALS: Ht 162.6 cm; Wt 56.1 kg
[~2018-10-25 12:37] MED LIST changes: -AMLO-512 PO; +BENZ-51 PO; -BENZ0.5T44 PO; -FLUT1BLS IH; +LEVO25VI4 IV; +RISP.5 PO; +TEMA15CA PO; -TIOT185 IH; -ZIPR60CA2 PO
[2018-10-25 14:09] LABS: BASOPHILS % (AUTO) 1.2 % (0.0-2.0); EOSINOPHILS % (AUTO) 1.3 % (1.0-6.0); HEMATOCRIT 45.3 % (36-46); HEMOGLOBIN 14.1 g/dL (12.0-16.0); LYMPHOCYTES # (AUTO) 1.5 K/uL (1.0-4.8); MEAN CORPUSCULAR HGB CONC 31.2 G/dL (31.0-37.0); MEAN CORPUSCULAR VOLUME 83 fL (80-100); MONOCYTES # (AUTO) 0.7 K/uL (0.1-1.0); MONOCYTES % (AUTO) 6.3 % (2.0-9.0); NEUTROPHILS # (AUTO) 8.4 K/uL (1.8-7.7); NEUTROPHILS % (AUTO) 77.2 % (40.0-70.0); PLATELET COUNT (AUTO) 327 K/uL (150-450); RED BLOOD CELL COUNT(AUTO) 5.44 MIL/uL (4.00-5.20); RED CELL DISTRIBUTION WIDTH 24.3 % (11.5-14.5)
[2018-10-25 14:35] LABS: ANION GAP 9 mmol/L (8-16); CARBON DIOXIDE 28 mmol/L (22-29); CHLORIDE 104 mmol/L (98-107); CREATININE 1.12 mg/dL (0.60-1.30); GLOMERULAR FILTR. RATE CALC 48 mL/min (>60); GLUCOSE,RANDOM 137 mg/dL (70-110); SODIUM SERUM 141 mmol/L (136-145); UREA NITROGEN, BLOOD 17 mg/dL (7-18)
[2018-10-25 14:40] LABS: ALANINE AMINOTRANSFERASE 20 U/L (12-78); ALBUMIN 3.5 g/dL (3.4-5.0); ALKALINE PHOSPHATASE 103 U/L (46-116); ASPARTATE AMINOTRANSFERASE 12 U/L (15-37); BILIRUBIN,TOTAL 0.3 mg/dL (0.1-1.0); TOTAL PROTEIN, SERUM 6.8 g/dL (6.4-8.2)
[2018-10-25] MEDS ORDERED: DiphenhydrAMINE HCL 25 MG CAPSULE PO ONE (15:30)
[2018-10-25] MEDS ORDERED: LORazepam 1 MG TABLET PO ONE (15:30)
[2018-10-25] MEDS ORDERED: HALOPERIDOL 5 MG TABLET PO ONE (15:30)
[2018-10-25] MEDS ORDERED: HALOPERIDOL 5 MG TABLET PO PRN (16:00)
[2018-10-25 17:20] VITALS: BP 121/60
[2018-10-25] MEDS: ZIPRASIDONE HCL 20 MG CAPSULE PO SCH (17:30)
[2018-10-25] MEDS ORDERED: PETROLATUM,WHITE 28 GM JELLY TP PRN (18:15)
[2018-10-25] MEDS ORDERED: CloNIDine HCL 0.1 MG TABLET PO PRN (18:15)
[2018-10-25] MEDS ORDERED: DOCUSATE SODIUM 100 MG CAPSULE PO PRN (18:15)
[2018-10-25] MEDS ORDERED: NICOTINE 14 MG/24 HOUR PATCH TD PRN (18:15)
[2018-10-25] MEDS ORDERED: MAG HYDROX/AL HYDROX/SIMETH ES 30 ML SUSPENSION UDCUP PO PRN (18:15)
[2018-10-25] MEDS ORDERED: MAGNESIUM HYDROXIDE SUSPENSION 30 ML UDCUP PO PRN (18:15)
[2018-10-25] MEDS ORDERED: ACETAMINOPHEN 325 MG TABLET PO PRN (18:15)
[2018-10-25] MEDS ORDERED: ONDANSETRON HCL 4 MG TABLET PO PRN (18:15)
[2018-10-26 00:15] VITALS: BP 158/74
[2018-10-26] MEDS: ALBUTEROL SULFATE HFA 90 MCG/PUFF 8 GM INHALER IH PRN ×4 (00:33→17:56)
[2018-10-26] MEDS: ZIPRASIDONE HCL 20 MG CAPSULE PO SCH ×2 (06:45→17:52)
[2018-10-26 07:20] LABS: HEMOGLOBIN A1C 5.4 % (4.5-6.2)
[2018-10-26 07:33] LABS: THYROID STIMULATING HORMONE 0.18 uIU/mL (0.36-3.74)
[2018-10-26 08:00] VITALS: BP 134/70
[2018-10-26] MEDS: OMEPRAZOLE 20 MG CAPSULE PO SCH (09:23)
[2018-10-26] MEDS: BENZONATATE 100 MG CAPSULE PO SCH ×3 (09:24→17:07)
[2018-10-26] MEDS: GuaiFENesin/D-METHORPHAN [SUGAR-FREE] 200-20MG/10 ML SYRUP UDCUP PO PRN (11:10)
[2018-10-26] MEDS ORDERED: PredniSONE 20 MG TABLET PO ONE (12:00)
[2018-10-26] MEDS: ALBUTEROL SULFATE 2.5 MG/0.5 ML NEB SOLUTION NEB PRN (12:15)
[2018-10-26] MEDS: FLUTICASONE/VILANTEROL 100-25 MCG/INH INHALER [14] IH SCH (12:51)
[2018-10-26] MEDS ORDERED: BENZONATATE 100 MG CAPSULE PO SCH (13:00)
[2018-10-27] MEDS: ALBUTEROL SULFATE HFA 90 MCG/PUFF 8 GM INHALER IH PRN ×2 (05:57→18:19)
[2018-10-27] MEDS: ZIPRASIDONE HCL 20 MG CAPSULE PO SCH ×2 (07:25→17:07)
[2018-10-27] MEDS: FLUTICASONE/VILANTEROL 100-25 MCG/INH INHALER [14] IH SCH (08:36)
[2018-10-27] MEDS ORDERED: 0.9% SODIUM CHLORIDE 5 ML NEB SOLUTION NEB ONE ×2 (08:39→16:03)
[2018-10-27] MEDS: ALBUTEROL SULFATE 2.5 MG/0.5 ML NEB SOLUTION NEB PRN ×2 (08:40→16:21)
[2018-10-27] MEDS ORDERED: OMEPRAZOLE 20 MG CAPSULE PO SCH (09:00)
[2018-10-27] MEDS: OMEPRAZOLE 20 MG CAPSULE PO SCH (11:01)
[2018-10-27] MEDS: BENZONATATE 100 MG CAPSULE PO SCH ×3 (11:01→17:06)
[2018-10-27 15:01] VITALS: BP 145/62
[2018-10-27 19:00] VITALS: BP 107/64
[2018-10-27] MEDS: ZOLPIDEM TARTRATE 10 MG TABLET PO PRN (20:13)
[2018-10-28 03:32] VITALS: BP 141/84
[2018-10-28] MEDS: ALBUTEROL SULFATE HFA 90 MCG/PUFF 8 GM INHALER IH PRN ×2 (05:00→12:21)
[2018-10-28] MEDS: ZIPRASIDONE HCL 20 MG CAPSULE PO SCH ×2 (07:13→16:30)
[2018-10-28 08:30] VITALS: BP 110/60
[2018-10-28] MEDS: FLUTICASONE/VILANTEROL 100-25 MCG/INH INHALER [14] IH SCH (09:43)
[2018-10-28] MEDS: OMEPRAZOLE 20 MG CAPSULE PO SCH (09:43)
[2018-10-28] MEDS: BENZONATATE 100 MG CAPSULE PO SCH ×3 (09:43→16:30)
[2018-10-28 13:07] VITALS: BP 146/62
[2018-10-28] MEDS: IBUPROFEN 400 MG TABLET PO PRN (13:14)
[2018-10-28 16:37] VITALS: BP 116/57
[2018-10-28] MEDS ORDERED: 0.9% SODIUM CHLORIDE 5 ML NEB SOLUTION NEB ONE (19:01)
[2018-10-28] MEDS: ALBUTEROL SULFATE 2.5 MG/0.5 ML NEB SOLUTION NEB PRN (19:06)
[2018-10-29] VITALS: BP 151/70
[2018-10-29] MEDS: IBUPROFEN 400 MG TABLET PO PRN ×2 (00:02→16:06)
[2018-10-29] MEDS: GuaiFENesin/D-METHORPHAN [SUGAR-FREE] 200-20MG/10 ML SYRUP UDCUP PO PRN ×2 (00:03→10:39)
[2018-10-29 01:00] VITALS: BP 138/83
[2018-10-29] MEDS: ALBUTEROL SULFATE HFA 90 MCG/PUFF 8 GM INHALER IH PRN ×3 (06:35→16:03)
[2018-10-29] MEDS: ZIPRASIDONE HCL 20 MG CAPSULE PO SCH ×2 (07:03→16:03)
[2018-10-29] MEDS: FLUTICASONE/VILANTEROL 100-25 MCG/INH INHALER [14] IH SCH (08:26)
[2018-10-29] MEDS: OMEPRAZOLE 20 MG CAPSULE PO SCH (08:26)
[2018-10-29] MEDS: BENZONATATE 100 MG CAPSULE PO SCH ×3 (08:27→16:03)
[2018-10-29 09:33] VITALS: BP 140/67
[2018-10-29] MEDS: ALBUTEROL SULFATE 2.5 MG/0.5 ML NEB SOLUTION NEB PRN (09:50)
[2018-10-29 16:06] VITALS: BP 160/73
[2018-10-30] MEDS: IBUPROFEN 400 MG TABLET PO PRN (03:16)
[2018-10-30] MEDS: LORazepam 2 MG TABLET PO PRN ×2 (03:16→12:17)
[2018-10-30 05:06] VITALS: BP 159/79
[2018-10-30] MEDS: ZIPRASIDONE HCL 20 MG CAPSULE PO SCH ×2 (07:21→17:32)
[2018-10-30] MEDS: FLUTICASONE/VILANTEROL 100-25 MCG/INH INHALER [14] IH SCH (08:05)
[2018-10-30] MEDS: BENZONATATE 100 MG CAPSULE PO SCH ×3 (08:05→16:01)
[2018-10-30] MEDS: OMEPRAZOLE 20 MG CAPSULE PO SCH (08:05)
[2018-10-30 09:00] VITALS: BP 106/56
[2018-10-30] MEDS: ALBUTEROL SULFATE HFA 90 MCG/PUFF 8 GM INHALER IH PRN ×2 (10:48→20:56)
[2018-10-30] MEDS: FLUoxetine HCL 10 MG CAPSULE PO SCH (13:52)
[2018-10-30] MEDS: GuaiFENesin/D-METHORPHAN [SUGAR-FREE] 200-20MG/10 ML SYRUP UDCUP PO PRN (14:30)
[2018-10-30] MEDS ORDERED: 0.9% SODIUM CHLORIDE 5 ML NEB SOLUTION NEB ONE (16:24)
[2018-10-30 16:25] VITALS: BP 132/71
[2018-10-30] MEDS: ALBUTEROL SULFATE 2.5 MG/0.5 ML NEB SOLUTION NEB PRN (16:34)
[2018-10-30] MEDS: LOPERAMIDE HCL 2 MG CAPSULE PO PRN (17:05)
[2018-10-31 00:14] VITALS: BP 147/67
[2018-10-31] MEDS: IBUPROFEN 400 MG TABLET PO PRN (04:43)
[2018-10-31] MEDS: ZIPRASIDONE HCL 20 MG CAPSULE PO SCH ×2 (06:52→16:06)
[2018-10-31] MEDS: FLUoxetine HCL 10 MG CAPSULE PO SCH (08:02)
[2018-10-31] MEDS: OMEPRAZOLE 20 MG CAPSULE PO SCH (08:02)
[2018-10-31] MEDS: LOPERAMIDE HCL 2 MG CAPSULE PO PRN (08:02)
[2018-10-31] MEDS: FLUTICASONE/VILANTEROL 100-25 MCG/INH INHALER [14] IH SCH (08:02)
[2018-10-31] MEDS: ALBUTEROL SULFATE HFA 90 MCG/PUFF 8 GM INHALER IH PRN ×2 (08:04→14:00)
[2018-10-31] MEDS: BENZONATATE 100 MG CAPSULE PO SCH ×3 (08:27→16:06)
[2018-10-31 09:19] VITALS: BP 132/74
[2018-10-31] MEDS: GuaiFENesin/D-METHORPHAN [SUGAR-FREE] 200-20MG/10 ML SYRUP UDCUP PO PRN (13:15)
[2018-10-31 16:08] VITALS: BP 145/78
[2018-10-31] MEDS: LORazepam 1 MG TABLET PO PRN (17:19)
[2018-11-01] MEDS: ZIPRASIDONE HCL 20 MG CAPSULE PO SCH ×2 (06:38→16:36)
[2018-11-01] MEDS: ALBUTEROL SULFATE HFA 90 MCG/PUFF 8 GM INHALER IH PRN (07:23)
[2018-11-01] MEDS: LORazepam 1 MG TABLET PO PRN (07:23)
[2018-11-01] MEDS: FLUoxetine HCL 10 MG CAPSULE PO SCH (08:14)
[2018-11-01] MEDS: OMEPRAZOLE 20 MG CAPSULE PO SCH (08:14)
[2018-11-01] MEDS: FLUTICASONE/VILANTEROL 100-25 MCG/INH INHALER [14] IH SCH (08:14)
[2018-11-01] MEDS: BENZONATATE 100 MG CAPSULE PO SCH ×3 (08:14→16:36)
[2018-11-01 09:10] VITALS: BP 125/62
[2018-11-01] MEDS: GuaiFENesin/D-METHORPHAN [SUGAR-FREE] 200-20MG/10 ML SYRUP UDCUP PO PRN (11:36)
[2018-11-01] MEDS ORDERED: 0.9% SODIUM CHLORIDE 5 ML NEB SOLUTION NEB ONE (12:06)
[2018-11-01] MEDS: ALBUTEROL SULFATE 2.5 MG/0.5 ML NEB SOLUTION NEB PRN (12:12)
[2018-11-01] MEDS ORDERED: IPRATROPIUM BROMIDE 0.5 MG/2.5 ML NEB SOLUTION NEB PRN (15:45)
[2018-11-01 16:09] LABS: APPEARANCE,URINE CLOUDY (CLEAR); BILIRUBIN,URINE NEGATIVE (NEGATIVE); GLUCOSE, URINE (UA) NEGATIVE (NEGATIVE); KETONES,URINE NEGATIVE (NEGATIVE); LEUKOCYTE ESTERASE ,URINE MODERATE (NEGATIVE); NITRATE,URINE POSITIVE (NEGATIVE); OCCULT BLOOD,URINE SMALL (NEGATIVE); PH,URINE 5.5 (5.0-8.0); PROTEIN,URINE SEE CONFIRM (NEGATIVE)
[2018-11-01 16:16] LABS: SULFOSALICYLIC ACID,URINE 2+ (Negative)
[2018-11-01 16:19] LABS: AMPHET/METH SCREEN,URINE NEGATIVE (NEGATIVE); BARBITURATE SCREEN, URINE NEGATIVE (NEGATIVE); BENZODIAZEPINES SCREEN,URINE NEGATIVE (NEGATIVE); CANNABINOID SCREEN,URINE NEGATIVE (NEGATIVE); COCAINE SCREEN,URINE NEGATIVE (NEGATIVE); OPIATE SCREEN,URINE NEGATIVE (NEGATIVE)
[2018-11-01 16:21] LABS: BACTERIA,URINE Many /HPF (None Seen); WBC,URINE 51-100 /HPF (0-5)
[2018-11-01 16:22] LABS: SQUAMOUS EPITHELIAL CELL,UR Moderate /LPF (None Seen)
[2018-11-01 16:27] LABS: METHADONE SCREEN, URINE NEGATIVE (NEGATIVE)
[2018-11-01 16:28] LABS: PHENCYCLIDINE SCREEN,URINE NEGATIVE (NEGATIVE)
[2018-11-01] MEDS: PredniSONE 10 MG TABLET PO SCH (16:36)
[2018-11-02] MEDS: ALBUTEROL SULFATE HFA 90 MCG/PUFF 8 GM INHALER IH PRN ×2 (07:01→12:25)
[2018-11-02] MEDS: ZIPRASIDONE HCL 20 MG CAPSULE PO SCH ×2 (07:04→17:21)
[2018-11-02] MEDS: FLUTICASONE/VILANTEROL 100-25 MCG/INH INHALER [14] IH SCH (09:02)
[2018-11-02] MEDS: CIPROFLOXACIN HCL 250 MG TABLET PO SCH ×2 (09:03→17:08)
[2018-11-02] MEDS: BENZONATATE 100 MG CAPSULE PO SCH ×3 (09:03→17:08)
[2018-11-02] MEDS: FLUoxetine HCL 10 MG CAPSULE PO SCH (09:04)
[2018-11-02] MEDS: PredniSONE 10 MG TABLET PO SCH (09:04)
[2018-11-02] MEDS: OMEPRAZOLE 20 MG CAPSULE PO SCH (09:06)
[2018-11-02 09:34] VITALS: BP 144/75
[2018-11-02 16:52] VITALS: BP 136/70
[2018-11-02] MEDS: GuaiFENesin/D-METHORPHAN [SUGAR-FREE] 200-20MG/10 ML SYRUP UDCUP PO PRN (17:08)
[2018-11-02] MEDS: LORazepam 1 MG TABLET PO PRN (21:03)
[2018-11-03 00:55] VITALS: BP 141/74
[2018-11-03] MEDS: IBUPROFEN 400 MG TABLET PO PRN (00:55)
[2018-11-03] MEDS: ALBUTEROL SULFATE HFA 90 MCG/PUFF 8 GM INHALER IH PRN ×2 (00:56→08:03)
[2018-11-03] MEDS: ZOLPIDEM TARTRATE 10 MG TABLET PO PRN (01:27)
[2018-11-03] MEDS: ZIPRASIDONE HCL 20 MG CAPSULE PO SCH ×2 (06:39→17:20)
[2018-11-03] MEDS: FLUTICASONE/VILANTEROL 100-25 MCG/INH INHALER [14] IH SCH (08:03)
[2018-11-03] MEDS: LORazepam 1 MG TABLET PO PRN ×2 (08:04→17:20)
[2018-11-03] MEDS: FLUoxetine HCL 10 MG CAPSULE PO SCH (08:04)
[2018-11-03] MEDS: OMEPRAZOLE 20 MG CAPSULE PO SCH (08:04)
[2018-11-03] MEDS: PredniSONE 10 MG TABLET PO SCH (08:04)
[2018-11-03] MEDS: BENZONATATE 100 MG CAPSULE PO SCH ×3 (08:04→17:20)
[2018-11-03] MEDS: CIPROFLOXACIN HCL 250 MG TABLET PO SCH ×2 (08:04→17:20)
[2018-11-03 13:58] VITALS: BP 119/51
[2018-11-03 17:54] VITALS: BP 144/78
[2018-11-04] MEDS: ALBUTEROL SULFATE HFA 90 MCG/PUFF 8 GM INHALER IH PRN ×2 (01:43→08:39)
[2018-11-04 01:44] VITALS: BP 146/70
[2018-11-04] MEDS: ZIPRASIDONE HCL 20 MG CAPSULE PO SCH (06:50)
[2018-11-04 08:00] VITALS: BP 140/69
[2018-11-04] MEDS: FLUoxetine HCL 10 MG CAPSULE PO SCH (08:35)
[2018-11-04] MEDS: CIPROFLOXACIN HCL 250 MG TABLET PO SCH (08:35)
[2018-11-04] MEDS: FLUTICASONE/VILANTEROL 100-25 MCG/INH INHALER [14] IH SCH (08:36)
[2018-11-04] MEDS: BENZONATATE 100 MG CAPSULE PO SCH ×2 (08:36→12:35)
[2018-11-04] MEDS: PredniSONE 10 MG TABLET PO SCH (08:36)
[2018-11-04] MEDS: OMEPRAZOLE 20 MG CAPSULE PO SCH (08:36)
[2018-11-04] MEDS ORDERED: PROZ10 PO (14:30)
[2018-11-04] MEDS ORDERED: ZIPR20CA2 PO (14:30)
[2018-11-04] MEDS ORDERED: PRED10 PO (14:44)
[2018-11-04] MEDS ORDERED: FLUT1AER IH (14:44)
[2018-11-04] MEDS ORDERED: CIP250 PO (14:46)
== END 2018-11-04 17:00 | disposition home or self-care (01) | DRG 885 ==
LOC: EMS 12:41 → 3EX 16:06
PROVIDERS: ADMIT Psychiatry & Neurology Psychiatry; ATTEND Psychiatry & Neurology Psychiatry
DX: F25.9 Schizoaffective disorder, unspecified (principal); R45.851 Suicidal ideations; Z88.0 Allergy status to penicillin; E78.00 Pure hypercholesterolemia, unspecified; I10 Essential (primary) hypertension; J44.9 Chronic obstructive pulmonary disease, unspecified; F17.210 Nicotine dependence, cigarettes, uncomplicated; K21.9 Gastro-esophageal reflux disease without esophagitis; M19.90 Unspecified osteoarthritis, unspecified site; Z59.0 Homelessness; Z79.899 Other long term (current) drug therapy; Z90.5 Acquired absence of kidney; F10.21 Alcohol dependence, in remission
CPT/HCPCS: 80307; 83036; 84443; 87086; 94640; G0378; G0480; J3535

== ENCOUNTER 2018-12-20 00:17 | Emergency (ER) | payer MEDICARE ==
[~2018-12-20] VITALS: Ht 162.6 cm; Wt 68.2 kg
[~2018-12-20 00:17] MED LIST changes: +CIP250 PO; +FLUT1AER IH; -LEVO25VI4 IV; +PRED10 PO; +PROZ10 PO; -RISP.5 PO; -TEMA15CA PO; +ZIPR20CA2 PO
[2018-12-20] MEDS ORDERED: ONDANSETRON HCL 4 MG/2 ML VIAL IM ONE (02:15)
[2018-12-20] MEDS ORDERED: MORPHINE SULFATE 4 MG/ML SYRINGE IM ONE (02:15)
[2018-12-20 06:27] VITALS: BP 140/78
== END 2018-12-20 06:27 | disposition home or self-care (01) ==
LOC: EMS 00:19
DX: S42.202A Unspecified fracture of upper end of left humerus, initial encounter for closed fracture (principal); F17.210 Nicotine dependence, cigarettes, uncomplicated; J44.9 Chronic obstructive pulmonary disease, unspecified; F31.9 Bipolar disorder, unspecified; E78.00 Pure hypercholesterolemia, unspecified; I10 Essential (primary) hypertension; F20.9 Schizophrenia, unspecified; Z88.0 Allergy status to penicillin; W19.XXXA Unspecified fall, initial encounter; Y93.89 Activity, other specified; Y92.89 Other specified places as the place of occurrence of the external cause; Y99.8 Other external cause status
CPT/HCPCS: 29105; 71045; 73030; 73060; 73080; 73110; 96372; 99283; 99406; J2270; J2405

== ENCOUNTER 2018-12-30 10:08 | Emergency (ER) | payer MEDICARE ==
[~2018-12-30] VITALS: Ht 162.6 cm; Wt 68.2 kg
[2018-12-30 10:20] VITALS: BP 149/64
== END 2018-12-30 11:20 | disposition left against medical advice (07) ==
LOC: EMS 10:15
DX: M54.2 Cervicalgia (principal); Z53.21 Procedure and treatment not carried out due to patient leaving prior to being seen by health care provider

== ENCOUNTER 2019-05-29 09:50 | Inpatient (IN) | payer MEDICARE, MEDICAID ==
[~2019-05-29] VITALS: Ht 157.5 cm; Wt 54.3 kg
[2019-05-29] MEDS ORDERED: ROCURONIUM BROMIDE 10 MG/ML 5 ML VIAL ONE (10:14)
[2019-05-29] MEDS ORDERED: RAPID SEQUENCE KIT [RSI] 1 EACH KIT ONE (10:14)
[2019-05-29] MEDS ORDERED: PROPOFOL 1000 MG/ISO-OSM 100 ML IV ONE (10:16)
[2019-05-29] MEDS ORDERED: ACETAMINOPHEN 1000 MG/ISO-OSM 100 ML IV ONE (11:00)
[2019-05-29] MEDS ORDERED: AZITHROMYCIN 500 MG/NS 250 ML IV ONE (11:00)
[2019-05-29] MEDS ORDERED: AZTREONAM 1 GM/VIAL IM ONE (11:00)
[2019-05-29] MEDS ORDERED: SODIUM CHLORIDE 0.9% 1,000 ML IV ONE (11:00)
[2019-05-29] MEDS ORDERED: VANCOMYCIN HCL 1 GM/D5% WATER 200 ML IV ONE (11:00)
[2019-05-29] MEDS ORDERED: 0.9% SODIUM CHLORIDE 10 ML SYRINGE IVP PRN ×2 (11:00→12:15)
[2019-05-29 11:38] LABS: BASOPHILS % (AUTO) 0.3 % (0.0-2.0); EOSINOPHILS % (AUTO) 0 % (1.0-6.0); HEMATOCRIT 46.9 % (36-46); HEMOGLOBIN 15.3 g/dL (12.0-16.0); LYMPHOCYTES # (AUTO) 0.7 K/uL (1.0-4.8); LYMPHOCYTES % (AUTO) 10.5 % (22.0-44.0); MEAN CORPUSCULAR HEMOGLOBIN 30.6 pg (26.0-34.0); MEAN CORPUSCULAR HGB CONC 32.6 G/dL (31.0-37.0); MEAN CORPUSCULAR VOLUME 94 fL (80-100); MONOCYTES % (AUTO) 15.7 % (2.0-9.0); NEUTROPHILS # (AUTO) 4.9 K/uL (1.8-7.7); NEUTROPHILS % (AUTO) 73.5 % (40.0-70.0); PLATELET COUNT (AUTO) 213 K/uL (150-450); RED BLOOD CELL COUNT(AUTO) 4.99 MIL/uL (4.00-5.20); RED CELL DISTRIBUTION WIDTH 14.9 % (11.5-14.5)
[2019-05-29 11:41] LABS: ABG A-A DIFF O2 475.8 mmHg (10-20.0); ABG CARBOXYHEMOGLOBIN 3.9 % (0.0-1.5); ABG HCO3 20.7 mmol/L (22.0-26.0); ABG METHEMOGLOBIN 0.2 % (0.0-1.5); ABG OXYGEN CONTENT 19.5 mL/dL (15.0-23.0); ABG OXYGEN SATURATION 98.6 % (95.0-98.0); ABG OXYHEMOGLOBIN 94.6 % (94.0-100.0); ABG TOTAL HEMOGLOBIN 14.5 G/dL (12.0-18.0); SOURCE, BLOOD GAS ARTERIAL; TEMPERATURE, FAHRENHEIT, BG 100.9 FAHREN (96.0-98.6)
[2019-05-29 11:42] LABS: ABG PCO2 77 mmHg (35-45); ABG PH 7.149 (7.35-7.450); SITE, BLOOD GAS RT RADIAL
[2019-05-29 11:43] LABS: O2 DEVICE,BLOOD GAS VENTILATOR (ROOM AIR); PEEP,BG 5 cm H2O; VT, ABG 450 ml
[2019-05-29 11:54] LABS: CREATININE 1.45 mg/dL (0.60-1.30); POTASSIUM 4.9 mmol/L (3.5-5.1)
[2019-05-29 11:58] LABS: ALBUMIN 3.2 g/dL (3.4-5.0); BILIRUBIN,TOTAL 0.5 mg/dL (0.1-1.0); C-REACTIVE PROTEIN QUANT 20.83 mg/dL (0.00-0.30); TOTAL PROTEIN, SERUM 7.1 g/dL (6.4-8.2)
[2019-05-29] MEDS ORDERED: DEXMEDETOMIDINE HCL 200 MCG in SODIUM CHLORIDE 0.9% 48 ML IV PRN (12:00)
[2019-05-29 12:10] LABS: LACTIC ACID 1.1 mmol/L (0.4-2.0)
[2019-05-29] MEDS ORDERED: ACETAMINOPHEN 325 MG TABLET PO PRN (12:15)
[2019-05-29 12:19] LABS: D-DIMER 2.3 mg/L FEU (0.00-0.50); PROTHROMBIN TIME 10.5 SEC (9.4-11.6)
[2019-05-29] MEDS ORDERED: PROPOFOL 1000 MG/ISO-OSM 100 ML IV PRN (12:30)
[2019-05-29 12:46] LABS: INFLUENZA TYPE A NEGATIVE FOR TYPE A (NEGATIVE); INFLUENZA TYPE B NEGATIVE FOR TYPE B (NEGATIVE)
[2019-05-29 12:53] LABS: ERYTHROCYTE SEDIMENTATION RATE 40 MM/HR (0-20)
[2019-05-29] MEDS: HYDROXYCHLOROQUINE SULFATE 200 MG TABLET NG SCH ×2 (14:09→22:59)
[2019-05-29] MEDS: AZITHROMYCIN 500 MG/NS 250 ML IV SCH (15:34)
[2019-05-29 15:48] LABS: ABG A-A DIFF O2 284.7 mmHg (10-20.0); ABG BASE EXCESS -5.7 mmol/L (-2.0-3.0); ABG CARBOXYHEMOGLOBIN 1.9 % (0.0-1.5); ABG HCO3 20.1 mmol/L (22.0-26.0); ABG METHEMOGLOBIN 0.3 % (0.0-1.5); ABG OXYGEN CONTENT 18.2 mL/dL (15.0-23.0); ABG OXYGEN SATURATION 96.8 % (95.0-98.0); ABG OXYHEMOGLOBIN 94.7 % (94.0-100.0); ABG PCO2 42 mmHg (35-45); ABG PH 7.311 (7.35-7.450); ABG TOTAL HEMOGLOBIN 13.6 G/dL (12.0-18.0); PO2, ARTERIAL BG 97.2 mmHg (75.0-83.0); SOURCE, BLOOD GAS ARTERIAL; TEMPERATURE, FAHRENHEIT, BG 98.6 FAHREN (96.0-98.6)
[2019-05-29 15:50] LABS: O2 DEVICE,BLOOD GAS VENTILATOR (ROOM AIR); PEEP,BG 5 cm H2O; SITE, BLOOD GAS RT RADIAL; VT, ABG 450 ml
[2019-05-29 16:00] VITALS: BP_SYST 105; BP_DIAS 65; BP_DIAS 78; BP_DIAS 95
[2019-05-29] MEDS: RINGERS SOLUTION,LACTATED 1,000 ML IV SCH (17:30)
[2019-05-29] MEDS ORDERED: BISACODYL 10 MG RECTAL RECTAL SUPPOSITORY PR PRN (17:45)
[2019-05-29] MEDS ORDERED: ONDANSETRON HCL 4 MG/2 ML VIAL IVP PRN (17:45)
[2019-05-29] MEDS ORDERED: MAGNESIUM HYDROXIDE SUSPENSION 30 ML UDCUP PO PRN (17:45)
[2019-05-29] MEDS ORDERED: ZOLPIDEM TARTRATE 5 MG TABLET PO PRN (17:45)
[2019-05-29 18:00] VITALS: BP 102/62
[2019-05-29 20:00] VITALS: BP 104/56
[2019-05-29] MEDS ORDERED: SODIUM CHLORIDE 0.9% 250 ML IV ONE (22:54)
[2019-05-29] MEDS: ASCORBIC ACID 500 MG TABLET PO SCH (22:58)
[2019-05-29] MEDS: ZINC SULFATE 220 MG CAPSULE PO SCH (22:58)
[2019-05-29] MEDS: DOCUSATE SODIUM 100 MG CAPSULE PO SCH (22:58)
[2019-05-29] MEDS: THIAMINE HCL 100 MG/ML 2ML VIAL IVP SCH (23:00)
[2019-05-30] VITALS (8 sets, daily range): BP systolic 94–116; BP diastolic 44–56
[2019-05-30] MEDS: HEPARIN SODIUM,PORCINE 5,000 UNITS/ML VIAL SQ SCH ×4 (00:25→23:58)
[2019-05-30] MEDS: PROPOFOL 1000 MG/ISO-OSM 100 ML IV PRN ×5 (02:06→20:10)
[2019-05-30] MEDS: RINGERS SOLUTION,LACTATED 1,000 ML IV SCH ×3 (02:07→22:31)
[2019-05-30 05:36] LABS: BASOPHILS % (AUTO) 0.5 % (0.0-2.0); EOSINOPHILS % (AUTO) 0.3 % (1.0-6.0); HEMATOCRIT 43.6 % (36-46); HEMOGLOBIN 14.1 g/dL (12.0-16.0); LYMPHOCYTES # (AUTO) 1.1 K/uL (1.0-4.8); LYMPHOCYTES % (AUTO) 13.3 % (22.0-44.0); MEAN CORPUSCULAR HEMOGLOBIN 30.4 pg (26.0-34.0); MEAN CORPUSCULAR HGB CONC 32.3 G/dL (31.0-37.0); MEAN CORPUSCULAR VOLUME 94 fL (80-100); MONOCYTES # (AUTO) 1.5 K/uL (0.1-1.0); MONOCYTES % (AUTO) 17.6 % (2.0-9.0); NEUTROPHILS # (AUTO) 5.7 K/uL (1.8-7.7); NEUTROPHILS % (AUTO) 68.3 % (40.0-70.0); PLATELET COUNT (AUTO) 202 K/uL (150-450); RED BLOOD CELL COUNT(AUTO) 4.63 MIL/uL (4.00-5.20); RED CELL DISTRIBUTION WIDTH 14.7 % (11.5-14.5)
[2019-05-30 05:53] LABS: ALBUMIN 2.3 g/dL (3.4-5.0); BILIRUBIN,TOTAL 0.4 mg/dL (0.1-1.0); C-REACTIVE PROTEIN QUANT 14.5 mg/dL (0.00-0.30); CALCIUM, TOTAL 8.5 mg/dL (8.8-10.5); CREATININE 1.09 mg/dL (0.60-1.30); POTASSIUM 4.8 mmol/L (3.5-5.1); TOTAL PROTEIN, SERUM 5.5 g/dL (6.4-8.2)
[2019-05-30 06:19] LABS: D-DIMER 2.14 mg/L FEU (0.00-0.50)
[2019-05-30] MEDS: ASCORBIC ACID 500 MG TABLET PO SCH ×3 (08:24→20:09)
[2019-05-30] MEDS: ZINC SULFATE 220 MG CAPSULE PO SCH ×2 (08:24→20:09)
[2019-05-30] MEDS: PANTOPRAZOLE SODIUM 40 MG DR TABLET PO SCH (08:24)
[2019-05-30] MEDS: THIAMINE HCL 100 MG/ML 2ML VIAL IVP SCH ×2 (08:25→22:29)
[2019-05-30] MEDS: DOCUSATE SODIUM 100 MG CAPSULE PO SCH ×2 (08:25→20:10)
[2019-05-30] MEDS ORDERED: HYDROXYCHLOROQUINE SULFATE 200 MG TABLET NG SCH (09:00)
[2019-05-30] MEDS ORDERED: HYDROXYCHLOROQUINE SULFATE 200 MG TABLET NG ONE (09:00)
[2019-05-30] MEDS ORDERED: AZITHROMYCIN 250 MG TABLET PO SCH (09:00)
[2019-05-30] MEDS: CefoTEtan DISOD 2 GM/DEXTROSE 50 ML IV SCH ×2 (12:49→23:58)
[2019-05-30] MEDS: AZITHROMYCIN 500 MG/NS 250 ML IV SCH (15:10)
[2019-05-30] MEDS: HYDROXYCHLOROQUINE SULFATE 200 MG TABLET NG SCH (20:09)
[2019-05-30] MEDS: DEXMEDETOMIDINE HCL 200 MCG in SODIUM CHLORIDE 0.9% 48 ML IV PRN (20:11)
[2019-05-31] VITALS: BP 112/61
[2019-05-31] MEDS: PROPOFOL 1000 MG/ISO-OSM 100 ML IV PRN ×5 (02:56→21:53)
[2019-05-31] MEDS: DEXMEDETOMIDINE HCL 200 MCG in SODIUM CHLORIDE 0.9% 48 ML IV PRN ×2 (03:36→18:38)
[2019-05-31 04:00] VITALS: BP 102/55
[2019-05-31 06:35] LABS: BILIRUBIN,TOTAL 0.3 mg/dL (0.1-1.0); C-REACTIVE PROTEIN QUANT 17.06 mg/dL (0.00-0.30); CALCIUM, TOTAL 8.6 mg/dL (8.8-10.5); CREATININE 0.96 mg/dL (0.60-1.30); TOTAL PROTEIN, SERUM 5.2 g/dL (6.4-8.2)
[2019-05-31 08:00] VITALS: BP 114/53
[2019-05-31] MEDS: ZINC SULFATE 220 MG CAPSULE PO SCH ×2 (08:18→21:00)
[2019-05-31] MEDS: MULTIVITAMINS WITH MINERALS, THERAPEUTIC 15 ML UDCUP GT SCH (08:18)
[2019-05-31] MEDS: HEPARIN SODIUM,PORCINE 5,000 UNITS/ML VIAL SQ SCH ×2 (08:18→15:29)
[2019-05-31] MEDS: PANTOPRAZOLE SODIUM 40 MG DR TABLET PO SCH (08:19)
[2019-05-31] MEDS: THIAMINE HCL 100 MG/ML 2ML VIAL IVP SCH ×2 (08:19→21:51)
[2019-05-31] MEDS: HYDROXYCHLOROQUINE SULFATE 200 MG TABLET NG SCH (08:19)
[2019-05-31] MEDS: DOCUSATE SODIUM 100 MG CAPSULE PO SCH ×2 (08:19→21:51)
[2019-05-31] MEDS: ASCORBIC ACID 500 MG TABLET PO SCH ×3 (08:25→21:51)
[2019-05-31] MEDS: RINGERS SOLUTION,LACTATED 1,000 ML IV SCH ×2 (10:17→17:29)
[2019-05-31 12:00] VITALS: BP 131/61
[2019-05-31] MEDS: CefoTEtan DISOD 2 GM/DEXTROSE 50 ML IV SCH (12:53)
[2019-05-31 13:06] LABS: LEGIONELLA PNEUMO AG URINE Negative (Negative); ORGANISM ID Not indicated.; S PNEUMO SOURCE Urine; STREP PNEUMONIAE AG URINE Negative (Negative); STREP.PNEUMO BODY FLUID CULT. Not indicated.
[2019-05-31] MEDS: AZITHROMYCIN 500 MG/NS 250 ML IV SCH (13:55)
[2019-05-31 16:00] VITALS: BP 109/49
[2019-05-31 20:00] VITALS: BP 132/53
[2019-05-31] MEDS: HYDROCODONE/ACETAMINOPHEN 5-325 MG TABLET PO PRN (21:51)
[2019-06-01] VITALS: BP 110/54
[2019-06-01] MEDS: HEPARIN SODIUM,PORCINE 5,000 UNITS/ML VIAL SQ SCH ×3 (00:48→16:18)
[2019-06-01] MEDS: CefoTEtan DISOD 2 GM/DEXTROSE 50 ML IV SCH ×2 (00:48→12:07)
[2019-06-01] MEDS: PROPOFOL 1000 MG/ISO-OSM 100 ML IV PRN ×4 (03:08→19:43)
[2019-06-01 04:00] VITALS: BP 117/52
[2019-06-01] MEDS: HYDROCODONE/ACETAMINOPHEN 5-325 MG TABLET PO PRN (04:16)
[2019-06-01] MEDS: RINGERS SOLUTION,LACTATED 1,000 ML IV SCH (04:17)
[2019-06-01 06:23] LABS: BASOPHILS % (AUTO) 0.9 % (0.0-2.0); EOSINOPHILS % (AUTO) 1.1 % (1.0-6.0); HEMATOCRIT 42.6 % (36-46); HEMOGLOBIN 14.1 g/dL (12.0-16.0); LYMPHOCYTES # (AUTO) 1.2 K/uL (1.0-4.8); LYMPHOCYTES % (AUTO) 14.9 % (22.0-44.0); MEAN CORPUSCULAR HEMOGLOBIN 30.8 pg (26.0-34.0); MEAN CORPUSCULAR HGB CONC 33.1 G/dL (31.0-37.0); MEAN CORPUSCULAR VOLUME 93 fL (80-100); MONOCYTES % (AUTO) 12.1 % (2.0-9.0); NEUTROPHILS # (AUTO) 5.8 K/uL (1.8-7.7); PLATELET COUNT (AUTO) 243 K/uL (150-450); RED BLOOD CELL COUNT(AUTO) 4.57 MIL/uL (4.00-5.20); RED CELL DISTRIBUTION WIDTH 15.1 % (11.5-14.5)
[2019-06-01 06:37] LABS: ALBUMIN 1.9 g/dL (3.4-5.0); BILIRUBIN,TOTAL 0.2 mg/dL (0.1-1.0); C-REACTIVE PROTEIN QUANT 13.86 mg/dL (0.00-0.30); CALCIUM, TOTAL 8.5 mg/dL (8.8-10.5); CREATININE 1.02 mg/dL (0.60-1.30); POTASSIUM 3.8 mmol/L (3.5-5.1); TOTAL PROTEIN, SERUM 5.3 g/dL (6.4-8.2)
[2019-06-01] MEDS: DOCUSATE SODIUM 100 MG CAPSULE PO SCH ×2 (08:17→20:26)
[2019-06-01] MEDS: ASCORBIC ACID 500 MG TABLET PO SCH ×2 (08:40→16:17)
[2019-06-01] MEDS: PANTOPRAZOLE SODIUM 40 MG DR TABLET PO SCH (08:40)
[2019-06-01] MEDS: THIAMINE HCL 100 MG/ML 2ML VIAL IVP SCH (08:41)
[2019-06-01] MEDS: MULTIVITAMINS WITH MINERALS, THERAPEUTIC 15 ML UDCUP GT SCH (08:41)
[2019-06-01] MEDS: ZINC SULFATE 220 MG CAPSULE PO SCH (09:00)
[2019-06-01 09:44] LABS: ERYTHROCYTE SEDIMENTATION RATE 23 MM/HR (0-20)
[2019-06-01] MEDS: AZITHROMYCIN 500 MG/NS 250 ML IV SCH (13:55)
[2019-06-01 20:00] VITALS: BP 116/54
[2019-06-02] VITALS: BP 124/54
[2019-06-02] MEDS: CefoTEtan DISOD 2 GM/DEXTROSE 50 ML IV SCH ×2 (00:05→12:33)
[2019-06-02] MEDS: HEPARIN SODIUM,PORCINE 5,000 UNITS/ML VIAL SQ SCH ×3 (00:05→15:53)
[2019-06-02] MEDS: PROPOFOL 1000 MG/ISO-OSM 100 ML IV PRN ×5 (00:06→21:21)
[2019-06-02 04:00] VITALS: BP 128/56
[2019-06-02 05:58] LABS: BASOPHILS % (AUTO) 0.6 % (0.0-2.0); EOSINOPHILS % (AUTO) 1.5 % (1.0-6.0); HEMATOCRIT 39.4 % (36-46); HEMOGLOBIN 12.9 g/dL (12.0-16.0); LYMPHOCYTES % (AUTO) 11.1 % (22.0-44.0); MEAN CORPUSCULAR HEMOGLOBIN 30.4 pg (26.0-34.0); MEAN CORPUSCULAR HGB CONC 32.9 G/dL (31.0-37.0); MEAN CORPUSCULAR VOLUME 92 fL (80-100); MONOCYTES # (AUTO) 0.9 K/uL (0.1-1.0); MONOCYTES % (AUTO) 9.7 % (2.0-9.0); NEUTROPHILS # (AUTO) 7.1 K/uL (1.8-7.7); NEUTROPHILS % (AUTO) 77.1 % (40.0-70.0); PLATELET COUNT (AUTO) 270 K/uL (150-450); RED BLOOD CELL COUNT(AUTO) 4.26 MIL/uL (4.00-5.20); RED CELL DISTRIBUTION WIDTH 15.2 % (11.5-14.5)
[2019-06-02 05:59] LABS: ANION GAP 4 mmol/L (8-16); CALCIUM, TOTAL 8.6 mg/dL (8.8-10.5); CARBON DIOXIDE 32 mmol/L (22-29); CHLORIDE 111 mmol/L (98-107); CREATININE 0.81 mg/dL (0.60-1.30); GLOMERULAR FILTR. RATE CALC > 60 mL/min (>60); GLUCOSE,RANDOM 109 mg/dL (70-110); POTASSIUM 3.4 mmol/L (3.5-5.1); SODIUM SERUM 147 mmol/L (136-145); UREA NITROGEN, BLOOD 14 mg/dL (7-18)
[2019-06-02 08:00] VITALS: BP 137/60
[2019-06-02] MEDS: DOCUSATE SODIUM 100 MG CAPSULE PO SCH ×2 (09:00→21:00)
[2019-06-02] MEDS: MULTIVITAMINS WITH MINERALS, THERAPEUTIC 15 ML UDCUP GT SCH (10:15)
[2019-06-02] MEDS: PANTOPRAZOLE SODIUM 40 MG DR TABLET PO SCH (10:16)
[2019-06-02] MEDS: DEXMEDETOMIDINE HCL 200 MCG in SODIUM CHLORIDE 0.9% 48 ML IV PRN (10:19)
[2019-06-02 12:00] VITALS: BP 129/66
[2019-06-02] MEDS: AZITHROMYCIN 500 MG/NS 250 ML IV SCH (13:57)
[2019-06-02 16:00] VITALS: BP 124/60
[2019-06-02] MEDS ORDERED: POTASSIUM CHLORIDE 20 MEQ ER TABLET PO PRN (17:45)
[2019-06-02] MEDS: POTASSIUM CHL 10 MEQ/WATER 50 ML IV PRN ×4 (18:03→21:26)
[2019-06-02 20:00] VITALS: BP 132/62
[2019-06-03] VITALS: BP 129/57
[2019-06-03] MEDS: HEPARIN SODIUM,PORCINE 5,000 UNITS/ML VIAL SQ SCH ×4 (00:14→23:44)
[2019-06-03] MEDS: CefoTEtan DISOD 2 GM/DEXTROSE 50 ML IV SCH ×3 (00:15→23:45)
[2019-06-03] MEDS: PROPOFOL 1000 MG/ISO-OSM 100 ML IV PRN ×5 (01:16→23:44)
[2019-06-03 04:00] VITALS: BP 136/62
[2019-06-03 05:50] LABS: BASOPHILS % (AUTO) 0.6 % (0.0-2.0); HEMATOCRIT 39.7 % (36-46); HEMOGLOBIN 13.2 g/dL (12.0-16.0); LYMPHOCYTES # (AUTO) 1.1 K/uL (1.0-4.8); LYMPHOCYTES % (AUTO) 11.7 % (22.0-44.0); MEAN CORPUSCULAR HEMOGLOBIN 30.6 pg (26.0-34.0); MEAN CORPUSCULAR HGB CONC 33.4 G/dL (31.0-37.0); MEAN CORPUSCULAR VOLUME 92 fL (80-100); MONOCYTES # (AUTO) 0.8 K/uL (0.1-1.0); MONOCYTES % (AUTO) 8.5 % (2.0-9.0); NEUTROPHILS # (AUTO) 7.4 K/uL (1.8-7.7); NEUTROPHILS % (AUTO) 77.2 % (40.0-70.0); PLATELET COUNT (AUTO) 287 K/uL (150-450); RED BLOOD CELL COUNT(AUTO) 4.33 MIL/uL (4.00-5.20); RED CELL DISTRIBUTION WIDTH 14.8 % (11.5-14.5)
[2019-06-03 06:13] LABS: ANION GAP 4 mmol/L (8-16); CALCIUM, TOTAL 8.8 mg/dL (8.8-10.5); CARBON DIOXIDE 31 mmol/L (22-29); CHLORIDE 110 mmol/L (98-107); GLOMERULAR FILTR. RATE CALC > 60 mL/min (>60); GLUCOSE,RANDOM 111 mg/dL (70-110); POTASSIUM 3.8 mmol/L (3.5-5.1); SODIUM SERUM 145 mmol/L (136-145); UREA NITROGEN, BLOOD 14 mg/dL (7-18)
[2019-06-03 08:00] VITALS: BP 151/62
[2019-06-03] MEDS: DOCUSATE SODIUM 100 MG CAPSULE PO SCH ×2 (09:00→21:00)
[2019-06-03] MEDS: MULTIVITAMINS WITH MINERALS, THERAPEUTIC 15 ML UDCUP GT SCH (09:18)
[2019-06-03] MEDS: PANTOPRAZOLE SODIUM 40 MG DR TABLET PO SCH (09:19)
[2019-06-03 12:00] VITALS: BP 132/56
[2019-06-03] MEDS: HYDROCODONE/ACETAMINOPHEN 5-325 MG TABLET PO PRN (12:25)
[2019-06-03] MEDS: ACETAMINOPHEN 325 MG TABLET PO PRN (12:26)
[2019-06-03] MEDS: MORPHINE SULFATE 2 MG/ML SYRINGE IVP PRN (12:37)
[2019-06-03] MEDS: AZITHROMYCIN 500 MG/NS 250 ML IV SCH (14:32)
[2019-06-03 16:00] VITALS: BP 121/56
[2019-06-03 20:00] VITALS: BP 119/55
[2019-06-04] VITALS (10 sets, daily range): BP systolic 110–140; BP diastolic 45–84
[2019-06-04] MEDS: HYDROCODONE/ACETAMINOPHEN 5-325 MG TABLET PO PRN ×2 (01:03→12:20)
[2019-06-04] MEDS: PROPOFOL 1000 MG/ISO-OSM 100 ML IV PRN ×5 (04:21→23:55)
[2019-06-04 07:24] LABS: ANION GAP 3 mmol/L (8-16); CALCIUM, TOTAL 8.8 mg/dL (8.8-10.5); CARBON DIOXIDE 32 mmol/L (22-29); CHLORIDE 109 mmol/L (98-107); CREATININE 0.82 mg/dL (0.60-1.30); GLOMERULAR FILTR. RATE CALC > 60 mL/min (>60); GLUCOSE,RANDOM 114 mg/dL (70-110); POTASSIUM 3.9 mmol/L (3.5-5.1); SODIUM SERUM 144 mmol/L (136-145); UREA NITROGEN, BLOOD 19 mg/dL (7-18)
[2019-06-04 07:35] LABS: BASOPHILS % (AUTO) 0.5 % (0.0-2.0); EOSINOPHILS % (AUTO) 2.7 % (1.0-6.0); HEMATOCRIT 40.9 % (36-46); HEMOGLOBIN 13.4 g/dL (12.0-16.0); LYMPHOCYTES # (AUTO) 1.3 K/uL (1.0-4.8); LYMPHOCYTES % (AUTO) 11.3 % (22.0-44.0); MEAN CORPUSCULAR HEMOGLOBIN 29.8 pg (26.0-34.0); MEAN CORPUSCULAR HGB CONC 32.8 G/dL (31.0-37.0); MEAN CORPUSCULAR VOLUME 91 fL (80-100); MONOCYTES # (AUTO) 0.8 K/uL (0.1-1.0); MONOCYTES % (AUTO) 7.4 % (2.0-9.0); NEUTROPHILS # (AUTO) 8.7 K/uL (1.8-7.7); NEUTROPHILS % (AUTO) 78.1 % (40.0-70.0); PLATELET COUNT (AUTO) 299 K/uL (150-450); RED BLOOD CELL COUNT(AUTO) 4.51 MIL/uL (4.00-5.20); RED CELL DISTRIBUTION WIDTH 15.2 % (11.5-14.5)
[2019-06-04] MEDS: HEPARIN SODIUM,PORCINE 5,000 UNITS/ML VIAL SQ SCH ×3 (08:31→23:39)
[2019-06-04] MEDS: PANTOPRAZOLE SODIUM 40 MG DR TABLET PO SCH (08:31)
[2019-06-04] MEDS: MULTIVITAMINS WITH MINERALS, THERAPEUTIC 15 ML UDCUP GT SCH (08:31)
[2019-06-04] MEDS: DOCUSATE SODIUM 100 MG CAPSULE PO SCH ×2 (09:00→21:00)
[2019-06-04] MEDS: CefoTEtan DISOD 2 GM/DEXTROSE 50 ML IV SCH ×2 (12:20→23:39)
[2019-06-04] MEDS: AZITHROMYCIN 500 MG/NS 250 ML IV SCH (14:28)
[2019-06-04] MEDS ORDERED: SODIUM CHLORIDE 0.9% 100 ML ONE (23:44)
[2019-06-05 00:01] VITALS: BP 151/58
[2019-06-05 04:00] VITALS: BP 141/53
[2019-06-05] MEDS: PROPOFOL 1000 MG/ISO-OSM 100 ML IV PRN ×4 (04:58→22:24)
[2019-06-05 05:43] LABS: BASOPHILS % (AUTO) 0.3 % (0.0-2.0); EOSINOPHILS % (AUTO) 2.7 % (1.0-6.0); HEMATOCRIT 39.3 % (36-46); HEMOGLOBIN 13.3 g/dL (12.0-16.0); LYMPHOCYTES # (AUTO) 1.1 K/uL (1.0-4.8); LYMPHOCYTES % (AUTO) 11.8 % (22.0-44.0); MEAN CORPUSCULAR HEMOGLOBIN 30.4 pg (26.0-34.0); MEAN CORPUSCULAR HGB CONC 33.8 G/dL (31.0-37.0); MEAN CORPUSCULAR VOLUME 90 fL (80-100); MONOCYTES # (AUTO) 0.8 K/uL (0.1-1.0); MONOCYTES % (AUTO) 8.3 % (2.0-9.0); NEUTROPHILS # (AUTO) 7.4 K/uL (1.8-7.7); NEUTROPHILS % (AUTO) 76.9 % (40.0-70.0); PLATELET COUNT (AUTO) 295 K/uL (150-450); RED BLOOD CELL COUNT(AUTO) 4.37 MIL/uL (4.00-5.20)
[2019-06-05 06:01] LABS: ANION GAP 3 mmol/L (8-16); C-REACTIVE PROTEIN QUANT 2.43 mg/dL (0.00-0.30); CALCIUM, TOTAL 8.8 mg/dL (8.8-10.5); CARBON DIOXIDE 33 mmol/L (22-29); CHLORIDE 107 mmol/L (98-107); CREATININE 0.77 mg/dL (0.60-1.30); GLOMERULAR FILTR. RATE CALC > 60 mL/min (>60); GLUCOSE,RANDOM 100 mg/dL (70-110); POTASSIUM 3.9 mmol/L (3.5-5.1); SODIUM SERUM 143 mmol/L (136-145); UREA NITROGEN, BLOOD 18 mg/dL (7-18)
[2019-06-05 06:09] LABS: D-DIMER 2.23 mg/L FEU (0.00-0.50)
[2019-06-05 08:00] VITALS: BP 140/59
[2019-06-05] MEDS: PANTOPRAZOLE SODIUM 40 MG DR TABLET PO SCH (09:00)
[2019-06-05] MEDS: MULTIVITAMINS WITH MINERALS, THERAPEUTIC 15 ML UDCUP GT SCH (09:00)
[2019-06-05] MEDS: HEPARIN SODIUM,PORCINE 5,000 UNITS/ML VIAL SQ SCH ×3 (09:00→23:55)
[2019-06-05] MEDS: DOCUSATE SODIUM 100 MG CAPSULE PO SCH ×2 (09:00→20:27)
[2019-06-05] MEDS: DEXMEDETOMIDINE HCL 200 MCG in SODIUM CHLORIDE 0.9% 48 ML IV PRN (11:20)
[2019-06-05] MEDS: CefoTEtan DISOD 2 GM/DEXTROSE 50 ML IV SCH ×2 (11:56→23:56)
[2019-06-05 12:00] VITALS: BP 162/73
[2019-06-05] MEDS: AZITHROMYCIN 500 MG/NS 250 ML IV SCH (14:19)
[2019-06-05 16:00] VITALS: BP 137/60
[2019-06-05 20:00] VITALS: BP 154/65
[2019-06-06] VITALS: BP 144/62
[2019-06-06] MEDS: PROPOFOL 1000 MG/ISO-OSM 100 ML IV PRN ×4 (02:58→23:00)
[2019-06-06 04:00] VITALS: BP 132/57
[2019-06-06 05:43] LABS: BASOPHILS % (AUTO) 0.6 % (0.0-2.0); EOSINOPHILS % (AUTO) 2.3 % (1.0-6.0); HEMATOCRIT 38.1 % (36-46); HEMOGLOBIN 12.9 g/dL (12.0-16.0); LYMPHOCYTES # (AUTO) 1.3 K/uL (1.0-4.8); MEAN CORPUSCULAR HEMOGLOBIN 30.1 pg (26.0-34.0); MEAN CORPUSCULAR HGB CONC 33.7 G/dL (31.0-37.0); MEAN CORPUSCULAR VOLUME 89 fL (80-100); MONOCYTES # (AUTO) 0.6 K/uL (0.1-1.0); MONOCYTES % (AUTO) 6.6 % (2.0-9.0); NEUTROPHILS # (AUTO) 7.1 K/uL (1.8-7.7); NEUTROPHILS % (AUTO) 76.5 % (40.0-70.0); PLATELET COUNT (AUTO) 283 K/uL (150-450); RED BLOOD CELL COUNT(AUTO) 4.27 MIL/uL (4.00-5.20); RED CELL DISTRIBUTION WIDTH 14.8 % (11.5-14.5)
[2019-06-06 06:03] LABS: ALANINE AMINOTRANSFERASE 26 U/L (12-78); ALBUMIN 1.7 g/dL (3.4-5.0); ALKALINE PHOSPHATASE 78 U/L (46-116); ANION GAP 4 mmol/L (8-16); ASPARTATE AMINOTRANSFERASE 26 U/L (15-37); BILIRUBIN,TOTAL 0.2 mg/dL (0.1-1.0); CALCIUM, TOTAL 8.6 mg/dL (8.8-10.5); CARBON DIOXIDE 32 mmol/L (22-29); CHLORIDE 106 mmol/L (98-107); CREATININE 0.73 mg/dL (0.60-1.30); D-DIMER 2.09 mg/L FEU (0.00-0.50); GLOMERULAR FILTR. RATE CALC > 60 mL/min (>60); GLUCOSE,RANDOM 102 mg/dL (70-110); POTASSIUM 3.9 mmol/L (3.5-5.1); SODIUM SERUM 142 mmol/L (136-145); TOTAL PROTEIN, SERUM 4.8 g/dL (6.4-8.2); UREA NITROGEN, BLOOD 20 mg/dL (7-18)
[2019-06-06 08:00] VITALS: BP 112/62
[2019-06-06] MEDS: DOCUSATE SODIUM 100 MG CAPSULE PO SCH ×2 (08:20→20:30)
[2019-06-06] MEDS: HEPARIN SODIUM,PORCINE 5,000 UNITS/ML VIAL SQ SCH ×3 (08:25→23:23)
[2019-06-06] MEDS: MULTIVITAMINS WITH MINERALS, THERAPEUTIC 15 ML UDCUP GT SCH (08:26)
[2019-06-06] MEDS: PANTOPRAZOLE SODIUM 40 MG DR TABLET PO SCH (08:26)
[2019-06-06] MEDS ORDERED: SODIUM CHLORIDE 0.9% 100 ML ONE (08:38)
[2019-06-06] MEDS: CefoTEtan DISOD 2 GM/DEXTROSE 50 ML IV SCH (11:52)
[2019-06-06 12:00] VITALS: BP 127/56
[2019-06-06] MEDS: DEXMEDETOMIDINE HCL 200 MCG in SODIUM CHLORIDE 0.9% 48 ML IV PRN (12:23)
[2019-06-06] MEDS: AZITHROMYCIN 500 MG/NS 250 ML IV SCH (13:48)
[2019-06-06 16:00] VITALS: BP 157/75
[2019-06-06] MEDS: CefTRIAXone SODIUM 2 GM in DEXTROSE 5%-WATER 50 ML IV SCH (18:38)
[2019-06-06 21:27] VITALS: BP 132/60
[2019-06-07] VITALS: BP 122/50
[2019-06-07 04:00] VITALS: BP 121/47
[2019-06-07] MEDS: PROPOFOL 1000 MG/ISO-OSM 100 ML IV PRN ×4 (04:58→22:09)
[2019-06-07 05:52] LABS: BASOPHILS % (AUTO) 0.6 % (0.0-2.0); EOSINOPHILS % (AUTO) 2.7 % (1.0-6.0); HEMATOCRIT 38.7 % (36-46); LYMPHOCYTES # (AUTO) 1.5 K/uL (1.0-4.8); LYMPHOCYTES % (AUTO) 16.9 % (22.0-44.0); MEAN CORPUSCULAR HEMOGLOBIN 29.7 pg (26.0-34.0); MEAN CORPUSCULAR HGB CONC 33.6 G/dL (31.0-37.0); MEAN CORPUSCULAR VOLUME 88 fL (80-100); MONOCYTES # (AUTO) 0.7 K/uL (0.1-1.0); NEUTROPHILS # (AUTO) 6.5 K/uL (1.8-7.7); NEUTROPHILS % (AUTO) 71.8 % (40.0-70.0); PLATELET COUNT (AUTO) 283 K/uL (150-450); RED BLOOD CELL COUNT(AUTO) 4.38 MIL/uL (4.00-5.20); RED CELL DISTRIBUTION WIDTH 14.9 % (11.5-14.5)
[2019-06-07 06:06] LABS: ANION GAP 3 mmol/L (8-16); CALCIUM, TOTAL 8.7 mg/dL (8.8-10.5); CARBON DIOXIDE 31 mmol/L (22-29); CHLORIDE 106 mmol/L (98-107); CREATININE 0.69 mg/dL (0.60-1.30); GLOMERULAR FILTR. RATE CALC > 60 mL/min (>60); GLUCOSE,RANDOM 105 mg/dL (70-110); POTASSIUM 3.8 mmol/L (3.5-5.1); SODIUM SERUM 140 mmol/L (136-145); UREA NITROGEN, BLOOD 23 mg/dL (7-18)
[2019-06-07 08:00] VITALS: BP 100/43
[2019-06-07] MEDS: MULTIVITAMINS WITH MINERALS, THERAPEUTIC 15 ML UDCUP GT SCH (09:26)
[2019-06-07] MEDS: HEPARIN SODIUM,PORCINE 5,000 UNITS/ML VIAL SQ SCH ×3 (09:26→23:34)
[2019-06-07] MEDS: PANTOPRAZOLE SODIUM 40 MG DR TABLET PO SCH (09:27)
[2019-06-07] MEDS: DOCUSATE SODIUM 100 MG CAPSULE PO SCH ×2 (09:27→22:09)
[2019-06-07] MEDS: DEXMEDETOMIDINE HCL 200 MCG in SODIUM CHLORIDE 0.9% 48 ML IV PRN (10:27)
[2019-06-07 12:00] VITALS: BP 120/49
[2019-06-07 16:00] VITALS: BP 124/54
[2019-06-07] MEDS: CefTRIAXone SODIUM 2 GM in DEXTROSE 5%-WATER 50 ML IV SCH (18:27)
[2019-06-07 20:00] VITALS: BP 132/55
[2019-06-08] VITALS: BP 117/55
[2019-06-08 04:00] VITALS: BP 118/56
[2019-06-08 05:50] LABS: BASOPHILS % (AUTO) 0.6 % (0.0-2.0); EOSINOPHILS % (AUTO) 2.3 % (1.0-6.0); HEMATOCRIT 38.4 % (36-46); LYMPHOCYTES # (AUTO) 1.6 K/uL (1.0-4.8); LYMPHOCYTES % (AUTO) 18.5 % (22.0-44.0); MEAN CORPUSCULAR HEMOGLOBIN 29.8 pg (26.0-34.0); MEAN CORPUSCULAR VOLUME 88 fL (80-100); MONOCYTES # (AUTO) 0.7 K/uL (0.1-1.0); MONOCYTES % (AUTO) 8.4 % (2.0-9.0); NEUTROPHILS # (AUTO) 6.2 K/uL (1.8-7.7); NEUTROPHILS % (AUTO) 70.2 % (40.0-70.0); PLATELET COUNT (AUTO) 291 K/uL (150-450); RED BLOOD CELL COUNT(AUTO) 4.38 MIL/uL (4.00-5.20); RED CELL DISTRIBUTION WIDTH 14.6 % (11.5-14.5)
[2019-06-08 06:09] LABS: ALANINE AMINOTRANSFERASE 26 U/L (12-78); ALBUMIN 1.7 g/dL (3.4-5.0); ALKALINE PHOSPHATASE 76 U/L (46-116); ANION GAP 8 mmol/L (8-16); ASPARTATE AMINOTRANSFERASE 22 U/L (15-37); BILIRUBIN,TOTAL 0.2 mg/dL (0.1-1.0); CALCIUM, TOTAL 8.9 mg/dL (8.8-10.5); CARBON DIOXIDE 28 mmol/L (22-29); CHLORIDE 107 mmol/L (98-107); CREATININE 0.67 mg/dL (0.60-1.30); GLOMERULAR FILTR. RATE CALC > 60 mL/min (>60); GLUCOSE,RANDOM 111 mg/dL (70-110); POTASSIUM 3.7 mmol/L (3.5-5.1); SODIUM SERUM 143 mmol/L (136-145); TOTAL PROTEIN, SERUM 5.4 g/dL (6.4-8.2); UREA NITROGEN, BLOOD 25 mg/dL (7-18)
[2019-06-08 08:00] VITALS: BP_SYST 131; BP_SYST 145; BP_DIAS 23; BP_DIAS 68
[2019-06-08] MEDS: DOCUSATE SODIUM 100 MG CAPSULE PO SCH ×2 (09:00→21:00)
[2019-06-08] MEDS: HEPARIN SODIUM,PORCINE 5,000 UNITS/ML VIAL SQ SCH ×2 (09:51→16:38)
[2019-06-08] MEDS: MULTIVITAMINS WITH MINERALS, THERAPEUTIC 15 ML UDCUP GT SCH (09:52)
[2019-06-08] MEDS: PANTOPRAZOLE SODIUM 40 MG DR TABLET PO SCH (09:52)
[2019-06-08 12:00] VITALS: BP 153/95
[2019-06-08] MEDS: NYSTATIN 500,000 UNITS/5 ML SUSPENSION UDCUP PO SCH ×4 (14:00→21:04)
[2019-06-08] MEDS ORDERED: NYSTATIN 500,000 UNITS/5 ML SUSPENSION UDCUP PO SCH (14:15)
[2019-06-08 16:00] VITALS: BP 159/79
[2019-06-08 20:00] VITALS: BP 163/78
[2019-06-08] MEDS: CefTRIAXone SODIUM 2 GM in DEXTROSE 5%-WATER 50 ML IV SCH (20:48)
[2019-06-08] MEDS: PROPOFOL 1000 MG/ISO-OSM 100 ML IV PRN (21:06)
[2019-06-09] VITALS (7 sets, daily range): BP systolic 139–164; BP diastolic 64–74
[2019-06-09] MEDS: HEPARIN SODIUM,PORCINE 5,000 UNITS/ML VIAL SQ SCH ×4 (00:24→23:17)
[2019-06-09] MEDS: PROPOFOL 1000 MG/ISO-OSM 100 ML IV PRN ×2 (01:10→07:14)
[2019-06-09 06:25] LABS: BASOPHILS % (AUTO) 0.7 % (0.0-2.0); EOSINOPHILS % (AUTO) 1.8 % (1.0-6.0); HEMATOCRIT 37.7 % (36-46); HEMOGLOBIN 12.8 g/dL (12.0-16.0); LYMPHOCYTES # (AUTO) 1.8 K/uL (1.0-4.8); LYMPHOCYTES % (AUTO) 16.6 % (22.0-44.0); MEAN CORPUSCULAR HEMOGLOBIN 30.3 pg (26.0-34.0); MEAN CORPUSCULAR HGB CONC 34.1 G/dL (31.0-37.0); MEAN CORPUSCULAR VOLUME 89 fL (80-100); MONOCYTES # (AUTO) 0.7 K/uL (0.1-1.0); MONOCYTES % (AUTO) 6.5 % (2.0-9.0); NEUTROPHILS # (AUTO) 8.1 K/uL (1.8-7.7); NEUTROPHILS % (AUTO) 74.4 % (40.0-70.0); PLATELET COUNT (AUTO) 278 K/uL (150-450); RED BLOOD CELL COUNT(AUTO) 4.24 MIL/uL (4.00-5.20); RED CELL DISTRIBUTION WIDTH 14.6 % (11.5-14.5)
[2019-06-09 06:30] LABS: ALANINE AMINOTRANSFERASE 26 U/L (12-78); ALKALINE PHOSPHATASE 74 U/L (46-116); ANION GAP 3 mmol/L (8-16); ASPARTATE AMINOTRANSFERASE 18 U/L (15-37); BILIRUBIN,TOTAL 0.2 mg/dL (0.1-1.0); CALCIUM, TOTAL 9.1 mg/dL (8.8-10.5); CARBON DIOXIDE 32 mmol/L (22-29); CHLORIDE 107 mmol/L (98-107); CREATININE 0.66 mg/dL (0.60-1.30); GLOMERULAR FILTR. RATE CALC > 60 mL/min (>60); GLUCOSE,RANDOM 100 mg/dL (70-110); POTASSIUM 3.8 mmol/L (3.5-5.1); SODIUM SERUM 142 mmol/L (136-145); TOTAL PROTEIN, SERUM 5.8 g/dL (6.4-8.2); UREA NITROGEN, BLOOD 23 mg/dL (7-18)
[2019-06-09] MEDS: MULTIVITAMINS WITH MINERALS, THERAPEUTIC 15 ML UDCUP GT SCH (08:02)
[2019-06-09] MEDS: PANTOPRAZOLE SODIUM 40 MG/VIAL IVP SCH (08:02)
[2019-06-09] MEDS: NYSTATIN 500,000 UNITS/5 ML SUSPENSION UDCUP PO SCH ×4 (08:02→20:54)
[2019-06-09] MEDS: DOCUSATE SODIUM 100 MG CAPSULE PO SCH ×2 (08:03→20:54)
[2019-06-09] MEDS: HYDROCODONE/ACETAMINOPHEN 5-325 MG TABLET PO PRN ×2 (09:41→23:15)
[2019-06-09] MEDS: DEXMEDETOMIDINE HCL 200 MCG in SODIUM CHLORIDE 0.9% 48 ML IV PRN ×2 (13:47→23:18)
[2019-06-09] MEDS: CefTRIAXone SODIUM 2 GM in DEXTROSE 5%-WATER 50 ML IV SCH (17:29)
[2019-06-09] MEDS ORDERED: SODIUM CHLORIDE 0.9% 250 ML IV ONE (20:47)
[2019-06-10] VITALS (11 sets, daily range): BP systolic 119–163; BP diastolic 52–80
[2019-06-10 04:59] LABS: BASOPHILS % (AUTO) 0.7 % (0.0-2.0); HEMOGLOBIN 13.1 g/dL (12.0-16.0); LYMPHOCYTES # (AUTO) 1.6 K/uL (1.0-4.8); LYMPHOCYTES % (AUTO) 16.5 % (22.0-44.0); MEAN CORPUSCULAR HEMOGLOBIN 29.8 pg (26.0-34.0); MEAN CORPUSCULAR HGB CONC 33.7 G/dL (31.0-37.0); MEAN CORPUSCULAR VOLUME 89 fL (80-100); MONOCYTES # (AUTO) 0.7 K/uL (0.1-1.0); MONOCYTES % (AUTO) 7.1 % (2.0-9.0); NEUTROPHILS % (AUTO) 73.7 % (40.0-70.0); PLATELET COUNT (AUTO) 317 K/uL (150-450); RED CELL DISTRIBUTION WIDTH 14.5 % (11.5-14.5)
[2019-06-10 05:27] LABS: ANION GAP 5 mmol/L (8-16); CALCIUM, TOTAL 9.1 mg/dL (8.8-10.5); CARBON DIOXIDE 31 mmol/L (22-29); CHLORIDE 106 mmol/L (98-107); CREATININE 0.61 mg/dL (0.60-1.30); GLOMERULAR FILTR. RATE CALC > 60 mL/min (>60); GLUCOSE,RANDOM 122 mg/dL (70-110); POTASSIUM 3.7 mmol/L (3.5-5.1); SODIUM SERUM 142 mmol/L (136-145); UREA NITROGEN, BLOOD 24 mg/dL (7-18)
[2019-06-10] MEDS: HYDROCODONE/ACETAMINOPHEN 5-325 MG TABLET PO PRN ×3 (05:31→18:10)
[2019-06-10] MEDS: MULTIVITAMINS WITH MINERALS, THERAPEUTIC 15 ML UDCUP GT SCH (08:55)
[2019-06-10] MEDS: HEPARIN SODIUM,PORCINE 5,000 UNITS/ML VIAL SQ SCH ×3 (08:55→23:10)
[2019-06-10] MEDS: NYSTATIN 500,000 UNITS/5 ML SUSPENSION UDCUP PO SCH ×4 (08:55→20:15)
[2019-06-10] MEDS: DEXMEDETOMIDINE HCL 200 MCG in SODIUM CHLORIDE 0.9% 48 ML IV PRN ×3 (08:55→20:01)
[2019-06-10] MEDS: PANTOPRAZOLE SODIUM 40 MG/VIAL IVP SCH (08:56)
[2019-06-10] MEDS: DOCUSATE SODIUM 100 MG CAPSULE PO SCH ×2 (08:56→20:12)
[2019-06-10] MEDS: CefTRIAXone SODIUM 2 GM in DEXTROSE 5%-WATER 50 ML IV SCH (16:45)
[2019-06-10] MEDS: OLANZapine 7.5 MG TABLET PO SCH (20:15)
[2019-06-10] MEDS: QUEtiapine FUMARATE 25 MG TABLET PO SCH (20:15)
[2019-06-10] MEDS: MORPHINE SULFATE 2 MG/ML SYRINGE IVP PRN (23:07)
[2019-06-11] VITALS: BP 138/66
[2019-06-11] MEDS: DEXMEDETOMIDINE HCL 200 MCG in SODIUM CHLORIDE 0.9% 48 ML IV PRN ×3 (01:02→19:36)
[2019-06-11] MEDS: PROPOFOL 1000 MG/ISO-OSM 100 ML IV PRN ×4 (01:04→21:15)
[2019-06-11 04:00] VITALS: BP 134/55
[2019-06-11 05:29] LABS: BASOPHILS % (AUTO) 1.6 % (0.0-2.0); EOSINOPHILS % (AUTO) 2.4 % (1.0-6.0); HEMATOCRIT 37.9 % (36-46); HEMOGLOBIN 12.9 g/dL (12.0-16.0); LYMPHOCYTES % (AUTO) 27.2 % (22.0-44.0); MEAN CORPUSCULAR HEMOGLOBIN 29.8 pg (26.0-34.0); MEAN CORPUSCULAR VOLUME 88 fL (80-100); MONOCYTES # (AUTO) 0.5 K/uL (0.1-1.0); MONOCYTES % (AUTO) 7.5 % (2.0-9.0); NEUTROPHILS # (AUTO) 4.4 K/uL (1.8-7.7); NEUTROPHILS % (AUTO) 61.3 % (40.0-70.0); PLATELET COUNT (AUTO) 325 K/uL (150-450); RED BLOOD CELL COUNT(AUTO) 4.34 MIL/uL (4.00-5.20); RED CELL DISTRIBUTION WIDTH 14.5 % (11.5-14.5)
[2019-06-11 06:25] LABS: ALANINE AMINOTRANSFERASE 19 U/L (12-78); ALBUMIN 2.1 g/dL (3.4-5.0); ALKALINE PHOSPHATASE 70 U/L (46-116); ANION GAP 6 mmol/L (8-16); ASPARTATE AMINOTRANSFERASE 12 U/L (15-37); BILIRUBIN,TOTAL 0.2 mg/dL (0.1-1.0); CALCIUM, TOTAL 9.4 mg/dL (8.8-10.5); CARBON DIOXIDE 30 mmol/L (22-29); CHLORIDE 107 mmol/L (98-107); CREATININE 0.61 mg/dL (0.60-1.30); GLOMERULAR FILTR. RATE CALC > 60 mL/min (>60); GLUCOSE,RANDOM 120 mg/dL (70-110); POTASSIUM 3.5 mmol/L (3.5-5.1); SODIUM SERUM 143 mmol/L (136-145); UREA NITROGEN, BLOOD 24 mg/dL (7-18)
[2019-06-11] MEDS: POTASSIUM CHL 10 MEQ/WATER 50 ML IV PRN ×3 (07:15→10:03)
[2019-06-11 08:00] VITALS: BP 114/52
[2019-06-11] MEDS: MULTIVITAMINS WITH MINERALS, THERAPEUTIC 15 ML UDCUP GT SCH (08:06)
[2019-06-11] MEDS: PANTOPRAZOLE SODIUM 40 MG/VIAL IVP SCH (08:06)
[2019-06-11] MEDS: HEPARIN SODIUM,PORCINE 5,000 UNITS/ML VIAL SQ SCH ×4 (08:06→21:00)
[2019-06-11] MEDS: NYSTATIN 500,000 UNITS/5 ML SUSPENSION UDCUP PO SCH ×4 (08:06→19:48)
[2019-06-11] MEDS: DOCUSATE SODIUM 100 MG CAPSULE PO SCH ×2 (08:07→19:09)
[2019-06-11] MEDS: OLANZapine 7.5 MG TABLET PO SCH ×2 (08:07→19:49)
[2019-06-11 09:59] LABS: ABG A-A DIFF O2 217.1 mmHg (10-20.0); ABG BASE EXCESS 1.5 mmol/L (-2.0-3.0); ABG CARBOXYHEMOGLOBIN 0.4 % (0.0-1.5); ABG HCO3 25.7 mmol/L (22.0-26.0); ABG METHEMOGLOBIN 0.3 % (0.0-1.5); ABG OXYGEN CONTENT 15.9 mL/dL (15.0-23.0); ABG OXYGEN SATURATION 89.8 % (95.0-98.0); ABG OXYHEMOGLOBIN 89.2 % (94.0-100.0); ABG PCO2 38 mmHg (35-45); ABG PH 7.445 (7.35-7.450); ABG TOTAL HEMOGLOBIN 12.7 G/dL (12.0-18.0); PO2, ARTERIAL BG 60.4 mmHg (75.0-83.0); SOURCE, BLOOD GAS ARTERIAL; TEMPERATURE, FAHRENHEIT, BG 98.8 FAHREN (96.0-98.6)
[2019-06-11 10:01] LABS: O2 DEVICE,BLOOD GAS VENTILATOR (ROOM AIR); PEEP,BG 5 cm H2O; SITE, BLOOD GAS LFT RADIAL; VT, ABG 450 ml
[2019-06-11 12:00] VITALS: BP 115/58
[2019-06-11] MEDS: MORPHINE SULFATE 2 MG/ML SYRINGE IVP PRN (13:54)
[2019-06-11 16:00] VITALS: BP 100/49
[2019-06-11] MEDS ORDERED: SODIUM CHLORIDE 0.9% 100 ML ONE (16:45)
[2019-06-11] MEDS: CefTRIAXone SODIUM 2 GM in DEXTROSE 5%-WATER 50 ML IV SCH (17:25)
[2019-06-11] MEDS: QUEtiapine FUMARATE 25 MG TABLET PO SCH (19:49)
[2019-06-11 20:00] VITALS: BP 102/49
[2019-06-12] VITALS: BP 101/42
[2019-06-12] MEDS: PROPOFOL 1000 MG/ISO-OSM 100 ML IV PRN ×3 (03:46→22:27)
[2019-06-12 04:00] VITALS: BP 120/58
[2019-06-12 05:19] LABS: BASOPHILS % (AUTO) 1.9 % (0.0-2.0); EOSINOPHILS % (AUTO) 3.3 % (1.0-6.0); HEMATOCRIT 37.8 % (36-46); LYMPHOCYTES # (AUTO) 1.8 K/uL (1.0-4.8); LYMPHOCYTES % (AUTO) 26.3 % (22.0-44.0); MEAN CORPUSCULAR HGB CONC 34.4 G/dL (31.0-37.0); MEAN CORPUSCULAR VOLUME 87 fL (80-100); MONOCYTES # (AUTO) 0.6 K/uL (0.1-1.0); MONOCYTES % (AUTO) 9.4 % (2.0-9.0); NEUTROPHILS # (AUTO) 4.1 K/uL (1.8-7.7); NEUTROPHILS % (AUTO) 59.1 % (40.0-70.0); PLATELET COUNT (AUTO) 350 K/uL (150-450); RED BLOOD CELL COUNT(AUTO) 4.33 MIL/uL (4.00-5.20); RED CELL DISTRIBUTION WIDTH 14.8 % (11.5-14.5)
[2019-06-12 05:41] LABS: ALANINE AMINOTRANSFERASE 20 U/L (12-78); ALBUMIN 2.2 g/dL (3.4-5.0); ALKALINE PHOSPHATASE 68 U/L (46-116); ANION GAP 5 mmol/L (8-16); ASPARTATE AMINOTRANSFERASE 13 U/L (15-37); BILIRUBIN,TOTAL 0.3 mg/dL (0.1-1.0); CALCIUM, TOTAL 9.2 mg/dL (8.8-10.5); CARBON DIOXIDE 29 mmol/L (22-29); CHLORIDE 107 mmol/L (98-107); CREATININE 0.65 mg/dL (0.60-1.30); GLOMERULAR FILTR. RATE CALC > 60 mL/min (>60); GLUCOSE,RANDOM 102 mg/dL (70-110); POTASSIUM 3.9 mmol/L (3.5-5.1); SODIUM SERUM 141 mmol/L (136-145); UREA NITROGEN, BLOOD 33 mg/dL (7-18)
[2019-06-12] MEDS: DEXMEDETOMIDINE HCL 200 MCG in SODIUM CHLORIDE 0.9% 48 ML IV PRN (06:40)
[2019-06-12 08:00] VITALS: BP 135/62
[2019-06-12] MEDS: DOCUSATE SODIUM 100 MG CAPSULE PO SCH ×2 (09:00→21:00)
[2019-06-12] MEDS: MULTIVITAMINS WITH MINERALS, THERAPEUTIC 15 ML UDCUP GT SCH (10:07)
[2019-06-12] MEDS: NYSTATIN 500,000 UNITS/5 ML SUSPENSION UDCUP PO SCH ×4 (10:07→21:10)
[2019-06-12] MEDS: PANTOPRAZOLE SODIUM 40 MG/VIAL IVP SCH (10:07)
[2019-06-12] MEDS: OLANZapine 7.5 MG TABLET PO SCH ×2 (10:08→21:10)
[2019-06-12] MEDS ORDERED: LIDOCAINE 1%/EPI 1:200,000/PF 10 ML VIAL ONE (11:20)
[2019-06-12 12:00] VITALS: BP 111/55
[2019-06-12] MEDS ORDERED: SODIUM CHLORIDE 0.9% 250 ML IV ONE (12:20)
[2019-06-12] MEDS ORDERED: LIDOCAINE/PF 1% 5 ML VIAL ONE (14:00)
[2019-06-12] MEDS ORDERED: MORPHINE SULFATE 2 MG/ML SYRINGE IM ONE (14:45)
[2019-06-12] MEDS ORDERED: ROCURONIUM BROMIDE 10 MG/ML 5 ML VIAL IVP ONE (14:45)
[2019-06-12] MEDS: HEPARIN SODIUM,PORCINE 5,000 UNITS/ML VIAL SQ SCH ×2 (15:33→23:24)
[2019-06-12] MEDS ORDERED: MORPHINE SULFATE 2 MG/ML SYRINGE IVP ONE (15:45)
[2019-06-12 16:00] VITALS: BP 111/55
[2019-06-12] MEDS: CefTRIAXone SODIUM 2 GM in DEXTROSE 5%-WATER 50 ML IV SCH (17:38)
[2019-06-12 20:00] VITALS: BP 129/73
[2019-06-12] MEDS: QUEtiapine FUMARATE 25 MG TABLET PO SCH (21:10)
[2019-06-12] MEDS: HYDROCODONE/ACETAMINOPHEN 5-325 MG TABLET PO PRN (21:11)
[2019-06-13] VITALS: BP 137/68
[2019-06-13] MEDS: MORPHINE SULFATE 2 MG/ML SYRINGE IVP PRN ×2 (00:57→13:30)
[2019-06-13] MEDS: PROPOFOL 1000 MG/ISO-OSM 100 ML IV PRN ×3 (02:46→14:30)
[2019-06-13] MEDS: HYDROCODONE/ACETAMINOPHEN 5-325 MG TABLET PO PRN ×3 (03:45→20:48)
[2019-06-13 04:00] VITALS: BP 149/75
[2019-06-13 06:19] LABS: ANION GAP 4 mmol/L (8-16); CALCIUM, TOTAL 9.2 mg/dL (8.8-10.5); CARBON DIOXIDE 29 mmol/L (22-29); CHLORIDE 108 mmol/L (98-107); CREATININE 0.77 mg/dL (0.60-1.30); GLOMERULAR FILTR. RATE CALC > 60 mL/min (>60); GLUCOSE,RANDOM 92 mg/dL (70-110); POTASSIUM 3.9 mmol/L (3.5-5.1); SODIUM SERUM 141 mmol/L (136-145); UREA NITROGEN, BLOOD 25 mg/dL (7-18)
[2019-06-13 08:00] VITALS: BP 144/76
[2019-06-13] MEDS: DOCUSATE SODIUM 100 MG CAPSULE PO SCH ×2 (08:35→20:43)
[2019-06-13] MEDS: HEPARIN SODIUM,PORCINE 5,000 UNITS/ML VIAL SQ SCH ×3 (08:43→23:49)
[2019-06-13] MEDS: OLANZapine 7.5 MG TABLET PO SCH ×2 (08:44→20:42)
[2019-06-13] MEDS: NYSTATIN 500,000 UNITS/5 ML SUSPENSION UDCUP PO SCH ×4 (08:44→20:42)
[2019-06-13] MEDS: MULTIVITAMINS WITH MINERALS, THERAPEUTIC 15 ML UDCUP GT SCH (08:44)
[2019-06-13] MEDS: PANTOPRAZOLE SODIUM 40 MG/VIAL IVP SCH (08:44)
[2019-06-13 12:00] VITALS: BP 161/65
[2019-06-13] MEDS ORDERED: LORazepam 2 MG/ML VIAL IM PRN (13:30)
[2019-06-13] MEDS: LORazepam 2 MG/ML VIAL IVP PRN ×2 (14:45→18:46)
[2019-06-13 16:00] VITALS: BP 166/79
[2019-06-13] MEDS: ACETAMINOPHEN 325 MG TABLET PO PRN (16:48)
[2019-06-13 20:00] VITALS: BP 160/73
[2019-06-13] MEDS: QUEtiapine FUMARATE 25 MG TABLET PO SCH (20:42)
[2019-06-14] VITALS (7 sets, daily range): BP systolic 139–164; BP diastolic 63–79
[2019-06-14] MEDS: HEPARIN SODIUM,PORCINE 5,000 UNITS/ML VIAL SQ SCH ×2 (08:00→15:28)
[2019-06-14] MEDS: DOCUSATE SODIUM 100 MG CAPSULE PO SCH ×2 (09:00→20:53)
[2019-06-14] MEDS: HYDROCODONE/ACETAMINOPHEN 5-325 MG TABLET PO PRN ×3 (09:14→20:53)
[2019-06-14] MEDS: PANTOPRAZOLE SODIUM 40 MG/VIAL IVP SCH (09:14)
[2019-06-14] MEDS: NYSTATIN 500,000 UNITS/5 ML SUSPENSION UDCUP PO SCH ×4 (09:15→20:52)
[2019-06-14] MEDS: MORPHINE SULFATE 2 MG/ML SYRINGE IVP PRN ×2 (09:15→15:27)
[2019-06-14] MEDS: MULTIVITAMINS WITH MINERALS, THERAPEUTIC 15 ML UDCUP GT SCH (09:15)
[2019-06-14] MEDS: OLANZapine 7.5 MG TABLET PO SCH ×2 (09:17→20:53)
[2019-06-14] MEDS ORDERED: LEVOFLOXACIN 500 MG/D5% WATER 100 ML IV ONE (15:15)
[2019-06-14] MEDS: LORazepam 2 MG/ML VIAL IVP PRN (18:25)
[2019-06-14] MEDS: QUEtiapine FUMARATE 25 MG TABLET PO SCH (20:53)
[2019-06-15] VITALS: BP 131/48
[2019-06-15] MEDS: LORazepam 2 MG/ML VIAL IVP PRN ×3 (05:12→19:00)
[2019-06-15] MEDS ORDERED: LIDOCAINE/PF 2% 5 ML VIAL IM ONE ×2 (06:02)
[2019-06-15] MEDS ORDERED: PROPOFOL 1% 20 ML VIAL IVP ONE ×2 (06:02)
[2019-06-15 08:00] VITALS: BP 140/69
[2019-06-15] MEDS: HEPARIN SODIUM,PORCINE 5,000 UNITS/ML VIAL SQ SCH ×4 (09:26→23:59)
[2019-06-15] MEDS: DOCUSATE SODIUM 100 MG CAPSULE PO SCH ×2 (09:26→20:21)
[2019-06-15] MEDS: HYDROCODONE/ACETAMINOPHEN 5-325 MG TABLET PO PRN ×2 (09:27→15:35)
[2019-06-15] MEDS: PANTOPRAZOLE SODIUM 40 MG/VIAL IVP SCH (09:27)
[2019-06-15] MEDS: NYSTATIN 500,000 UNITS/5 ML SUSPENSION UDCUP PO SCH ×4 (09:28→20:21)
[2019-06-15] MEDS: MULTIVITAMINS WITH MINERALS, THERAPEUTIC 15 ML UDCUP GT SCH (09:28)
[2019-06-15] MEDS: POVIDONE-IODINE 10% 120 ML SOLUTION TP SCH (09:30)
[2019-06-15] MEDS: OLANZapine 7.5 MG TABLET PO SCH ×2 (09:30→20:21)
[2019-06-15] MEDS: HYDROGEN PEROXIDE 473 ML SOLUTION TP SCH (09:30)
[2019-06-15 16:00] VITALS: BP 151/84
[2019-06-15] MEDS: MORPHINE SULFATE 2 MG/ML SYRINGE IVP PRN (16:50)
[2019-06-15 20:00] VITALS: BP 139/70
[2019-06-15] MEDS: QUEtiapine FUMARATE 25 MG TABLET PO SCH (20:21)
[2019-06-16] VITALS: BP 131/72
[2019-06-16] MEDS: LORazepam 2 MG/ML VIAL IVP PRN ×4 (00:01→17:16)
[2019-06-16] MEDS: HYDROCODONE/ACETAMINOPHEN 5-325 MG TABLET PO PRN ×3 (00:55→14:02)
[2019-06-16 06:02] LABS: BASOPHILS % (AUTO) 0.4 % (0.0-2.0); EOSINOPHILS % (AUTO) 2.6 % (1.0-6.0); HEMATOCRIT 38.8 % (36-46); HEMOGLOBIN 13.3 g/dL (12.0-16.0); LYMPHOCYTES # (AUTO) 1.6 K/uL (1.0-4.8); LYMPHOCYTES % (AUTO) 17.4 % (22.0-44.0); MEAN CORPUSCULAR HGB CONC 34.4 G/dL (31.0-37.0); MEAN CORPUSCULAR VOLUME 87 fL (80-100); MONOCYTES # (AUTO) 0.8 K/uL (0.1-1.0); MONOCYTES % (AUTO) 8.6 % (2.0-9.0); NEUTROPHILS # (AUTO) 6.4 K/uL (1.8-7.7); PLATELET COUNT (AUTO) 320 K/uL (150-450); RED BLOOD CELL COUNT(AUTO) 4.45 MIL/uL (4.00-5.20); RED CELL DISTRIBUTION WIDTH 15.2 % (11.5-14.5)
[2019-06-16 06:22] LABS: ALANINE AMINOTRANSFERASE 17 U/L (12-78); ALBUMIN 2.7 g/dL (3.4-5.0); ALKALINE PHOSPHATASE 75 U/L (46-116); ANION GAP 10 mmol/L (8-16); ASPARTATE AMINOTRANSFERASE 15 U/L (15-37); BILIRUBIN,TOTAL 0.4 mg/dL (0.1-1.0); CALCIUM, TOTAL 9.4 mg/dL (8.8-10.5); CARBON DIOXIDE 27 mmol/L (22-29); CHLORIDE 102 mmol/L (98-107); CREATININE 0.65 mg/dL (0.60-1.30); GLOMERULAR FILTR. RATE CALC > 60 mL/min (>60); GLUCOSE,RANDOM 128 mg/dL (70-110); POTASSIUM 3.6 mmol/L (3.5-5.1); SODIUM SERUM 139 mmol/L (136-145); TOTAL PROTEIN, SERUM 7.2 g/dL (6.4-8.2); UREA NITROGEN, BLOOD 20 mg/dL (7-18)
[2019-06-16 08:00] VITALS: BP 132/75
[2019-06-16] MEDS: MULTIVITAMINS WITH MINERALS, THERAPEUTIC 15 ML UDCUP GT SCH (08:58)
[2019-06-16] MEDS: HEPARIN SODIUM,PORCINE 5,000 UNITS/ML VIAL SQ SCH ×2 (08:58→15:37)
[2019-06-16] MEDS: PANTOPRAZOLE SODIUM 40 MG/VIAL IVP SCH (08:59)
[2019-06-16] MEDS: NYSTATIN 500,000 UNITS/5 ML SUSPENSION UDCUP PO SCH ×3 (08:59→15:37)
[2019-06-16] MEDS: DOCUSATE SODIUM 100 MG CAPSULE PO SCH (08:59)
[2019-06-16] MEDS: OLANZapine 7.5 MG TABLET PO SCH (09:00)
[2019-06-16] MEDS: POVIDONE-IODINE 10% 120 ML SOLUTION TP SCH (09:47)
[2019-06-16] MEDS: HYDROGEN PEROXIDE 473 ML SOLUTION TP SCH (09:47)
[2019-06-16 12:00] VITALS: BP 110/54
[2019-06-16 16:00] VITALS: BP 164/65
[2019-06-16] MEDS: MORPHINE SULFATE 2 MG/ML SYRINGE IVP PRN (16:00)
== END 2019-06-16 19:25 | DRG 4 ==
LOC: EMS 09:51 → ICU 12:16 → UNDOADMIN 12:58 → ICU 21:15
PROVIDERS: ADMIT Internal Medicine; ATTEND Internal Medicine
PROC: 0BH17EZ Insertion of Endotracheal Airway into Trachea, Via Natural or Artificial Opening (ICD-10-PCS; 2019-05-29)
PROC: 5A1955Z Respiratory Ventilation, Greater than 96 Consecutive Hours (ICD-10-PCS; 2019-05-29)
PROC: B54NZZA Ultrasonography of Left Upper Extremity Veins, Guidance (ICD-10-PCS; 2019-06-04)
PROC: 05HY33Z Insertion of Infusion Device into Upper Vein, Percutaneous Approach (ICD-10-PCS; 2019-06-04)
PROC: B54MZZA Ultrasonography of Right Upper Extremity Veins, Guidance (ICD-10-PCS; 2019-06-11)
PROC: 05HY33Z Insertion of Infusion Device into Upper Vein, Percutaneous Approach (ICD-10-PCS; 2019-06-11)
PROC: 0B113F4 Bypass Trachea to Cutaneous with Tracheostomy Device, Percutaneous Approach (ICD-10-PCS; principal; 2019-06-12)
PROC: 0BJ08ZZ Inspection of Tracheobronchial Tree, Via Natural or Artificial Opening Endoscopic (ICD-10-PCS; 2019-06-12)
PROC: 0DH63UZ Insertion of Feeding Device into Stomach, Percutaneous Approach (ICD-10-PCS; 2019-06-14)
DX: A41.9 Sepsis, unspecified organism (principal); J96.01 Acute respiratory failure with hypoxia; J69.0 Pneumonitis due to inhalation of food and vomit; E43 Unspecified severe protein-calorie malnutrition; J45.901 Unspecified asthma with (acute) exacerbation; J44.0 Chronic obstructive pulmonary disease with (acute) lower respiratory infection; J44.1 Chronic obstructive pulmonary disease with (acute) exacerbation; E87.0 Hyperosmolality and hypernatremia; I10 Essential (primary) hypertension; K21.9 Gastro-esophageal reflux disease without esophagitis; E87.6 Hypokalemia; H91.90 Unspecified hearing loss, unspecified ear; F20.9 Schizophrenia, unspecified; R13.10 Dysphagia, unspecified; G89.29 Other chronic pain; M54.9 Dorsalgia, unspecified; Z88.0 Allergy status to penicillin; Z90.5 Acquired absence of kidney; Z03.818 Encounter for observation for suspected exposure to other biological agents ruled out; Z87.891 Personal history of nicotine dependence; Z79.899 Other long term (current) drug therapy; Z68.21 Body mass index [BMI] 21.0-21.9, adult
CPT/HCPCS: 31500; 36245; 36569; 36600; 76937; 82728; 82805; 83605; 83615; 83735; 84132; 84145; 85379; 85384; 85651; 86140; 87040; 87070; 87081; 87205; 87449; 87635; 87804; 87899; 93005; 94002; 94003; 94640; 99291; C9113; G0378; J0131; J0456; J0696; J1644; J1956; J2001; J2060; J2270; J2405; J2704; J3370; J3411; J3480; J3490; J7030; J7050; J7060; J7120

== ENCOUNTER 2019-10-19 15:49 | Emergency (ER) | payer MEDICARE, MEDICAID ==
[~2019-10-19] VITALS: Ht 157.5 cm; Wt 52.3 kg
[~2019-10-19 15:49] MED LIST changes: -BENZ-51 PO; -CIP250 PO; -PRED10 PO
[2019-10-19] MEDS ORDERED: ACETAMINOPHEN 500 MG TABLET PO ONE (16:30)
[2019-10-19] MEDS ORDERED: CYCLOBENZAPRINE HCL 10 MG TABLET PO ONE (16:30)
[2019-10-19] MEDS ORDERED: LIDOCAINE 5% TRANSDERMAL PATCH TD ONE (16:30)
[2019-10-19 16:43] LABS: APPEARANCE,URINE TURBID (CLEAR); BILIRUBIN,URINE PRELIM. POSITIVE (NEGATIVE); GLUCOSE, URINE (UA) NEGATIVE (NEGATIVE); KETONES,URINE NEGATIVE (NEGATIVE); LEUKOCYTE ESTERASE ,URINE LARGE (NEGATIVE); NITRATE,URINE POSITIVE (NEGATIVE); OCCULT BLOOD,URINE SMALL (NEGATIVE); PH,URINE 5.5 (5.0-8.0); PROTEIN,URINE POS 1+ (NEGATIVE)
[2019-10-19 16:44] LABS: BASOPHILS % (AUTO) 1.2 % (0.0-2.0); EOSINOPHILS % (AUTO) 3.4 % (1.0-6.0); HEMATOCRIT 47.6 % (36-46); HEMOGLOBIN 15.4 g/dL (12.0-16.0); LYMPHOCYTES % (AUTO) 26.5 % (22.0-44.0); MEAN CORPUSCULAR HEMOGLOBIN 28.7 pg (26.0-34.0); MEAN CORPUSCULAR HGB CONC 32.4 G/dL (31.0-37.0); MEAN CORPUSCULAR VOLUME 89 fL (80-100); MONOCYTES # (AUTO) 0.6 K/uL (0.1-1.0); MONOCYTES % (AUTO) 7.5 % (2.0-9.0); NEUTROPHILS # (AUTO) 4.7 K/uL (1.8-7.7); NEUTROPHILS % (AUTO) 61.4 % (40.0-70.0); PLATELET COUNT (AUTO) 189 K/uL (150-450); RED BLOOD CELL COUNT(AUTO) 5.36 MIL/uL (4.00-5.20); RED CELL DISTRIBUTION WIDTH 14.6 % (11.5-14.5)
[2019-10-19 16:51] LABS: WBC,URINE >100 /HPF (0-5)
[2019-10-19 16:52] LABS: BACTERIA,URINE Many /HPF (None Seen)
[2019-10-19 16:53] LABS: SQUAMOUS EPITHELIAL CELL,UR Moderate /LPF (None Seen)
[2019-10-19 16:54] LABS: CALCIUM, TOTAL 9.2 mg/dL (8.8-10.5); CREATININE 1.16 mg/dL (0.60-1.30); POTASSIUM 3.9 mmol/L (3.5-5.1)
[2019-10-19 17:01] LABS: ALBUMIN 3.7 g/dL (3.4-5.0); BILIRUBIN,TOTAL 0.3 mg/dL (0.1-1.0); TOTAL PROTEIN, SERUM 6.8 g/dL (6.4-8.2)
[2019-10-19 18:45] VITALS: BP 111/57
== END 2019-10-19 19:01 | disposition home or self-care (01) ==
LOC: EMS 15:51
DX: N39.0 Urinary tract infection, site not specified (principal); G89.29 Other chronic pain; M54.5 Low back pain; J45.909 Unspecified asthma, uncomplicated; Z88.0 Allergy status to penicillin; Z79.899 Other long term (current) drug therapy
CPT/HCPCS: 74176; 87086

== ENCOUNTER 2023-08-10 13:54 | Inpatient (IN) | payer MEDICARE, MEDICAID ==
[~2023-08-10] VITALS: Ht 160 cm; Wt 57.8 kg
[~2023-08-10 13:54] MED LIST changes: +FLUO10CA24 PO; -PROZ10 PO; -ZIPR20CA2 PO; +ZIPR20CA38 PO
[2023-08-10] MEDS ORDERED: BUPR-565 PO (14:16)
[2023-08-10] MEDS ORDERED: VARE1TAB25 PO (14:16)
[2023-08-10] MEDS ORDERED: BUSP15 PO (14:16)
[2023-08-10] MEDS ORDERED: MULT-1303 PO (14:16)
[2023-08-10] MEDS ORDERED: FLUT16SP NASAL (14:16)
[2023-08-10] MEDS ORDERED: OLAN10TA74 PO (14:16)
[2023-08-10] MEDS ORDERED: ASPI-1444 PO (14:16)
[2023-08-10] MEDS ORDERED: ERGO500054 PO (14:16)
[2023-08-10] MEDS ORDERED: LEVO50TA11 PO (14:16)
[2023-08-10] MEDS ORDERED: FOLI-130 PO (14:16)
[2023-08-10] MEDS ORDERED: FLUT1BLS15 IH (14:16)
[2023-08-10] MEDS ORDERED: METO-391 PO (14:16)
[2023-08-10] MEDS ORDERED: FAMO20 PO (14:16)
[2023-08-10] MEDS ORDERED: FURO20 PO (14:16)
[2023-08-10] MEDS ORDERED: TRAZ-257 PO (14:16)
[2023-08-10] MEDS ORDERED: AMAN-24 PO (14:16)
[2023-08-10] MEDS ORDERED: GABA-1181 PO (14:16)
[2023-08-10] MEDS ORDERED: OLAN20TA35 PO (14:16)
[2023-08-10 14:31] LABS: BASOPHILS % (AUTO) 1.1 % (0.0-2.0); EOSINOPHILS % (AUTO) 1.9 % (1.0-6.0); HEMATOCRIT 37.4 % (36-46); HEMOGLOBIN 12.3 g/dL (12.0-16.0); LYMPHOCYTES # (AUTO) 1.8 K/uL (1.0-4.8); LYMPHOCYTES % (AUTO) 21.7 % (22.0-44.0); MEAN CORPUSCULAR HEMOGLOBIN 29.3 pg (26.0-34.0); MEAN CORPUSCULAR HGB CONC 32.9 G/dL (31.0-37.0); MEAN CORPUSCULAR VOLUME 89 fL (80-100); MONOCYTES # (AUTO) 0.5 K/uL (0.1-1.0); MONOCYTES % (AUTO) 6.5 % (2.0-9.0); NEUTROPHILS # (AUTO) 5.6 K/uL (1.8-7.7); NEUTROPHILS % (AUTO) 68.8 % (40.0-70.0); PLATELET COUNT (AUTO) 239 K/uL (150-450); RED CELL DISTRIBUTION WIDTH 14.6 % (11.5-14.5); WHITE BLOOD COUNT (AUTO) 8.1 K/uL (4.5-11.0)
[2023-08-10 14:38] LABS: CALCIUM, TOTAL 9.5 mg/dL (8.8-10.5); CREATININE 1.02 mg/dL (0.60-1.30); POTASSIUM 4.1 mmol/L (3.5-5.1)
[2023-08-10 14:45] LABS: ALBUMIN 3.2 g/dL (3.4-5.0); BILIRUBIN,TOTAL 0.4 mg/dL (0.1-1.0); TOTAL PROTEIN, SERUM 6.6 g/dL (6.4-8.2)
[2023-08-10 14:47] LABS: TROPONIN I-HIGH SENSITIVITY 9 ng/L (<51)
[2023-08-10 15:16] LABS: PROTHROMBIN TIME 10.9 SEC (9.4-11.6)
[2023-08-10 17:45] VITALS: PULSE 69; RESP 20; O2SAT 94
[2023-08-10] MEDS: ALBUTEROL SULFATE 2.5 MG/0.5 ML NEB SOLUTION NEB ONE (17:45)
[2023-08-10] MEDS: IPRATROPIUM BROMIDE 0.5 MG/2.5 ML NEB SOLUTION NEB ONE (17:45)
[2023-08-10 17:55] LABS: TROPONIN I-HIGH SENSITIVITY 7 ng/L (<51)
[2023-08-10 18:00] VITALS: PULSE 80; RESP 20; O2SAT 94
[2023-08-10] MEDS: DOCUSATE SODIUM 100 MG CAPSULE PO SCH (21:00)
[2023-08-10] MEDS ORDERED: ONDANSETRON HCL 4 MG/2 ML VIAL IVP PRN (21:00)
[2023-08-10] MEDS: GABAPENTIN 300 MG CAPSULE PO SCH (21:29)
[2023-08-10] MEDS: MetroNIDAZOLE 500 MG/NACL 100 ML IV SCH (21:30)
[2023-08-10] MEDS: *CLINICAL-LEVOFLOXACIN IVPB DOSING CLINICAL ONE (21:35)
[2023-08-10] MEDS: AMANTADINE HCL 100 MG CAPSULE PO SCH (21:38)
[2023-08-10] MEDS: LEVOFLOXACIN 500 MG/D5% WATER 100 ML IV SCH (23:03)
[2023-08-10] MEDS: HEPARIN SODIUM,PORCINE 5,000 UNITS/ML VIAL SQ SCH (23:32)
[2023-08-10 23:36] LABS: FREE T4 (FREE THYROXINE) 1.59 ng/dL (0.76-1.46)
[2023-08-11] VITALS (8 sets, daily range): BP systolic 111–146; BP diastolic 54–72; PULSE 69–85; RESP 18–20; TEMP 97.6–98.7; O2SAT 99
[2023-08-11] MEDS: FUROSEMIDE 20 MG/2 ML VIAL IVP ONE (01:33)
[2023-08-11 06:25] LABS: BASOPHILS % (AUTO) 1.1 % (0.0-2.0); EOSINOPHILS % (AUTO) 3.5 % (1.0-6.0); HEMATOCRIT 37.7 % (36-46); HEMOGLOBIN 12.4 g/dL (12.0-16.0); LYMPHOCYTES # (AUTO) 1.1 K/uL (1.0-4.8); LYMPHOCYTES % (AUTO) 15.9 % (22.0-44.0); MEAN CORPUSCULAR VOLUME 88 fL (80-100); MONOCYTES # (AUTO) 0.6 K/uL (0.1-1.0); MONOCYTES % (AUTO) 8.7 % (2.0-9.0); NEUTROPHILS % (AUTO) 70.8 % (40.0-70.0); PLATELET COUNT (AUTO) 217 K/uL (150-450); RED BLOOD CELL COUNT(AUTO) 4.29 MIL/uL (4.00-5.20); RED CELL DISTRIBUTION WIDTH 14.6 % (11.5-14.5)
[2023-08-11] MEDS: LEVOTHYROXINE SODIUM 50 MCG TABLET PO SCH (06:32)
[2023-08-11 06:40] LABS: CALCIUM, TOTAL 8.8 mg/dL (8.8-10.5); CREATININE 0.97 mg/dL (0.60-1.30); MAGNESIUM 1.9 mg/dL (1.80-2.40)
[2023-08-11 07:55] LABS: APPEARANCE,URINE CLEAR (CLEAR); BILIRUBIN,URINE NEGATIVE (NEGATIVE); COLOR,URINE COLORLESS (YELLOW); GLUCOSE, URINE (UA) NEGATIVE (NEGATIVE); KETONES,URINE NEGATIVE (NEGATIVE); LEUKOCYTE ESTERASE ,URINE SMALL (NEGATIVE); NITRATE,URINE NEGATIVE (NEGATIVE); OCCULT BLOOD,URINE NEGATIVE (NEGATIVE); PH,URINE 5.5 (5.0-8.0); PROTEIN,URINE NEGATIVE (NEGATIVE); SPECIFIC GRAVITIY, URINE 1.009 (1.003-1.030); UROBILINOGEN,URINE <=1.0 mg/dL (<=1.0)
[2023-08-11 09:58] LABS: BACTERIA,URINE None Seen /HPF (None Seen); RBC,URINE None Seen /HPF (0-2); WBC,URINE 0-2 /HPF (0-5)
[2023-08-11] MEDS: METOPROLOL SUCCINATE 50 MG ER TABLET PO SCH (10:02)
[2023-08-11] MEDS: OMEPRAZOLE 20 MG CAPSULE PO SCH (10:06)
[2023-08-11] MEDS: ASPIRIN 81 MG DR TABLET PO SCH (10:06)
[2023-08-11] MEDS: FAMOTIDINE 20 MG TABLET PO SCH (10:06)
[2023-08-11] MEDS: FOLIC ACID 1 MG TABLET PO SCH (10:06)
[2023-08-11] MEDS: FLUoxetine HCL 10 MG CAPSULE PO SCH (10:06)
[2023-08-11] MEDS: FLUTICASONE PROPIONATE 50 MCG/SPRAY 16 GM NASAL SPRAY NASAL SCH (10:06)
[2023-08-11] MEDS: MULTIVITAMINS WITH MINERALS, THERAPEUTIC TABLET PO SCH (10:06)
[2023-08-11] MEDS: FUROSEMIDE 20 MG TABLET PO SCH (10:06)
[2023-08-11] MEDS: ACETAMINOPHEN 325 MG TABLET PO PRN (10:13)
[2023-08-11] MEDS: ALBUTEROL SULFATE 2.5 MG/0.5 ML NEB SOLUTION NEB PRN (10:38)
[2023-08-11] MEDS: IPRATROPIUM BROMIDE 0.5 MG/2.5 ML NEB SOLUTION NEB PRN (10:38)
[2023-08-11] MEDS: BuPROPion HCL 150 MG SR TABLET PO SCH (12:28)
[2023-08-11] MEDS: BusPIRone HCL 15 MG TABLET PO SCH (18:10)
[2023-08-11] MEDS ORDERED: TraZODone HCL 100 MG TABLET PO SCH (21:00)
[2023-08-11] MEDS: OLANZapine 10 MG TABLET PO SCH (21:16)
[2023-08-11] MEDS ORDERED: IOHEXOL 350 MG/ML 100 ML VIAL ONE (22:04)
[2023-08-11] MEDS ORDERED: SODIUM CHLORIDE 0.9% 100 ML ONE (22:04)
[2023-08-11] MEDS: LEVOFLOXACIN 750 MG/D5% WATER 150 ML IV SCH (23:13)
[2023-08-12 01:39] VITALS: BP 142/65; PULSE 75; RESP 18; TEMP 97.6
[2023-08-12 05:56] VITALS: BP 138/69; PULSE 75; RESP 18; TEMP 98.2
[2023-08-12 07:29] VITALS: BP 135/70; PULSE 72; RESP 18; TEMP 98
[2023-08-12] MEDS: OLANZapine 10 MG TABLET PO SCH (08:12)
[2023-08-12 11:21] VITALS: BP 116/48; PULSE 72; RESP 19; TEMP 98
[2023-08-12 15:35] VITALS: BP 127/55; PULSE 70; RESP 18; TEMP 98
[2023-08-12 20:00] VITALS: BP 93/41; PULSE 79; RESP 18; TEMP 98.1
[2023-08-13] VITALS (7 sets, daily range): BP systolic 97–155; BP diastolic 48–72; PULSE 68–80; RESP 18–22; TEMP 97.5–98.3
[2023-08-13 07:20] LABS: BASOPHILS % (AUTO) 0.5 % (0.0-2.0); EOSINOPHILS % (AUTO) 3.3 % (1.0-6.0); HEMATOCRIT 40.1 % (36-46); LYMPHOCYTES # (AUTO) 1.4 K/uL (1.0-4.8); LYMPHOCYTES % (AUTO) 16.8 % (22.0-44.0); MEAN CORPUSCULAR HEMOGLOBIN 29.1 pg (26.0-34.0); MEAN CORPUSCULAR HGB CONC 32.4 G/dL (31.0-37.0); MEAN CORPUSCULAR VOLUME 90 fL (80-100); MONOCYTES # (AUTO) 0.6 K/uL (0.1-1.0); MONOCYTES % (AUTO) 7.7 % (2.0-9.0); NEUTROPHILS # (AUTO) 5.9 K/uL (1.8-7.7); NEUTROPHILS % (AUTO) 71.7 % (40.0-70.0); PLATELET COUNT (AUTO) 191 K/uL (150-450); RED BLOOD CELL COUNT(AUTO) 4.47 MIL/uL (4.00-5.20); RED CELL DISTRIBUTION WIDTH 14.9 % (11.5-14.5); WHITE BLOOD COUNT (AUTO) 8.3 K/uL (4.5-11.0)
[2023-08-13 07:33] LABS: CALCIUM, TOTAL 9.1 mg/dL (8.8-10.5); CREATININE 1.09 mg/dL (0.60-1.30); POTASSIUM 4.4 mmol/L (3.5-5.1)
[2023-08-13] MEDS ORDERED: ALBU18HF12 IH (18:17)
[2023-08-13] MEDS: MAGNESIUM HYDROXIDE SUSPENSION 30 ML UDCUP PO PRN (20:16)
[2023-08-14 05:05] VITALS: BP 144/68; PULSE 71; RESP 20; TEMP 97.5
[2023-08-14] MEDS: BISACODYL 10 MG RECTAL RECTAL SUPPOSITORY PR ONE (12:50)
[2023-08-14 15:49] VITALS: PULSE 69; RESP 20; RESP 22; O2SAT 95
[2023-08-14 16:04] VITALS: PULSE 70; RESP 22; O2SAT 99
[2023-08-14 16:33] VITALS: BP 141/63; PULSE 68; RESP 20; TEMP 98
[2023-08-14 20:12] VITALS: BP 142/49; PULSE 78; RESP 22; TEMP 97.9
[2023-08-14] MEDS ORDERED: SODIUM CHLORIDE 0.9% 50 ML ONE (20:16)
[2023-08-15] VITALS (8 sets, daily range): BP systolic 100–128; BP diastolic 50–70; PULSE 66–84; RESP 18–24; TEMP 97.8–98.3; O2SAT 93–99
== END 2023-08-15 19:50 | DRG 208 ==
LOC: EMS 13:54 → EDH 20:57 → 5S 08-11 00:41
PROVIDERS: ADMIT Internal Medicine; ATTEND Internal Medicine
PROC: 5A1935Z Respiratory Ventilation, Less than 24 Consecutive Hours (ICD-10-PCS; principal; 2023-08-15)
DX: J69.0 Pneumonitis due to inhalation of food and vomit (principal); J96.01 Acute respiratory failure with hypoxia; G92.8 Other toxic encephalopathy; J44.1 Chronic obstructive pulmonary disease with (acute) exacerbation; F20.0 Paranoid schizophrenia; R45.851 Suicidal ideations; J98.11 Atelectasis; I13.0 Hypertensive heart and chronic kidney disease with heart failure and stage 1 through stage 4 chronic kidney disease, or unspecified chronic kidney disease; I50.32 Chronic diastolic (congestive) heart failure; N18.30 Chronic kidney disease, stage 3 unspecified; E78.5 Hyperlipidemia, unspecified; F41.9 Anxiety disorder, unspecified; K21.9 Gastro-esophageal reflux disease without esophagitis; E03.9 Hypothyroidism, unspecified; F17.210 Nicotine dependence, cigarettes, uncomplicated; Z79.899 Other long term (current) drug therapy; Z88.0 Allergy status to penicillin; Z79.82 Long term (current) use of aspirin
CPT/HCPCS: 71045; 71260; 80048; 80053; 81001; 83735; 83880; 84439; 84443; 84484; 85025; 85379; 85610; 85730; 87081; 87481; 92610; 93005; 93306; 94640; 97162; 97167; 97530; 97535; 99285; G0378; J1644; J1940; J1956; J3490; J7050; Q9967; 36415-L1; 36415-TC; J7613